=== PATIENT | female | born 1950 | race Caucasian/White ===

== ENCOUNTER 2018-10-04 17:27 | Emergency (ER) | payer MEDICARE, OTHER ==
[2018-10-04 18:03] VITALS: TEMP 98
[2018-10-04] MEDS ORDERED: SODIUM CHLORIDE 0.9% 500 ML 500 ML IV STA (18:10)
--- NOTE | 2018-10-04 18:10 | ED ---
Recheck HPI - General Chief Complaint: Recheck/Abnormal Lab/Rx Stated Complaint: Sleeps nonstop, vomiting Time Seen by Provider: 10/04/18 18:08 Source: patient Mode of arrival: wheelchair Limitations: no limitations - History of Present Illness Initial Comments: 68-year-old female with history of cyclic vomiting, precancerous cells of esophagous, alcohol abuse, drinking blood manuel daily presenting today for chief complaint of vomiting x 2 weeks, patient states that she has been vomiting for the past 2 weeks she states she has had chronic vomiting for years. She states that she was told she had precancerous cells that they're monitoring, serial EG Ds. Patient states that she has felt generalized weakness in the past 2 weeks it has stayed in bed. Patient states when she does go to get up she has fallen twice the last 2 weeks the last fall 2 days prior she states she did hit her forehead patient is on eliquis previous DVT of the left leg. When symptoms persisted family brought patient to emergency department for evaluation. Patient denies any abdominal pain, difficulty breathing or swallowing, headache, dizzines, emesis melena hematochezia. Patient denies any other complaints. Remaining ROS (-). Upon arrival patient appears well. No signs of acute distress. - Related Data Allergies Allergy/AdvReac Type Severity Reaction Status Date / Time Sulfa (Sulfonamide Allergy Unknown Verified 10/04/18 18:04 Antibiotics) sulfur dioxide Allergy Unknown Verified 10/04/18 18:04 Review of Systems ROS Statement: Those systems with pertinent positive or pertinent negative responses have been documented in the HPI. ROS Other: All systems not noted in ROS Statement are negative. Past Medical History Past Medical History: Hypertension Additional Past Medical History / Comment(s): dvt left leg History of Any Multi-Drug Resistant Organisms: None Reported Additional Past Surgical History / Comment(s): egd,precancer esophagus Smoking Status: Current every day smoker Past Alcohol Use History: Daily Past Drug Use History: None Reported General Exam - General Exam Comments Initial Comments: General: The patient is awake and alert, in no distress Eye: +3 mm pupils are equal, round and reactive to light, extra-ocular movements are intact. No nystagmus. There is normal conjunctiva bilaterally. No signs of icterus. Ears, nose, mouth and throat: There are moist mucous membranes and no oral lesions. No raccoon or Sac[place]z signs. Neck: The neck is supple, there is no tenderness or JVD. Cardiovascular: There is a regular rate and rhythm. No murmur, rub or gallop is appreciated. Respiratory: Lungs are clear to auscultation, respirations are non-labored, breath sounds are equal. No wheezes, stridor, rales, or rhonchi. Gastrointestinal: Soft, non-distended, non-tender abdomen without masses or organomegaly noted. There is no rebound or guarding present. No CVA tenderness. Bowel sounds are unremarkable. Musculoskeletal: Normal ROM, no tenderness. Strength 5/5 of the UE and LE b/l. Sensation intact. Radial pulses equal bilaterally 2+. Neurological: A&O x 3. CN II-XII intact, There are no obvious motor or sensory deficits. Coordination appears grossly intact. Speech is normal. Skin: Skin is warm and dry and no rashes or lesions are noted. Psychiatric: Cooperative, appropriate mood & affect, normal judgment. Limitations: no limitations Course Vital Signs 10/04/18 18:00 Temperature 98.0 F Pulse Rate 100 Respiratory 18 Rate Blood Pressure 152/87 O2 Sat by Pulse 97 Oximetry Medical Decision Making - Medical Decision Making 68-year-old female presenting for generalized weakness. No neurological deficits on examination or complaints. Patient does have history of fall 2 days prior on with head injury. CT revealed a anterior aspect C1 fracture without significant encroachment of the foramina or spinal canal. Patient has no r adicular symptoms or weakness on examination. In addition patient was noted to have hyperkalemia on laboratory studies. Patient EKG does not show significant hyperacute T waves. No other acute findings. Patient was given calcium gluconate. However due patient C1 fracture patient be transferred to the [facility] for level of care. I discussed the case with Dr. Frost who is agreeable with transfer at this time. I discussed laboratory results as well as imaging studies with patient was agreeable transfer at this time. I received a call back from the [facility] they had spoke with on-call neurosurgeon Dr. Esteban who recommended transfer to [facility] due to lack of resources surgically at [facility]. - Lab Data Result diagrams: 10/04/18 18:58 10/04/18 18:58 Lab Results 07/08/1810/04/18 10/04/18 Range/Units 18:58 18:58 18:58 WBC 8.2 (3.8-10.6) k/uL RBC 3.37 L (3.80-5.40) m/uL Hgb 12.4 (11.4-16.0) gm/dL Hct 38.1 (34.0-46.0) % MCV 112.8 H (80.0-100.0) fL MCH 36.7 H (25.0-35.0) pg MCHC 32.5 (31.0-37.0) g/dL RDW 15.7 H (11.5-15.5) % Plt Count 316 (150-450) k/uL Neutrophils % 81 % Lymphocytes % 11 % Monocytes % 5 % Eosinophils % 1 % Basophils % 1 % Neutrophils # 6.6 (1.3-7.7) k/uL Lymphocytes # 0.9 L (1.0-4.8) k/uL Monocytes # 0.4 (0-1.0) k/uL Eosinophils # 0.1 (0-0.7) k/uL Basophils # 0.0 (0-0.2) k/uL Manual Slide Review Performed Poikilocytosis (manual Present Macrocytosis Marked A Stomatocytes Present Sodium 139 (137-145) mmol/L Potassium 6.1 H* (3.5-5.1) mmol/L Chloride 102 (98-107) mmol/L Carbon Dioxide 25 (22-30) mmol/L Anion Gap 12 mmol/L BUN 20 H (7-17) mg/dL Creatinine 1.14 H (0.52-1.04) mg/dL Est GFR (CKD-EPI)AfAm 58 (>60 ml/min/1.73 sqM) Est GFR (CKD-EPI)NonAf 50 (>60 ml/min/1.73 sqM) Glucose 92 (74-99) mg/dL Calcium 9.2 (8.4-10.2) mg/dL Magnesium 1.0 L (1.6-2.3) mg/dL Total Bilirubin 0.8 (0.2-1.3) mg/dL AST 81 H (14-36) U/L ALT 38 (9-52) U/L Alkaline Phosphatase 87 (38-126) U/L Troponin I <0.012 (0.000-0.034) ng/mL Total Protein 6.8 (6.3-8.2) g/dL Albumin 4.3 (3.5-5.0) g/dL Amylase 53 (30-110) U/L Lipase 116 (23-300) U/L - EKG Data EKG Comments: Ventricular rate 92 bpm, KS interval 122 ms, QRS duration 76 ms, QT/QTC 358/442 ms. No hyperacute T waves. No ST elevation or depression. Disposition Clinical Impression: Hyperkalemia, C1 cervical fracture, Fall, Head injury, Generalized weakness Disposition: OTHER INSTITUTION NOT DEFINED Condition: Serious Is patient prescribed a controlled substance at d/c from ED?: No Referrals: None,Stated [REFERRING] - 1-2 days Time of Disposition: 20:29 - Out of Hospital Transfer - Req. Specs Out of Hospital Transfer - Requested Specifics: Other Emergency Center ([facility]- (Dr. Esteban request))
[2018-10-04 19:11] LABS: Basophils % (A) 1 %; Eosinophils # (A) 0.1 k/uL (0-0.7); Eosinophils % (A) 1 %; HCT 38.1 % (34.0-46.0); HGB 12.4 gm/dL (11.4-16.0); Lymphocytes # (A) 0.9 k/uL (1.0-4.8); Lymphocytes % (A) 11 %; MCH 36.7 pg (25.0-35.0); MCHC 32.5 g/dL (31.0-37.0); MCV 112.8 fL (80.0-100.0); Macrocytosis Marked; Monocytes # (A) 0.4 k/uL (0-1.0); Monocytes % (A) 5 %; Neutrophils # (A) 6.6 k/uL (1.3-7.7); Neutrophils % (A) 81 %; Platelet Count 316 k/uL (150-450); RBC 3.37 m/uL (3.80-5.40); RDW 15.7 % (11.5-15.5); WBC 8.2 k/uL (3.8-10.6)
[2018-10-04 19:20] LABS: Albumin 4.3 g/dL (3.5-5.0); Calcium 9.2 mg/dL (8.4-10.2); Total Bilirubin 0.8 mg/dL (0.2-1.3); Total Protein 6.8 g/dL (6.3-8.2)
[2018-10-04 19:24] LABS: Potassium 6.1 mmol/L (3.5-5.1)
[2018-10-04] MEDS ORDERED: CALCIUM GLUCONATE 1 GM in SODIUM CHLORIDE 0.9% 100 ML IVPB ONE (19:25)
[2018-10-04] MEDS ORDERED: MAGNESIUM SULFATE-D5W PMX 1 GM in DEXTROSE/WATER 1 100ML.BAG IVPB SCH (19:30)
[2018-10-04 19:33] LABS: Poikilocytosis (M) Present; Stomatocytes Present
[2018-10-04] MEDS ORDERED: SODIUM CHLORIDE 0.9% 1,000 ML IV ONE (20:16)
--- NOTE | 2018-10-04 20:17 | CT ---
EXAMINATION TYPE: CT brain divina wo con DATE OF EXAM: 10/04/2018 COMPARISON: None HISTORY: ams. fall. CT DLP: 1300.5 mGycm Automated exposure control for dose reduction was used. TECHNIQUE: CT scan of the head and cervical spine are performed without contrast. FINDINGS: There is cerebral cortical atrophy. There is no mass effect nor midline shift. There is n o sign of intracranial hemorrhage. There is mucosal thickening in the sphenoid sinus. Cervical vertebra have normal alignment. There is some degenerative disc space narrowing from C4 to C 7 with spurring of the endplates. Facet joints are intact. The skull base is intact. There is nondisplaced fracture of the anterior arch of C1 vertebra. I see no other definite fracture. IMPRESSION: Mild atrophy. No acute intracranial abnormality. Mild sphenoid sinusitis. Possible nasal bone fracture. This could be an old fracture on the left side. Nondisplaced fracture anterior arch of C1 vertebra on the right side. This exam was discussed with ER physician at 8:15 PM.
[2018-10-04] MEDS: ALPRAZolam 0.5 MG TAB PO STA ×2 (20:20→20:22)
[2018-10-04] MEDS ORDERED: MORPHINE SULFATE 2 MG/ML SYRINGE IVP STA (20:23)
--- NOTE | 2018-10-04 20:28 | XR ---
EXAMINATION TYPE: XR KUB DATE OF EXAM: 10/04/2018 COMPARISON: NONE HISTORY: Weakness. Vomiting. TECHNIQUE: 3 views supine FINDINGS: There is no sign of intestinal obstruction or pneumoperitoneum. Fecal pattern is normal. Th ere is no sign of a mass. There are no pathologic calcifications over the kidneys. Lung bases appear clear. IMPRESSION: Nonacute abdomen.
[2018-10-04] MEDS ORDERED: METOCLOPRAMIDE 5 MG/ML 2 ML VIAL IVP STA (20:35)
[2018-10-04] MEDS ORDERED: ALBUTEROL NEBULIZED (CONC) 5 MG, SODIUM CHLORIDE 0.9% NEBULIZ 3 ML INHALATION STA ×2 (20:40)
[2018-10-04 21:13] LABS: Appearance,Urine Cloudy (Clear); Bacteria,Urine Rare /hpf; Bilirubin,Urine Negative (Negative); Blood,Urine Negative (Negative); Color,Urine Yellow; Glucose,Urine (UA) Negative (Negative); Hyaline Casts,Urine 51 /lpf (0-2); Ketones,Urine 1+ (Negative); Leukocyte Esterase,Urine Negative (Negative); Mucus,Urine Occasional /hpf; Nitrite,Urine Negative (Negative); PH, Urine 5.5 (5.0-8.0); Protein,Urine Trace (Negative); RBC,Urine <1 /hpf (0-5); Specific Gravity,Urine 1.017 (1.001-1.035); Squamous Epithelial Cell,Urine 2 /hpf (0-4); Urobilinogen,Urine <2.0 mg/dL (<2.0); WBC,Urine 1 /hpf (0-5)
[2018-10-04 21:27] VITALS: BP 120/88; RESP 16
[2018-10-04 21:46] VITALS: PULSE 100
[2018-10-04] MEDS ORDERED: INSULIN REGULAR 100 UNIT/ML VIAL IV ONE (21:52)
[2018-10-04] MEDS ORDERED: DEXTROSE 10 % IN WATER 250 ML IV ONE (21:52)
[2018-10-04] MEDS ORDERED: DEXTROSE 50% SYRINGE 50 ML IVP STA (21:53)
[2018-10-04] MEDS ORDERED: DEXTROSE 50%-WATER 50 ML VIAL IV STA (22:32)
== END 2018-10-04 22:34 | disposition short-term general hospital (02) ==
LOC: EC 17:27
DX: S12.000A Unspecified displaced fracture of first cervical vertebra, initial encounter for closed fracture (principal); E87.5 Hyperkalemia; S09.90XA Unspecified injury of head, initial encounter; R11.10 Vomiting, unspecified; R53.1 Weakness; R29.6 Repeated falls; F17.200 Nicotine dependence, unspecified, uncomplicated; Z88.2 Allergy status to sulfonamides; Z91.048 Other nonmedicinal substance allergy status; Z79.01 Long term (current) use of anticoagulants; Z86.718 Personal history of other venous thrombosis and embolism; W19.XXXA Unspecified fall, initial encounter
CPT/HCPCS: 36415; 94640; 93005; 80053; 82150; 83690; 83735; 84484; 85025; 81001; 74018; 72125; 70450; 99285; 96365; 96375 ×3; 96361; L0120; J2765; J2270; J0610

== ENCOUNTER 2021-03-16 12:34 | Inpatient (IN) | payer MEDICARE, OTHER ==
[2021-03-16] MEDS ORDERED: SODIUM CHLORIDE 0.9% 1,000 ML IV STA (12:43)
[2021-03-16 13:58] LABS: Albumin 2.8 g/dL (3.5-5.0); Calcium 6.5 mg/dL (8.4-10.2); INR 1.1 (<1.2); Partial Thromboplastin Time 30.1 sec (22.0-30.0); Prothrombin Time 11.8 sec (9.0-12.0); Total Bilirubin 0.6 mg/dL (0.2-1.3); Total Protein 5.5 g/dL (6.3-8.2)
[2021-03-16 14:03] LABS: HGB 10.5 gm/dL (11.4-16.0); Hypochromasia Slight; MCH 39.8 pg (25.0-35.0); MCV 128.1 fL (80.0-100.0); Macrocytosis Marked; Mean Platelet Volume 8.9; Platelet Count 144 k/uL (150-450); RBC 2.65 m/uL (3.80-5.40); WBC 2.7 k/uL (3.8-10.6)
--- NOTE | 2021-03-16 14:18 | XR ---
EXAMINATION TYPE: XR chest 2V DATE OF EXAM: 03/16/2021 COMPARISON: NONE TECHNIQUE: PA and lateral views submitted. HISTORY: Weakness FINDINGS: Bilateral infiltrate. Diffuse interstitial pattern. Postsurgical change overlying the cervical spine. Diffuse osteopenia. No pneumothorax. Degenerative changes of the spine. Hyperinflation suggests COPD . IMPRESSION: 1. COPD with bilateral interstitial and alveolar infiltrates correlate for pneumonia versus CHF.
--- NOTE | 2021-03-16 14:19 | XR ---
EXAMINATION TYPE: XR foot complete RT DATE OF EXAM: 03/16/2021 COMPARISON: NONE HISTORY: Pain TECHNIQUE: Three views are submitted. FINDINGS: Diffuse osteopenia with arthropathy of the first MTP joint. There is a displaced fracture base fifth metatarsal. Small calcaneal spurs are seen. Hammertoe deformities noted. Chronic appearing deformitie s of the distal third metatarsal suggestive of previous fracture. IMPRESSION: 1. Displaced fracture base fifth metatarsal. 2. Diffuse osteopenia with severe arthropathy first MTP joint.
[2021-03-16 14:21] LABS: Magnesium 0.9 mg/dL (1.6-2.3)
[2021-03-16] MEDS ORDERED: CALCIUM GLUCONATE 1 GM in SODIUM CHLORIDE 0.9% 100 ML IVPB ONE (14:29)
--- NOTE | 2021-03-16 14:31 | ED ---
Weakness HPI - General Chief complaint: Weakness Stated complaint: Weakness Time Seen by Provider: 03/16/21 12:43 Source: patient, family, EMS, RN notes reviewed Mode of arrival: EMS Limitations: no limitations - History of Present Illness Initial comments: Patient is a 71-year-old female that presents to the emergency department with complaining of generalized weakness. notes the patient does drink about a height of vodka per day. also notes that she's been complaining of right foot pain for the past 4-5 months. Patient notes that she otherwise feels okay. She did appear to be somewhat malnourished while sitting up in bed during exam and interview. She denied any chest pain shortness of breath headache nausea vomiting diarrhea constipation fever fatigue chills. - Related Data Allergies Allergy/AdvReac Type Severity Reaction Status Date / Time Sulfa (Sulfonamide Allergy Unknown Verified 03/16/21 12:57 Antibiotics) sulfur dioxide Allergy Unknown Verified 03/16/21 12:57 Review of Systems ROS Statement: Those systems with pertinent positive or pertinent negative responses have been documented in the HPI. ROS Other: All systems not noted in ROS Statement are negative. Past Medical History Past Medical History: Hypertension Additional Past Medical History / Comment(s): dvt left leg History of Any Multi-Drug Resistant Organisms: None Reported Additional Past Surgical History / Comment(s): egd,precancer esophagus Past Psychological History: No Psychological Hx Reported Smoking Status: Current every day smoker Past Alcohol Use History: Daily, Heavy Past Drug Use History: None Reported General Exam Limitations: no limitations General appearance: alert, in no apparent distress Head exam: Present: atraumatic, normocephalic, normal inspection Eye exam: Present: normal appearance, PERRL, EOMI. Absent: scleral icterus, conjunctival injection, periorbital swelling ENT exam: Present: normal exam, mucous membranes moist Neck exam: Present: normal inspection Respiratory exam: Present: normal lung sounds bilaterally. Absent: respiratory distress, wheezes, rales, rhonchi, stridor Cardiovascular Exam: Present: regular rate, normal rhythm, normal heart sounds. Absent: systolic murmur, diastolic murmur, rubs, gallop, clicks Extremities exam: Present: normal inspection, full ROM, normal capillary refill. Absent: tenderness, pedal edema, joint swelling, calf tenderness Neurological exam: Present: alert, oriented X3 Psychiatric exam: Present: normal affect, normal mood Skin exam: Present: warm, dry, intact, normal color. Absent: rash Course Vital Signs 03/16/21 03/16/21 12:39 13:01 Temperature 99.3 F Pulse Rate 82 Respiratory 22 22 Rate Blood Pressure 118/81 O2 Sat by Pulse 92 L Oximetry EKG Findings - EKG Comments: EKG Findings:: Ventricular rate 105 bpm, AR interval 122 ms, QRS duration 72 ms, QTC 454 ms, PRT axes 60/50/57. Sinus tachycardia with frequent and consecutive premature ventricular complexes, normal ECG. Medical Decision Making - Medical Decision Making 71-year-old female with weakness. EKG, labs, cardiac cath technician, chest x-ray, 1 L normal saline ordered. Labs: White blood cells 2.7, magnesium 0.9, calcium 6.5, troponin negative. Chest x-ray: COPD with bilateral interstitial and alveolar infiltrates correlate for pneumonia versus CHF. Right foot x-ray: Displaced fracture a's fifth metatarsal. Diffuse osteopenia with severe arthropathy first MTP joint. Given patient's labs and history patient will be admitted for observation for hypomagnesemia and hypocalcemia. Case discussed with Dr. Rhodes, patient will be admitted for observation. Dr. Vinson was consulted and will except the admit. - Lab Data Result diagrams: 03/16/21 13:29 03/16/21 13:29 Lab Results 03/16/21 03/16/21 03/16/21 Range/Units 13:29 13:29 13:29 WBC 2.7 L (3.8-10.6) k/uL RBC 2.65 L (3.80-5.40) m/uL Hgb 10.5 L (11.4-16.0) gm/dL Hct 34.0 (34.0-46.0) % MCV 128.1 H (80.0-100.0) fL MCH 39.8 H (25.0-35.0) pg MCHC 31.0 (31.0-37.0) g/dL RDW 14.0 (11.5-15.5) % Plt Count 144 L (150-450) k/uL MPV 8.9 Neutrophils % (Manual) 71 % Lymphocytes % (Manual) 24 % Monocytes % (Manual) 5 % Neutrophils # (Manual) 1.92 (1.3-7.7) k/uL Lymphocytes # (Manual) 0.65 L (1.0-4.8) k/uL Monocytes # (Manual) 0.14 (0-1.0) k/uL Nucleated RBCs 0 (0-0) /100 WBC Polychromasia Present Hypochromasia Slight Macrocytosis Marked A Stomatocytes Present PT 11.8 (9.0-12.0) sec INR 1.1 (<1.2) APTT 30.1 H (22.0-30.0) sec Sodium 140 (137-145) mmol/L Potassium 4.0 (3.5-5.1) mmol/L Chloride 110 H (98-107) mmol/L Carbon Dioxide 22 (22-30) mmol/L Anion Gap 8 mmol/L BUN 17 (7-17) mg/dL Creatinine 1.04 (0.52-1.04) mg/dL Est GFR (CKD-EPI)AfAm 63 (>60 ml/min/1.73 sqM) Est GFR (CKD-EPI)NonAf 55 (>60 ml/min/1.73 sqM) Glucose 92 (74-99) mg/dL Calcium 6.5 L (8.4-10.2) mg/dL Magnesium 0.9 L* (1.6-2.3) mg/dL Total Bilirubin 0.6 (0.2-1.3) mg/dL AST 47 H (14-36) U/L ALT 15 (4-34) U/L Alkaline Phosphatase 136 H (38-126) U/L Troponin I (0.000-0.034) ng/mL Total Protein 5.5 L (6.3-8.2) g/dL Albumin 2.8 L (3.5-5.0) g/dL 03/16/21 Range/Units 13:29 WBC (3.8-10.6) k/uL RBC (3.80-5.40) m/uL Hgb (11.4-16.0) gm/dL Hct (34.0-46.0) % MCV (80.0-100.0) fL MCH (25.0-35.0) pg MCHC (31.0-37.0) g/dL RDW (11.5-15.5) % Plt Count (150-450) k/uL MPV Neutrophils % (Manual) % Lymphocytes % (Manual) % Monocytes % (Manual) % Neutrophils # (Manual) (1.3-7.7) k/uL Lymphocytes # (Manual) (1.0-4.8) k/uL Monocytes # (Manual) (0-1.0) k/uL Nucleated RBCs (0-0) /100 WBC Polychromasia Hypochromasia Macrocytosis Stomatocytes PT (9.0-12.0) sec INR (<1.2) APTT (22.0-30.0) sec Sodium (137-145) mmol/L Potassium (3.5-5.1) mmol/L Chloride (98-107) mmol/L Carbon Dioxide (22-30) mmol/L Anion Gap mmol/L BUN (7-17) mg/dL Creatinine (0.52-1.04) mg/dL Est GFR (CKD-EPI)AfAm (>60 ml/min/1.73 sqM) Est GFR (CKD-EPI)NonAf (>60 ml/min/1.73 sqM) Glucose (74-99) mg/dL Calcium (8.4-10.2) mg/dL Magnesium (1.6-2.3) mg/dL Total Bilirubin (0.2-1.3) mg/dL AST (14-36) U/L ALT (4-34) U/L Alkaline Phosphatase (38-126) U/L Troponin I <0.012 (0.000-0.034) ng/mL Total Protein (6.3-8.2) g/dL Albumin (3.5-5.0) g/dL - EKG Data -: EKG Interpreted by Pr EKG shows normal: sinus rhythm Rate: normal EKG Comments: Ventricular rate 105 bpm, AR interval 122 ms, QRS duration 72 ms, QTC 454 ms, PRT axes 60/50/57. Sinus tachycardia with frequent and consecutive premature ventricular complexes, normal ECG. - Radiology Data Radiology results: report reviewed, image reviewed Chest x-ray: COPD with bilateral interstitial and alveolar infiltrates correlate for pneumonia versus CHF. Right foot x-ray: Displaced fracture a's fifth metatarsal. Diffuse osteopenia with severe arthropathy first MTP joint. Disposition Clinical Impression: Hypomagnesemia, Hypocalcemia Disposition: ADMITTED IP TO THIS HOSP Condition: Stable Is patient prescribed a controlled substance at d/c from ED?: No Referrals: None,Stated [Primary Care Provider] - 1-2 days Time of Disposition: 15:28
[2021-03-16] MEDS: MAGNESIUM SULFATE-D5W PMX 1 GM in DEXTROSE/WATER 1 100ML.BAG IVPB SCH ×3 (14:38→23:55)
[2021-03-16 14:58] LABS: Lymphocytes # (M) 0.65 k/uL (1.0-4.8); Monocytes # (M) 0.14 k/uL (0-1.0); Neutrophils # (M) 1.92 k/uL (1.3-7.7); Neutrophils % (M) 71 %; Nucleated Red Blood Cells 0 /100 WBC (0-0); Polychromasia Present; Stomatocytes Present; Total Cells Counted 99
[2021-03-16] MEDS ORDERED: NALOXONE 0.4 MG/ML 1 ML VIAL IV PRN (15:16)
[2021-03-16] MEDS ORDERED: SODIUM CHLORIDE 0.9% 1,000 ML IV SCH (15:30)
[2021-03-16] MEDS ORDERED: LORazepam 2 MG/ML INJ IV PRN ×2 (19:21)
[2021-03-16] MEDS ORDERED: Potassium Replacement Protocol 1 EACH MISC MISCELLANE PRN (19:21)
[2021-03-16] MEDS ORDERED: Magnesium Replacement Protocol 1 EACH MISC MISCELLANE PRN (19:21)
[2021-03-16] MEDS ORDERED: THIAMINE 100 MG/ML 2 ML VIAL IM STA (19:21)
--- NOTE | 2021-03-16 20:07 | HP ---
HISTORY AND PHYSICAL DATE OF SERVICE: 03/16/2021. CHIEF COMPLAINT: Weakness and some change in mental status. HISTORY OF PRESENT ILLNESS: This 71-year-old woman with a past medical history of hypertension, history of DVT of the left leg. Apparently also had history of smoking and alcohol. Last drink was about a month ago, according to her, but the patient and some change in mental status. Patient taken to [facility] and was admitted for further evaluation treatment. Patient drink vodka every day. The patient also had some right foot pain for the past 4 or 5 months and an x-ray of the foot was also done which showed displaced fracture of the 5th metatarsal and diffuse osteopenia was also noted. The patient was admitted for further evaluation and treatment. The patient's Covid 19 was also found to be positive. Patient had multiple lab abnormalities, partly related to alcohol as well. The patient also has severe hypomagnesemia. PAST MEDICAL HISTORY: History of hypertension, DVT of the legs, history of nicotine dependence, EtOH. MEDICATIONS: Home medications are: Benadryl, omeprazole, trazodone, Eliquis, Tylenol. Doses reviewed. ALLERGIES: SULFA AND ASPIRIN. FAMILY HISTORY: No history of heart disease or strokes in the family. SOCIAL HISTORY: History of smoking, alcohol as mentioned. REVIEW OF SYSTEMS: ENT: Diminished vision. Diminished hearing. CARDIOVASCULAR system: No angina or palpitations. RESPIRATORY: As mentioned earlier. GI no nausea or vomiting. no dysuria. NERVOUS SYSTEM: No numbness or weakness. ALLERGY/IMMUNOLOGY: No asthma or hayfever. MUSCULOSKELETAL as mentioned earlier. HEMATOLOGY/ONCOLOGY: No history of anemia. ENDOCRINE: No history of diabetes or hypothyroidism. CONSTITUTIONAL: As mentioned. DERMATOLOGY: Negative. RHEUMATOLOGY: Negative. PSYCHIATRIC: As mentioned earlier. PHYSICAL EXAMINATION: Alert and oriented times three. Pulse 82, blood pressure 118/81, respirations 22, temperature 99.3, pulse ox 92% on room air. HEENT: Conjunctivae normal. CARDIOVASCULAR: S1, S2 muffled. RESPIRATION: Breath sounds diminished in the bases. A few scattered rhonchi. ABDOMEN: Soft, nontender. No mass palpable. LEGS: No edema. No swelling. Right foot pain and tenderness present. SKIN: No ulcers, rashes or bleeding. JOINTS: No active deforming arthropathy. NERVOUS SYSTEM: No focal deficits. LABS: WBC 2.7, hemoglobin 10.5, and sodium 140, potassium 4. Magnesium 1.9. ASSESSMENT: 1. Change in mental status, acute metabolic encephalopathy, possibly early delirium tremens. 2. History of ETOH. 3. Fracture of the fifth metatarsal on the right. 4. Severe gait dysfunction. 5. Pancytopenia, possibly secondary to ETOH. 6. Acute COVID-19 infection. 7. Severe hypomagnesemia. 8. Severe hypocalcemia. 9. Increased AST with mild alcoholic hepatitis. 10.Hypoalbuminemia with possibly severe protein-calorie malnutrition with body mass index of 17.6. 11.Rule out chronic liver disease. 12.History of hypertension. 13.History of deep vein thrombosis of the left leg. 14.History of possible Hansen's esophagus. 15.History of nicotine dependence. 16.History of ETOH. 17.FULL CODE. RECOMMENDATIONS AND DISCUSSION: This 71-year-old woman who presented with multiple complex medical issues, at this time I recommend continue the current medications, management and symptomatic treatment, CIWA protocol. Supplement vitamins. I would also recommend PT/OT evaluation, possible ECF rehab. Recommend Gastroenterology consultation and evaluation for history of precancer lesion in the esophagus. The patient has got significant weight loss and features of malnutrition. Prognosis extremely guarded because of multiple complex medical issues. Orthopedic evaluation also being sought for the right foot fracture and further recommendations to follow. Recommend the patient follow up with primary physician closely in the outpatient setting. MAGALY / LONNIE: [id number] / MTDD
[2021-03-16] MEDS: APIXABAN 5 MG TAB PO SCH (21:23)
[2021-03-16] MEDS: traZODone HCL 50 MG TAB PO SCH (21:23)
[2021-03-16] MEDS: 0.9% NACL WITH KCL 20 MEQ/L 1,000 ML with THIAMINE 100 MG, FOLIC ACID 1 MG IV SCH ×3 (22:06)
[2021-03-16 22:35] LABS: C Reactive Protein 15.8 mg/dL (<1.0)
[2021-03-16] MEDS: CHOLECALCIFEROL 25 MCG (1000 IU) TABLET PO SCH (22:53)
[2021-03-16] MEDS: ZINC SULFATE 220 MG CAP PO SCH (22:53)
[2021-03-16] MEDS: LORazepam 2 MG/ML INJ IV PRN (22:54)
[2021-03-17] MEDS: MAGNESIUM SULFATE-D5W PMX 1 GM in DEXTROSE/WATER 1 100ML.BAG IVPB SCH ×3 (01:12→03:36)
[2021-03-17] MEDS: ZINC SULFATE 220 MG CAP PO SCH (08:05)
[2021-03-17] MEDS: PANTOPRAZOLE 40 MG TABLET PO SCH (08:05)
[2021-03-17] MEDS: CHOLECALCIFEROL 25 MCG (1000 IU) TABLET PO SCH (08:05)
[2021-03-17] MEDS: APIXABAN 5 MG TAB PO SCH (08:06)
[2021-03-17] MEDS: METOPROLOL SUCCINATE (ER) 25 MG TAB.ER.24H PO SCH (09:07)
[2021-03-17 09:08] LABS: HCT 24.5 % (37.2-46.3); HGB 7.6 g/dL (12.0-15.0); MCH 39.4 pg (27.0-32.0); MCV 126.9 fL (80.0-97.0); Mean Platelet Volume 10.9 fL (9.5-12.2); Platelet Count 115 X 10*3/uL (140-440); RBC 1.93 X 10*6/uL (4.10-5.20); RDW 13.2 % (11.5-14.5); WBC 2.35 X 10*3/uL (4.50-10.00)
[2021-03-17 10:05] LABS: Basophils # (A) 0.01 X 10*3/uL (0.00-0.10); Basophils % (A) 0.4 %; Eosinophils # (A) 0.02 X 10*3/uL (0.04-0.35); Eosinophils % (A) 0.9 %; Lymphocytes # (A) 0.72 X 10*3/uL (0.90-5.00); Lymphocytes % (A) 30.6 %; Monocytes # (A) 0.22 X 10*3/uL (0.20-1.00); Monocytes % (A) 9.4 %; Neutrophils # (A) 1.37 X 10*3/uL (1.80-7.70); Neutrophils % (A) 58.3 %
[2021-03-17 10:06] LABS: Macrocytosis (M) 2+
[2021-03-17 10:20] LABS: African American GFR (CKD) 86.6 (60.0-200.0); Albumin 2.4 g/dL (3.8-4.9); Albumin/Globulin Ratio 1.33 (1.60-3.17); Anion Gap 9.9 mmol/L (10.00-18.00); BUN/Creat Ratio 15.63 Ratio (12.00-20.00); Blood Urea Nitrogen 12.5 mg/dL (9.0-27.0); Calcium 6.6 mg/dL (8.7-10.3); Carbon Dioxide 18.1 mmol/L (20.0-27.5); Globulin 1.8 g/dL (1.6-3.3); Magnesium 3.1 mg/dL (1.5-2.4); Non-African American GFR(CKD) 74.7 (60.0-200.0); Potassium 3.5 mmol/L (3.5-5.5); Total Bilirubin 0.3 mg/dL (0.30-1.20); Total Protein 4.2 g/dL (6.2-8.2)
--- NOTE | 2021-03-17 10:44 | P.CRDCN ---
History of Present Illness Consult date: 03/17/21 History of present illness: CHIEF COMPLAINT: Atrial fibrillation HISTORY OF PRESENT ILLNESS: This is a 71-year-old female with a past medical history significant for hypertension, DVT, alcohol abuse, nicotine dependence. Patient does not follow with a loan assistant. We have been asked to see the patient in consultation for tachycardia and possible atrial fibrillation. Patient is admitted to the hospital secondary to Covid. Patient is on room air with oxygen saturations greater than 92%. Blood pressure 100/63. Telemetry reveals heart rate between 80 and 120. Patient is maintaining sinus mechanism with frequent PACs. No evidence of atrial fibrillation visualized. DIAGNOSTICS: EKG reveals sinus tachycardia with PACs Chest xray COPD with bilateral interstitial and alveolar infiltrates correlate for pneumonia versus CHF Laboratory data: WBC 2.35. Hemoglobin 7.6. Platelet count 115. D-dimer 0.95. Sodium 141. Potassium 3.5. BUN 12.5. Creatinine 0.8. Current home cardiac medications include Eliquis 5 mg twice a day REVIEW OF SYSTEMS: Thorough review of systems not completed secondary to limited evaluation/examination due to Covid19 PHYSICAL EXAM: Thorough physical exam not completed secondary to limited evaluation/examination due to Covid19 ASSESSMENT: Covid 19 Sinus tachycardia with PACS, no atrial fibrillation visualized Pancytopenia History of DVT Alcohol abuse Nicotine dependence Hypomagnesemia PLAN: Obtain 2-D echo to assess cardiac structure and function Continue telemetry monitoring Continue to monitor electrolytes and supplement as needed Begin metoprolol succinate 25 mg daily Continue Eliquis Further recommendations pending patient's course Nurse practitioner note has been reviewed by physician. Signing provider agrees with the documented findings, assessment, and plan of care. Past Medical History Past Medical History: Hypertension Additional Past Medical History / Comment(s): dvt left leg History of Any Multi-Drug Resistant Organisms: None Reported Additional Past Surgical History / Comment(s): egd,precancer esophagus Past Psychological History: No Psychological Hx Reported Smoking Status: Current every day smoker Past Alcohol Use History: Daily, Heavy Past Drug Use History: None Reported Medications and Allergies Home Medications Medication Instructions Recorded Confirmed Type Acetaminophen [Tylenol 8 Hour] 650 mg PO Q6H PRN 03/16/21 03/16/21 History Apixaban [Eliquis] 5 mg PO BID 03/16/21 03/16/21 History Omeprazole 10 mg PO DAILY 03/16/21 03/16/21 History diphenhydrAMINE [Benadryl] 25 mg PO DAILY PRN 03/16/21 03/16/21 History traZODone HCL 25 mg PO HS 03/16/21 03/16/21 History Allergies Allergy/AdvReac Type Severity Reaction Status Date / Time Sulfa (Sulfonamide Allergy Rash/Hives Verified 03/16/21 15:53 Antibiotics) sulfur dioxide Allergy Rash/Hives Verified 03/16/21 15:53 aspirin AdvReac Nausea & Verified 03/16/21 15:53 Vomiting Physical Exam Vitals: Vital Signs Temp Pulse Pulse Resp BP BP Pulse Ox 03/17/21 09:00 98.7 F 83 17 100/63 93 L 03/17/21 05:29 99.1 F 98 17 101/66 96 03/17/21 02:17 97.6 F 113 H 87/54 90 L 03/17/21 01:34 101 H 03/16/21 23:44 98.3 F 138 H 16 122/85 97 03/16/21 21:01 72 03/16/21 20:01 99.1 F 134 H 18 127/89 97 03/16/21 20:00 138 H 16 03/16/21 17:56 99.2 F 100 20 121/69 96 03/16/21 16:58 100 18 112/68 96 03/16/21 13:01 22 03/16/21 12:39 99.3 F 82 22 118/81 92 L Intake and Output 03/16/21 03/17/21 03/17/21 22:59 06:59 14:59 Intake Total 300 Balance 300 Intake: Oral 300 Other: # Voids 2 # Bowel Movements 1 3 Weight 49.442 kg Results 03/17/21 06:11 03/17/21 06:11 Cardiac Enzymes 03/16/21 03/16/21 03/16/21 Range/Units 13:29 13:29 13:29 AST 47 H (14-36) U/L Lactate Dehydrogenase 701 H (313-618) U/L Troponin I <0.012 (0.000-0.034) ng/mL 03/17/21 Range/Units 06:11 AST 30 (14-36) U/L Lactate Dehydrogenase (313-618) U/L Troponin I (0.000-0.034) ng/mL Coagulation 03/16/21 Range/Units 13:29 PT 11.8 (9.0-12.0) sec APTT 30.1 H (22.0-30.0) sec CBC 03/16/21 03/17/21 Range/Units 13:29 06:11 WBC 2.7 L 2.35 L (3.8-10.6) k/uL RBC 2.65 L 1.93 L (3.80-5.40) m/uL Hgb 10.5 L 7.6 L (11.4-16.0) gm/dL Hct 34.0 24.5 L (34.0-46.0) % Plt Count 144 L 115 L (150-450) k/uL Comprehensive Metabolic Panel 03/16/21 03/17/21 Range/Units 13:29 06:11 Sodium 140 141 (137-145) mmol/L Potassium 4.0 3.5 (3.5-5.1) mmol/L Chloride 110 H 113 H (98-107) mmol/L Carbon Dioxide 22 18.1 L (22-30) mmol/L BUN 17 12.5 (7-17) mg/dL Creatinine 1.04 0.8 (0.52-1.04) mg/dL Glucose 92 96 (74-99) mg/dL Calcium 6.5 L 6.6 L (8.4-10.2) mg/dL AST 47 H 30 (14-36) U/L ALT 15 11 (4-34) U/L Alkaline Phosphatase 136 H 116 (38-126) U/L Total Protein 5.5 L 4.2 L (6.3-8.2) g/dL Albumin 2.8 L 2.4 L (3.5-5.0) g/dL Current Medications Generic Name Dose Route Start Last Admin Trade Name Freq PRN Reason Stop Dose Admin Hydrocodone Bitart/Acetaminophen 1 each 03/16/21 19:21 Hydrocodone/Apap 5-325mg 1 Each Tab PO Q6HR PRN Pain Apixaban 5 mg 03/16/21 21:00 03/17/21 08:06 Apixaban 5 Mg Tab PO 5 mg BID GWYN Administration Protocol Cholecalciferol 25 mcg 03/16/21 19:30 03/17/21 08:05 Cholecalciferol 25 Mcg (1000 Iu) Tablet PO 25 mcg DAILY GWYN Administration Thiamine HCl 100 mg/ Folic 1,001.2 mls @ 50 mls/hr 03/16/21 19:30 03/16/21 22:06 Acid 1 mg/ Potassium Chloride/ IV 50 mls/hr Sodium Chloride .Q20H2M GWYN Administration Lorazepam 1 mg 03/16/21 19:21 03/16/21 22:54 Lorazepam 2 Mg/Ml Inj IV 1 mg Q2HR PRN Administration CIWA 8 or 9 Lorazepam 1 mg 03/16/21 19:21 Lorazepam 2 Mg/Ml Inj IV Q1HR PRN CIWA 10 to 15 Lorazepam 2 mg 03/16/21 19:21 Lorazepam 2 Mg/Ml Inj IV 03/18/21 19:22 Q10M PRN CIWA 16 or higher Metoprolol Succinate 25 mg 03/17/21 09:00 03/17/21 09:07 Metoprolol Succinate (Er) 25 Mg Tab.Er.24h PO 25 mg DAILY GWYN Administration Miscellaneous Information 1 each 03/16/21 19:21 Magnesium Replacement Protocol 1 Each Misc MISCELLANE DAILY PRN Per Protocol Protocol Miscellaneous Information 1 each 03/16/21 19:21 Potassium Replacement Protocol 1 Each Misc MISCELLANE DAILY PRN Per Protocol Protocol Naloxone HCl 0.2 mg 03/16/21 15:16 Naloxone 0.4 Mg/Ml 1 Ml Vial IV Q2M PRN Opioid Reversal Pantoprazole Sodium 40 mg 03/17/21 07:30 03/17/21 08:05 Pantoprazole 40 Mg Tablet PO 40 mg DAILY@0730 GWYN Administration Trazodone HCl 25 mg 03/16/21 21:00 03/16/21 21:23 Trazodone Hcl 50 Mg Tab PO 25 mg HS GWYN Administration Zinc Sulfate 220 mg 03/16/21 19:30 03/17/21 08:05 Zinc Sulfate 220 Mg Cap PO 220 mg DAILY GWYN Administration Intake and Output 03/16/21 03/17/21 03/17/21 22:59 06:59 14:59 Intake Total 300 Balance 300 Intake: Oral 300 Other: # Voids 2 # Bowel Movements 1 3 Weight 49.442 kg 03/17/21 06:11 03/17/21 06:11
[2021-03-17] MEDS: guaiFENesin SYRUP 100MG/5ML 200 MG/10 ML CUP PO PRN (12:17)
[2021-03-17 13:13] VITALS: BMI 17.6
--- NOTE | 2021-03-17 14:08 | P.PN ---
Progress Note - Text Progress Note Date: 03/17/21 The patient's chart was reviewed and I spoke with the nursing staff. The patient is currently in the hospital with hypomagnesia. She Covid positive as well. The patient told the ER that she has had pain for 4-5 months in the right foot. No known injury. X-rays of the right foot reveals a 5th metatarsal base fracture (Zone 1). X-rays and the case were discussed with Dr. Kay. We are recommending a post op shoe and weightbearing as tolerated on the right foot. The patient may follow up with Dr. Kay in 2 weeks upon discharge from the hospital.
--- NOTE | 2021-03-17 14:31 | P.CONS ---
History of Present Illness - Reason for Consult Consult date: 03/17/21 Anemia Requesting physician: Tristan Vinson - Chief Complaint Generalized weakness - History of Present Illness This is 71-year-old female who presented to the emergency department yesterday with her for generalized weakness. The patient has a past medical history including hypertension, history of DVT and alcohol abuse. Apparently the patient drinks a fifth of bed could daily and has a drink for several years. She also is a smoker of one pack per day for greater than 20-30 years who states she recently quit 2 weeks ago. The patient is somewhat of a poor hi storian and initially stated that she had an EGD done in [place] however now states she did not have an EGD done but was told that she had something on her esophagus and she was supposed to have an EGD done. She states that was about 8 months ago but she had never followed up as she moved to [place] about 2 weeks ago. Patient states that she tested positive for Kovic 2 weeks ago in [place] and she had again PCR is positive. She denies any abdominal pain, nausea, vomiting, black stool but states that she occasionally has a little bit of blood in her stool perhaps once a month. She denies any previous history of colonoscopy. She has not had any recent bleeding she states. She is on Eliquis for hsitory of DVT. On admission she had a hemoglobin of 10.5 with a repeat today of 7.6. She has a macrocytic anemia, pancytopenia CONSISTENT WITH ALCOHOLIC CIRRHOSIS OF THE LIVER. IRON STUDIES WERE ORDERED AND PENDING. TOTAL BILIRUBIN 0.3 AST 30 ALT 11 ALKALINE PHOSPHATASE 116. Review of Systems REVIEW OF SYSTEMS: CARDIOPULMONARY: No chest pain or shortness of breath. Gastrointestinal: No abdominal pain. No nausea or vomiting. No hematemesis, coffee-ground emesis. No rectal bleeding, or melena. She states she has occasional blood in stool perhaps once a month however nothing recently. GENITOURINARY: No dysuria or hematuria. MUSCULOSKELETAL: Reports normal range of motion., Joint pain. SKIN: No rashes. No jaundice. ENDOCRINE: No chills, fevers. No excessive weight gain or loss. No polydipsia or polyuria. PSYCHIATRIC: Unremarkable. NEUROLOGY: No change in mental status. Denies dizziness, headache. ENT: Vision unremarkable. CONSTITUTIONAL: No recent weight loss. No fever, chills, night sweats. Past Medical History Past Medical History: Hypertension Additional Past Medical History / Comment(s): dvt left leg History of Any Multi-Drug Resistant Organisms: None Reported Additional Past Surgical History / Comment(s): egd,precancer esophagus Past Psychological History: No Psychological Hx Reported Smoking Status: Current every day smoker Past Alcohol Use History: Daily, Heavy Past Drug Use History: None Reported Medications and Allergies Home Medications Medication Instructions Recorded Confirmed Type Acetaminophen [Tylenol 8 Hour] 650 mg PO Q6H PRN 03/16/21 03/16/21 History Apixaban [Eliquis] 5 mg PO BID 03/16/21 03/16/21 History Omeprazole 10 mg PO DAILY 03/16/21 03/16/21 History diphenhydrAMINE [Benadryl] 25 mg PO DAILY PRN 03/16/21 03/16/21 History traZODone HCL 25 mg PO HS 03/16/21 03/16/21 History Allergies Allergy/AdvReac Type Severity Reaction Status Date / Time Sulfa (Sulfonamide Allergy Rash/Hives Verified 03/16/21 15:53 Antibiotics) sulfur dioxide Allergy Rash/Hives Verified 03/16/21 15:53 aspirin AdvReac Nausea & Verified 03/16/21 15:53 Vomiting Physical Exam Vitals: Vital Signs Temp Pulse Pulse Resp BP BP Pulse Ox 03/17/21 09:00 98.7 F 83 17 100/63 93 L 03/17/21 05:29 99.1 F 98 17 101/66 96 03/17/21 02:17 97.6 F 113 H 87/54 90 L 03/17/21 01:34 101 H 03/16/21 23:44 98.3 F 138 H 16 122/85 97 03/16/21 21:01 72 03/16/21 20:01 99.1 F 134 H 18 127/89 97 03/16/21 20:00 138 H 16 03/16/21 17:56 99.2 F 100 20 121/69 96 03/16/21 16:58 100 18 112/68 96 03/16/21 13:01 22 03/16/21 12:39 99.3 F 82 22 118/81 92 L Intake and Output 03/16/21 03/17/21 03/17/21 22:59 06:59 14:59 Intake Total 300 Balance 300 Intake: Oral 300 Other: # Voids 2 # Bowel Movements 1 3 Weight 49.442 kg General appearance: The patient is alert, oriented, appears in no acute distress. HET: Head is normocephalic and atraumatic. Conjunctiva pink. Sclera anicteric. Neck: Supple without lymphadenopathy. Trachea midline. Heart: S1 S2. Regular rate and rhythm. Lungs: Clear to auscultation. Abdomen: Soft, nontender, nondistended with bowel sounds. No guarding or rigidity. Skin: No rashes. No jaundice. Extremities: Normal skin color and turgor. No pedal edema. Neurological: No focal deficits. Alert and oriented x3. Results CBC & Chem 7: 03/17/21 06:11 03/17/21 06:11 Labs: Abnormal Lab Results - Last 24 Hours (Table) 03/16/21 03/16/21 03/16/21 Range/Units 13:29 13:29 13:29 WBC 2.7 L (3.8-10.6) k/uL RBC 2.65 L (3.80-5.40) m/uL Hgb 10.5 L (11.4-16.0) gm/dL Hct (37.2-46.3) % MCV 128.1 H (80.0-100.0) fL MCH 39.8 H (25.0-35.0) pg MCHC (32.0-37.0) g/dL Plt Count 144 L (150-450) k/uL Plt Count Comment Neutrophils # (1.80-7.70) X 10*3/uL Lymphocytes # (0.90-5.00) X 10*3/uL Lymphocytes # (Manual) 0.65 L (1.0-4.8) k/uL Eosinophils # (0.04-0.35) X 10*3/uL Macrocytosis Marked A ESR (0-20) mm/hr APTT 30.1 H (22.0-30.0) sec D-Dimer (<0.60) mg/L FEU Chloride 110 H (98-107) mmol/L Carbon Dioxide (20.0-27.5) mmol/L Anion Gap (10.00-18.00) mmol/L Calcium 6.5 L (8.4-10.2) mg/dL Magnesium 0.9 L* (1.6-2.3) mg/dL Ferritin (10.0-291.0) ng/mL AST 47 H (14-36) U/L Alkaline Phosphatase 136 H (38-126) U/L Lactate Dehydrogenase (313-618) U/L C-Reactive Protein (<1.0) mg/dL Total Protein 5.5 L (6.3-8.2) g/dL Albumin 2.8 L (3.5-5.0) g/dL Albumin/Globulin Ratio (1.60-3.17) g/dL Coronavirus (PCR) (Not Detectd) 03/16/21 03/16/21 03/16/21 Range/Units 13:29 16:20 21:15 WBC (3.8-10.6) k/uL RBC (3.80-5.40) m/uL Hgb (11.4-16.0) gm/dL Hct (37.2-46.3) % MCV (80.0-100.0) fL MCH (25.0-35.0) pg MCHC (32.0-37.0) g/dL Plt Count (150-450) k/uL Plt Count Comment Neutrophils # (1.80-7.70) X 10*3/uL Lymphocytes # (0.90-5.00) X 10*3/uL Lymphocytes # (Manual) (1.0-4.8) k/uL Eosinophils # (0.04-0.35) X 10*3/uL Macrocytosis ESR (0-20) mm/hr APTT (22.0-30.0) sec D-Dimer 0.95 H (<0.60) mg/L FEU Chloride (98-107) mmol/L Carbon Dioxide (20.0-27.5) mmol/L Anion Gap (10.00-18.00) mmol/L Calcium (8.4-10.2) mg/dL Magnesium (1.6-2.3) mg/dL Ferritin 665.0 H (10.0-291.0) ng/mL AST (14-36) U/L Alkaline Phosphatase (38-126) U/L Lactate Dehydrogenase 701 H (313-618) U/L C-Reactive Protein 15.8 H (<1.0) mg/dL Total Protein (6.3-8.2) g/dL Albumin (3.5-5.0) g/dL Albumin/Globulin Ratio (1.60-3.17) g/dL Coronavirus (PCR) Detected A (Not Detectd) 03/17/21 03/17/21 03/17/21 Range/Units 06:11 06:11 06:11 WBC 2.35 L (3.8-10.6) k/uL RBC 1.93 L (3.80-5.40) m/uL Hgb 7.6 L (11.4-16.0) gm/dL Hct 24.5 L (37.2-46.3) % MCV 126.9 H (80.0-100.0) fL MCH 39.4 H (25.0-35.0) pg MCHC 31.0 L (32.0-37.0) g/dL Plt Count 115 L (150-450) k/uL Plt Count Comment DECREASED A Neutrophils # 1.37 L (1.80-7.70) X 10*3/uL Lymphocytes # 0.72 L (0.90-5.00) X 10*3/uL Lymphocytes # (Manual) (1.0-4.8) k/uL Eosinophils # 0.02 L (0.04-0.35) X 10*3/uL Macrocytosis ESR 23 H (0-20) mm/hr APTT (22.0-30.0) sec D-Dimer (<0.60) mg/L FEU Chloride 113 H (98-107) mmol/L Carbon Dioxide 18.1 L (20.0-27.5) mmol/L Anion Gap 9.90 L (10.00-18.00) mmol/L Calcium 6.6 L (8.4-10.2) mg/dL Magnesium 3.1 H (1.6-2.3) mg/dL Ferritin (10.0-291.0) ng/mL AST (14-36) U/L Alkaline Phosphatase (38-126) U/L Lactate Dehydrogenase (313-618) U/L C-Reactive Protein (<1.0) mg/dL Total Protein 4.2 L (6.3-8.2) g/dL Albumin 2.4 L (3.5-5.0) g/dL Albumin/Globulin Ratio 1.33 L (1.60-3.17) g/dL Coronavirus (PCR) (Not Detectd) Assessment and Plan (1) Macrocytic anemia Narrative/Plan: This is a 71-year-old female who presented to the emergency room with her for generalized weakness. Apparently she recently moved here [place] and was diagnosed with COVID-19 infection approximately 2 weeks ago. She has a significant history of alcohol abuse for many years and drinks one fifth of vodka a day and also tobacco abuser. She has a history of DVT and is currently on Eliquis, last dose taken this morning. Gastroenterology was asked to see patient regarding anemia. Patient has labs consistent with macrocytic anemia, pancytopenia consistent WITH ALCOHOLIC CIRRHOSIS OF THE LIVER. PATIENT DENIES ANY ACTIVE BLEEDING, NO BLACK STOOL OR BLOOD IN HER STOOL CURRENTLY. STATES SHE HAS OCCASIONAL BLOOD IN HER STOOL MAYBE ONCE A MONTH BUT NOTHING RECENTLY. SHE HAS NO PREVIOUS HISTORY OF EGD OR COLONOSCOPY HOWEVER STATES THAT THERE WAS A CONCERN FOR AN AREA IN HER ESOPHAGUS THAT POSSIBLY COULD BE CANCEROUS. SHE STATES THAT SHE WAS TOLD WAS 8 MONTHS AGO AND WAS SUPPOSED TO HAVE AN UPPER ENDOSCOPY HOWEVER DID NOT FOLLOW-UP. Iron studies ordered we'll await results. Patient is with no active bleeding at this time and is coughing, COVID-19 positive and requiring supplemental oxygen so recommend deferring any endoscopic evaluation to outpatient in 10-14 days. Current Visit: Yes Status: Acute Code(s): D53.9 - NUTRITIONAL ANEMIA, UNSPEC IFIED SNOMED Code(s): 24538900 (2) Pancytopenia Current Visit: Yes Status: Acute Code(s): D61.818 - OTHER PANCYTOPENIA SNOMED Code(s): 741263545 (3) Alcohol abuse Current Visit: Yes Status: Acute Code(s): F10.10 - ALCOHOL ABUSE, UNCOMPLICATED SNOMED Code(s): 98337864 Plan: 1. Continue symptomatic and supportive care 2. Repeat CBC daily transfuse for hemoglobin less than 7 3. Alcohol abstinence 4. Iron studies pending 5. Hold Eliquis, re-evaluate tomorrow 6. At this time. Recommend to defer any endoscopic evaluation due to COVID-19 infection and symptoms as patient has no active bleeding will continue to workup for anemia recommend outpatient endoscopic evaluation in 10-14 days Thank you for this consultation, we will continue to follow. Dr. Megan Torrez I agree with the dictator's note, documented as a scribe by Jina Muñoz.
--- NOTE | 2021-03-17 16:11 | P.PN ---
Subjective Progress Note Date: 03/17/21 This is a 71-year-old female who was recently admitted with Covid 19 and multiple abnormalities including severe hypomagnesemia and is being closely monitored. Patient did have a drop in hemoglobin and GI was consulted and following and no active bleeding noted and recommend outpatient colonoscopy once recovered from Covid. Hemoglobin today is 7.6 and patient did have a bowel movement that was brown and formed with no blood noted in the stool. Orthopedics evaluated the patient and ordering an offloading shoe and will see the patient in the outpatient setting for this displaced fracture of the fifth metatarsal. Patient is having pain of the right foot. Magnesium was replaced and is 3.1. Labs: WBC is 2.35, hemoglobin is 7.6, platelets are 115, sodium is 141, potassium 3.5, BUN 12.5, creatinine 0.8, magnesium 3.1, Covid positive Review of systems: Constitutional: reports of fatigue, no reports of fever, or chills Cardiovascular: No reports of chest pain or palpitations Respiratory: No reports of shortness of breath, reports dry hacking cough GI: No reports of nausea, vomiting, or diarrhea, reported a normal bowel movement with no bleeding noted : No reports of dysuria or retention Neurovascular: No reports of weakness or numbness, reports right foot pain All medications have been reviewed Active Medications Hydrocodone Bitart/Acetaminophen (Hydrocodone/Apap 5-325mg 1 Each Tab) 1 each PO Q6HR PRN PRN Reason: Pain Apixaban (Apixaban 5 Mg Tab) 5 mg PO BID [facility]; Protocol Last Admin: 03/17/21 08:06 Dose: 5 mg Documented by: Cholecalciferol (Cholecalciferol 25 Mcg (1000 Iu) Tablet) 25 mcg PO DAILY [facility] Last Admin: 03/17/21 08:05 Dose: 25 mcg Documented by: Guaifenesin (Guaifenesin Syrup 100mg/5ml 200 Mg/10 Ml Cup) 200 mg PO Q6HR PRN PRN Reason: Cough Last Admin: 03/17/21 12:17 Dose: 200 mg Documented by: Thiamine HCl 100 mg/ Folic Acid 1 mg/ Potassium Chloride/Sodium Chloride 1,001.2 mls @ 50 mls/hr IV .Q20H2M [facility] Last Admin: 03/16/21 22:06 Dose: 50 mls/hr Documented by: Lorazepam (Lorazepam 2 Mg/Ml Inj) 1 mg IV Q2HR PRN PRN Reason: CIWA 8 or 9 Last Admin: 03/16/21 22:54 Dose: 1 mg Documented by: Lorazepam (Lorazepam 2 Mg/Ml Inj) 1 mg IV Q1HR PRN PRN Reason: CIWA 10 to 15 Lorazepam (Lorazepam 2 Mg/Ml Inj) 2 mg IV Q10M PRN PRN Reason: CIWA 16 or higher Stop: 03/18/21 19:22 Metoprolol Succinate (Metoprolol Succinate (Er) 25 Mg Tab.Er.24h) 25 mg PO DAILY [facility] Last Admin: 03/17/21 09:07 Dose: 25 mg Documented by: Miscellaneous Information (Magnesium Replacement Protocol 1 Each Misc) 1 each MISCELLANE DAILY PRN; Protocol PRN Reason: Per Protocol Miscellaneous Information (Potassium Replacement Protocol 1 Each Misc) 1 each MISCELLANE DAILY PRN; Protocol PRN Reason: Per Protocol Naloxone HCl (Naloxone 0.4 Mg/Ml 1 Ml Vial) 0.2 mg IV Q2M PRN PRN Reason: Opioid Reversal Pantoprazole Sodium (Pantoprazole 40 Mg Tablet) 40 mg PO DAILY@0730 [facility] Last Admin: 03/17/21 08:05 Dose: 40 mg Documented by: Trazodone HCl (Trazodone Hcl 50 Mg Tab) 25 mg PO HS [facility] Last Admin: 03/16/21 21:23 Dose: 25 mg Documented by: Zinc Sulfate (Zinc Sulfate 220 Mg Cap) 220 mg PO DAILY [facility] Last Admin: 03/17/21 08:05 Dose: 220 mg Documented by: Physical exam: Gen: This is a 71-year-old female awake, alert and oriented 3, well-developed, well-nourished. Temp is 98.7F, pulse is 83, respirations are 17, blood pressure is 100/63, oxygen saturation is 93% on room air HEENT: Head is atraumatic, normocephalic. Pupils equal, round. Sclerae is anicteric. NECK: Supple. No JVD. No lymphadenopathy. No thyromegaly. LUNGS: Diminished breath sounds bilaterally with no wheezing and some scattered rhonchi noted. No intercostal retractions. HEART: S1, S2 are muffled ABDOMEN: Soft. non Distended. Bowel sounds are present. No masses. No tenderness. EXTREMITIES: No pedal edema. No calf tenderness. NEUROLOGICAL: Patient is awake, alert and oriented x3. Cranial nerves 2 through 12 are grossly intact. Assessment: Change in mental status, acute metabolic encephalopathy, possibly early delirium tremens History of EtOH Fracture of the fifth metatarsal on the right Severe gait dysfunction Pancytopenia, possibly secondary to EtOH acute COVID-19 infection severe hypomagnesemia Severe hypocalcemia increased AST with mild alcoholic hepatitis hypoalbuminemia with possibly severe protein calorie malnutrition with a body mass index of 17.6 Rule out chronic liver disease History of hypertension history of deep vein thrombosis of the left leg history of possible Hansen's esophagitis History of nicotine dependence history of EtOH Full code Plan: Recommend to continue with current medications and management. Patient is maintained on eliquis which is currently being held as patient was having possible bleeding per rectum although had a bowel movement today and reports formed brown stool with no bleeding noted. GI evaluated the patient recommending outpatient follow-up and colonoscopy in 10 days to 2 weeks as patient is also Covid positive and would like the patient to recover prior to any surgical or endoscopic interventions. Orthopedics also consulted as patient has a metatarsal fracture of the right fifth digit and recommending an offloading boot and weightbearing recommendations. Orthopedics will evaluate as needed in the outpatient setting. Repeat a.m. labs and continue to monitor closely. Further recommendations to follow based on the clinical course of the patient. Due to multiple complex medical issues, prognosis is guarded. Possible discharge in 24 hours. Objective - Vital Signs Vital signs: Vital Signs Temp 98.2 F 03/17/21 13:44 Pulse 105 H 03/17/21 13:44 Resp 17 03/17/21 13:44 BP 103/69 03/17/21 13:44 Pulse Ox 94 L 03/17/21 13:44 Intake & Output 03/16/21 03/17/21 03/17/21 18:59 06:59 18:59 Intake Total 300 Balance 300 Weight 49.442 kg 49.442 kg 49.442 kg Intake: Oral 300 Other: # Voids 2 # Bowel Movements 1 3 - Labs CBC & Chem 7: 03/17/21 06:11 03/17/21 06:11 Labs: Abnormal Lab Results - Last 24 Hours (Table) 03/16/21 03/16/21 03/16/21 Range/Units 13:29 13:29 16:20 WBC (4.50-10.00) X 10*3/uL RBC (4.10-5.20) X 10*6/uL Hgb (12.0-15.0) g/dL Hct (37.2-46.3) % MCV (80.0-97.0) fL MCH (27.0-32.0) pg MCHC (32.0-37.0) g/dL Plt Count (140-440) X 10*3/uL Plt Count Comment Neutrophils # (1.80-7.70) X 10*3/uL Lymphocytes # (0.90-5.00) X 10*3/uL Lymphocytes # (Manual) 0.65 L (1.0-4.8) k/uL Eosinophils # (0.04-0.35) X 10*3/uL ESR (0-20) mm/hr D-Dimer (<0.60) mg/L FEU Chloride (96-109) mmol/L Carbon Dioxide (20.0-27.5) mmol/L Anion Gap (10.00-18.00) mmol/L Calcium (8.7-10.3) mg/dL Magnesium (1.5-2.4) mg/dL Ferritin 665.0 H (10.0-291.0) ng/mL Lactate Dehydrogenase 701 H (313-618) U/L C-Reactive Protein 15.8 H (<1.0) mg/dL Total Protein (6.2-8.2) g/dL Albumin (3.8-4.9) g/dL Albumin/Globulin Ratio (1.60-3.17) g/dL Coronavirus (PCR) Detected A (Not Detectd) 03/16/21 03/17/21 03/17/21 Range/Units 21:15 06:11 06:11 WBC 2.35 L (4.50-10.00) X 10*3/uL RBC 1.93 L (4.10-5.20) X 10*6/uL Hgb 7.6 L (12.0-15.0) g/dL Hct 24.5 L (37.2-46.3) % MCV 126.9 H (80.0-97.0) fL MCH 39.4 H (27.0-32.0) pg MCHC 31.0 L (32.0-37.0) g/dL Plt Count 115 L (140-440) X 10*3/uL Plt Count Comment DECREASED A Neutrophils # 1.37 L (1.80-7.70) X 10*3/uL Lymphocytes # 0.72 L (0.90-5.00) X 10*3/uL Lymphocytes # (Manual) (1.0-4.8) k/uL Eosinophils # 0.02 L (0.04-0.35) X 10*3/uL ESR 23 H (0-20) mm/hr D-Dimer 0.95 H (<0.60) mg/L FEU Chloride (96-109) mmol/L Carbon Dioxide (20.0-27.5) mmol/L Anion Gap (10.00-18.00) mmol/L Calcium (8.7-10.3) mg/dL Magnesium (1.5-2.4) mg/dL Ferritin (10.0-291.0) ng/mL Lactate Dehydrogenase (313-618) U/L C-Reactive Protein (<1.0) mg/dL Total Protein (6.2-8.2) g/dL Albumin (3.8-4.9) g/dL Albumin/Globulin Ratio (1.60-3.17) g/dL Coronavirus (PCR) (Not Detectd) 03/17/21 Range/Units 06:11 WBC (4.50-10.00) X 10*3/uL RBC (4.10-5.20) X 10*6/uL Hgb (12.0-15.0) g/dL Hct (37.2-46.3) % MCV (80.0-97.0) fL MCH (27.0-32.0) pg MCHC (32.0-37.0) g/dL Plt Count (140-440) X 10*3/uL Plt Count Comment Neutrophils # (1.80-7.70) X 10*3/uL Lymphocytes # (0.90-5.00) X 10*3/uL Lymphocytes # (Manual) (1.0-4.8) k/uL Eosinophils # (0.04-0.35) X 10*3/uL ESR (0-20) mm/hr D-Dimer (<0.60) mg/L FEU Chloride 113 H (96-109) mmol/L Carbon Dioxide 18.1 L (20.0-27.5) mmol/L Anion Gap 9.90 L (10.00-18.00) mmol/L Calcium 6.6 L (8.7-10.3) mg/dL Magnesium 3.1 H (1.5-2.4) mg/dL Ferritin (10.0-291.0) ng/mL Lactate Dehydrogenase (313-618) U/L C-Reactive Protein (<1.0) mg/dL Total Protein 4.2 L (6.2-8.2) g/dL Albumin 2.4 L (3.8-4.9) g/dL Albumin/Globulin Ratio 1.33 L (1.60-3.17) g/dL Coronavirus (PCR) (Not Detectd)
[2021-03-17 17:19] LABS: % Iron Saturation 8.83 (12.00-45.00)
[2021-03-17] MEDS: 0.9% NACL WITH KCL 20 MEQ/L 1,000 ML with THIAMINE 100 MG, FOLIC ACID 1 MG IV SCH ×6 (17:34→19:37)
--- NOTE | 2021-03-17 18:00 | ECHOF ---
Referral Reason:LV function MEASUREMENTS -------- HEIGHT: 165.1 cm WEIGHT: 45.4 kg BP: RVIDd: 2.6 cm (< 3.3) IVSd: 1.0 cm (0.6 - 1.1) LVIDd: 4.0 cm (3.9 - 5.3) LVPWd: 1.2 cm (0.6 - 1.1) IVSs: 1.2 cm LVIDs: 3.4 cm LVPWs: 1.2 cm LA Diam: 2.8 cm (2.7 - 3.8) Ao Diam: 2.6 cm (2.0 - 3.7) AV Cusp: 1.6 cm (1.5 - 2.6) LA Diam: 3.4 cm (2.7 - 3.8) MV EXCURSION: 11.482 mm (> 18.000) MV EF SLOPE: 73 mm/s (70 - 150) EPSS: 0.2 cm FINDINGS -------- Undetermined rhythm. Pt positive for Covid: Limited study for Lv function. LV size, wall thickness and systolic function are normal, with an EF greater than 55%. The left ann tricular size is normal. The right ventricle is normal in size. The left atrial size is normal. The right atrial size is normal. CONCLUSIONS -------- 1. Pt positive for Covid: Limited study for Lv function. 2. LV size, wall thickness and systolic function are normal, with an EF greater than 55%. 3. The left ventricular size is normal. 4. The right ventricle is normal in size. 5. The left atrial size is normal. 6. The right atrial size is normal. [employer] HAND: Mercy Styles RDCS
[2021-03-17] MEDS: HYDROcodone/APAP 5-325MG 1 EACH TAB PO PRN (19:36)
[2021-03-17] MEDS: HEPARIN SODIUM,PORCINE/PF 5,000 UNIT/0.5 ML SYRINGE SQ SCH (20:41)
[2021-03-17] MEDS: traZODone HCL 50 MG TAB PO SCH (20:47)
[2021-03-17] MEDS: LORazepam 2 MG/ML INJ IV PRN (22:30)
[2021-03-18] MEDS ORDERED: SODIUM FERRIC GLUCONAT-SUCROSE 125 MG in SODIUM CHLORIDE 0.9% 100 ML IVPB ONE (09:26)
[2021-03-18] MEDS: CHOLECALCIFEROL 25 MCG (1000 IU) TABLET PO SCH (09:42)
[2021-03-18] MEDS: HEPARIN SODIUM,PORCINE/PF 5,000 UNIT/0.5 ML SYRINGE SQ SCH (09:42)
[2021-03-18] MEDS: METOPROLOL SUCCINATE (ER) 25 MG TAB.ER.24H PO SCH (09:42)
[2021-03-18] MEDS: ZINC SULFATE 220 MG CAP PO SCH (09:42)
[2021-03-18] MEDS: PANTOPRAZOLE 40 MG TABLET PO SCH (09:42)
[2021-03-18] MEDS: HYDROcodone/APAP 5-325MG 1 EACH TAB PO PRN ×2 (09:49→15:12)
[2021-03-18] MEDS: guaiFENesin SYRUP 100MG/5ML 200 MG/10 ML CUP PO PRN (09:51)
[2021-03-18 11:08] LABS: Basophils % (A) 1 %; Eosinophils # (A) 0.1 k/uL (0-0.7); Eosinophils % (A) 2 %; HCT 32.7 % (34.0-46.0); Hypochromasia Marked; Lymphocytes # (A) 0.8 k/uL (1.0-4.8); Lymphocytes % (A) 28 %; MCH 40.9 pg (25.0-35.0); MCHC 30.7 g/dL (31.0-37.0); Macrocytosis Marked; Mean Platelet Volume 9.4; Monocytes # (A) 0.2 k/uL (0-1.0); Monocytes % (A) 8 %; Neutrophils # (A) 1.6 k/uL (1.3-7.7); Neutrophils % (A) 58 %; Platelet Count 158 k/uL (150-450); RBC 2.45 m/uL (3.80-5.40); RDW 13.9 % (11.5-15.5); WBC 2.8 k/uL (3.8-10.6)
--- NOTE | 2021-03-18 11:15 | P.PN ---
Subjective Progress Note Date: 03/18/21 CHIEF COMPLAINT: Atrial fibrillation HISTORY OF PRESENT ILLNESS: This is a 71-year-old female with a past medical history significant for hypertension, DVT, alcohol abuse, nicotine dependence. Patient does not follow with a earth science faculty member. We have been asked to see the patient in consultation for tachycardia and possible atrial fibrillation. Patient is admitted to the hospital secondary to Covid. Patient is on room air with oxygen saturations greater than 92%. Blood pressure 100/63. Telemetry reveals heart rate between 80 and 120. Patient is maintaining sinus mechanism with frequent PACs. No evidence of atrial fibrillation visualized. DIAGNOSTICS: EKG reveals sinus tachycardia with PACs Chest xray COPD with bilateral interstitial and alveolar infiltrates correlate for pneumonia versus CHF Laboratory data: WBC 2.35. Hemoglobin 7.6. Platelet count 115. D-dimer 0.95. Sodium 141. Potassium 3.5. BUN 12.5. Creatinine 0.8. Current home cardiac medications include Eliquis 5 mg twice a day 03/18/2021 Patient remains on the MedSurg unit. Telemetry reviewed revealing sinus mechanism with PACs. No evidence of atrial fibrillation noted. The patient's Eliquis has been placed on hold secondary to anemia. GI has been consulted for evaluation and recommend holding Eliquis. No plans for endoscopy evaluation due to Covid. Echocardiogram completed revealing ejection fraction 55% PHYSICAL EXAM: Thorough physical exam not completed secondary to limited evaluation/examination due to Covid19 ASSESSMENT: Covid 19 Sinus tachycardia with PACS, no atrial fibrillation visualized Pancytopenia History of DVT Alcohol abuse Nicotine dependence Hypomagnesemia PLAN: Continue current cardiac medications No further inpatient recommendations from a cardiac standpoint We will sign off. Please reconsult if needed. Nurse practitioner note has been reviewed by physician. Signing provider agrees with the documented findings, assessment, and plan of care. Objective - Vital Signs Vital signs: Vital Signs Temp 97.2 F L 03/18/21 09:09 Pulse 81 03/18/21 09:09 Resp 16 03/18/21 09:09 BP 120/80 03/18/21 09:09 Pulse Ox 97 03/18/21 09:09 Intake & Output 03/17/21 03/18/21 03/18/21 18:59 06:59 18:59 Intake Total 800 400 Output Total 40 Balance 800 360 Weight 49.442 kg Intake: Intake, IV Titration 400 400 Amount 0.9% NaCl with KCl 20 Meq 400 400 /l 1,000 ml @ 50 mls/hr IV .Q20H2M GWYN with Thiamine 100 mg with Folic Acid 1 mg Rx#: [id number] Oral 400 Output: Urine 40 Other: Voiding Method External Catheter Incontinent # Voids 2 1 # Bowel Movements 3 - Labs CBC & Chem 7: 03/17/21 06:11 03/17/21 06:11 Labs: Abnormal Lab Results - Last 24 Hours (Table) 03/17/21 Range/Units 06:11 Iron 10 L (50-170) ug/dL TIBC 111 L (228-460) ug/dL % Saturation 8.83 L (12.00-45.00) Transferrin 79.6 L (204.0-354.0) mg/dL Ferritin 483.0 H (10.0-291.0) ng/mL
[2021-03-18 11:28] LABS: ALT 11 U/L (4-34); AST 35 U/L (14-36); African American GFR (CKD) 84 (>60 ml/min/1.73 sqM); Albumin 2.3 g/dL (3.5-5.0); Albumin/Globulin Ratio 0.9; Alkaline Phosphatase 117 U/L (38-126); Anion Gap 2 mmol/L; Blood Urea Nitrogen 10 mg/dL (7-17); Calcium 7.1 mg/dL (8.4-10.2); Carbon Dioxide 18 mmol/L (22-30); Chloride 117 mmol/L (98-107); Globulin 2.6 g/dL; Glucose 84 mg/dL (74-99); MCV 133.3 fL (80.0-100.0); Magnesium 2.3 mg/dL (1.6-2.3); Non-African American GFR(CKD) 73 (>60 ml/min/1.73 sqM); Potassium 4.2 mmol/L (3.5-5.1); Sodium 137 mmol/L (137-145); Total Bilirubin 0.5 mg/dL (0.2-1.3); Total Protein 4.9 g/dL (6.3-8.2)
--- NOTE | 2021-03-18 14:25 | P.PN ---
Subjective Progress Note Date: 03/18/21 Principal diagnosis: Anemia This is 71-year-old female who presented to the emergency department yesterday with her for generalized weakness. The patient has a past medical history including hypertension, history of DVT and alcohol abuse. Apparently the patient drinks a fifth of bed could daily and has a drink for several years. She also is a smoker of one pack per day for greater than 20-30 years who states she recently quit 2 weeks ago. The patient is somewhat of a poor historian and initially stated that she had an EGD done in [place] however now states she did not have an EGD done but was told that she had something on her esophagus and she was supposed to have an EGD done. She states that was about 8 months ago but she had never followed up as she moved to [place] about 2 weeks ago. Patient states that she tested positive for Kovic 2 weeks ago in [place] and she had again PCR is positive. She denies any abdominal pain, nausea, vomiting, black stool but states that she occasionally has a little bit of blood in her stool perhaps once a month. She denies any previous history of colonoscopy. She has not had any recent bleeding she states. She is on Eliquis for hsitory of DVT. On admission she had a hemoglobin of 10.5 with a repeat today of 7.6. She has a macrocytic anemia, pancytopenia CONSISTENT WITH ALCOHOLIC CIRRHOSIS OF THE LIVER. IRON STUDIES WERE ORDERED AND PENDING. TOTAL BILIRUBIN 0.3 AST 30 ALT 11 ALKALINE PHOSPHATASE 116. 03/18/2021 Patient is seen and examined as a follow-up. Overall no acute changes through the night. She denies any blood in her stool or rectal bleeding. Denies any abdominal pain, nausea, or vomiting. Repeat hemoglobin 10.0. She remains in a droplet precautions for COVID-19 infection. Continues with cough. Objective - Vital Signs Vital signs: Vital Signs Temp 97.6 F 03/18/21 06:15 Pulse 75 03/18/21 06:15 Resp 15 03/17/21 21:58 BP 96/53 03/18/21 06:15 Pulse Ox 91 L 03/18/21 06:15 Intake & Output 03/17/21 03/18/21 03/18/21 18:59 06:59 18:59 Intake Total 800 400 Output Total 40 Balance 800 360 Weight 49.442 kg Intake: Intake, IV Titration 400 400 Amount 0.9% NaCl with KCl 20 Meq 400 400 /l 1,000 ml @ 50 mls/hr IV .Q20H2M GWYN with Thiamine 100 mg with Folic Acid 1 mg Rx#: [id number] Oral 400 Output: Urine 40 Other: Voiding Method External Catheter # Voids 2 1 # Bowel Movements 3 - Exam General appearance: The patient is alert, oriented, appears in no acute distress. HET: Head is normocephalic and atraumatic. Conjunctiva pink. Sclera anicteric. Neck: Supple without lymphadenopathy. Abdomen: Soft, nontender, nondistended with bowel sounds. No guarding or rigidity. Extremities: Normal skin color and turgor. No pedal edema Skin: No rashes, no jaundice Neurological: No focal deficits. Alert and oriented -3. - Labs CBC & Chem 7: 03/18/21 10:20 03/18/21 10:20 Labs: Abnormal Lab Results - Last 24 Hours (Table) 03/17/21 03/17/21 03/17/21 Range/Units 06:11 06:11 06:11 Plt Count Comment DECREASED A Neutrophils # 1.37 L (1.80-7.70) X 10*3/uL Lymphocytes # 0.72 L (0.90-5.00) X 10*3/uL Eosinophils # 0.02 L (0.04-0.35) X 10*3/uL Chloride 113 H (96-109) mmol/L Carbon Dioxide 18.1 L (20.0-27.5) mmol/L Anion Gap 9.90 L (10.00-18.00) mmol/L Calcium 6.6 L (8.7-10.3) mg/dL Magnesium 3.1 H (1.5-2.4) mg/dL Iron 10 L (50-170) ug/dL TIBC 111 L (228-460) ug/dL % Saturation 8.83 L (12.00-45.00) Transferrin 79.6 L (204.0-354.0) mg/dL Ferritin 483.0 H (10.0-291.0) ng/mL Total Protein 4.2 L (6.2-8.2) g/dL Albumin 2.4 L (3.8-4.9) g/dL Albumin/Globulin Ratio 1.33 L (1.60-3.17) g/dL Assessment and Plan (1) Macrocytic anemia Narrative/Plan: This is a 71-year-old female who presented to the emergency room with her for generalized weakness. Apparently she recently moved here from [place] and was diagnosed with COVID-19 infection approximately 2 weeks ago. She has a significant history of alcohol abuse for many years and drinks one fifth of vodka a day and also tobacco abuser. She has a history of DVT and is currently on Eliquis, last dose taken this morning. Gastroenterology was asked to see patient regarding anemia. Patient has labs consistent with macrocytic anemia, pancytopenia consistent WITH ALCOHOLIC CIRRHOSIS OF THE LIVER. PATIENT DENIES ANY ACTIVE BLEEDING, NO BLACK STOOL OR BLOOD IN HER STOOL CURRENTLY. STATES SHE HAS OCCASIONAL BLOOD IN HER STOOL MAYBE ONCE A MONTH BUT NOTHING RECENTLY. SHE HAS NO PREVIOUS HISTORY OF EGD OR COLONOSCOPY HOWEVER STATES THAT THERE WAS A CONCERN FOR AN AREA IN HER ESOPHAGUS THAT POSSIBLY COULD BE CANCER OUS. SHE STATES THAT SHE WAS TOLD WAS 8 MONTHS AGO AND WAS SUPPOSED TO HAVE AN UPPER ENDOSCOPY HOWEVER DID NOT FOLLOW-UP. Iron studies ordered we'll await results. Patient is with no active bleeding at this time and is coughing, COVID-19 positive and requiring supplemental oxygen so recommend deferring any endoscopic evaluation to outpatient in 10-14 days. Current Visit: Yes Status: Acute Code(s): D53.9 - NUTRITIONAL ANEMIA, UNSPECIFIED SNOMED Code(s): 30174044 (2) Pancytopenia Narrative/Plan: Pancytopenia secondary to alcoholic cirrhosis of the liver Current Visit: Yes Status: Acute Code(s): D61.818 - OTHER PANCYTOPENIA SNOMED Code(s): 252226029 (3) Alcohol abuse Current Visit: Yes Status: Acute Code(s): F10.10 - ALCOHOL ABUSE, UNCOM PLICATED SNOMED Code(s): 02878783 Plan: 1. Continue symptomatic and supportive care 2 vertical for sushi. Alcohol abstinence 3. Iron studies reviewed. IV iron 1 ordered 4. May resume Eliquis 5. At this time. Recommend to defer any endoscopic evaluation due to COVID-19 infection and symptoms as patient has no active bleeding will continue to workup for anemia recommend outpatient endoscopic evaluation in 10-14 days Thank you for allowing us to participate in the care of the patient, the GI service will sign off, gastroenterology will not be available at the hospital this weekend and through next week. If further evaluation by gastroenterology is required the patient will need transfer as per the primary team's discretion. Dr. Megan Torrez I agree with the dictator's note, documented as a scribe by Jina Muñoz.
[2021-03-18] MEDS ORDERED: LORazepam 1 MG TAB PO STA (15:16)
[2021-03-18 15:17] VITALS: BP 97/65; PULSE 84; RESP 22; TEMP 97.4
--- NOTE | 2021-03-20 10:00 | P.DS ---
Providers Date of admission: 03/16/21 15:18 Expected date of discharge: 03/18/21 Attending physician: Tristan Vinson Consults: 03/17/21 10:30 Consult Physician Routine Consulting Provider: Page Torrez Consult Reason/Comments: anemia/bloody stool Do you want consulting provider notified?: Yes 03/17/21 10:36 Consult Physician Routine Consulting Provider: Anel Kay Consult Reason/Comments: RT 5th metatarsal fx/activity recommendations Do you want consulting provider notified?: Yes Primary care physician: Stated None Hospital Course: Final diagnosis Change in mental status, acute metabolic encephalopathy, possibly early delirium tremens History of EtOH Fracture of the fifth metatarsal on the right Severe gait dysfunction Pancytopenia, possibly secondary to EtOH acute COVID-19 infection severe hypomagnesemia Severe hypocalcemia increased AST with mild alcoholic hepatitis hypoalbuminemia with possibly severe protein calorie malnutrition with a body mass index of 17.6 Rule out chronic liver disease History of hypertension history of deep vein thrombosis of the left leg history of possible Hansen's esophagitis History of nicotine dependence history of EtOH Full code Discharge disposition Patient is being discharged in a stable condition with guarded prognosis to home. Patient will follow-up with Dr. Chaudhry in the outpatient setting upon discharge. Patient is to follow-up with orthopedics and GI in the outpatient setting. Patient to resume eliquis. Total time taken is greater than 35 minutes. Hospital course This is a 71-year-old female who was recently admitted with COVID-19 with severe hypomagnesemia and was being closely monitored. Patient was also found to have a drop in hemoglobin and GI consulted and recommending outpatient follow-up for colonoscopy as there is no active bleeding noted. Hemoglobin is stable and recommend close monitoring in the outpatient setting with primary care provider. Orthopedics also evaluated the patient for right fifth metatarsal displaced fracture and will continue with offloading boot and follow-up outpatient once recovered from COVID-19. Patient continued to be weak require assistance although refusing rehab and family does not want her to go to [facility] and will be taking care of her. Patient reluctant about Homecare although family is agreeable and this is being arranged. Patient encouraged to avoid alcohol intake. Currently no reports of chest pain, shortness of breath, or palpitations. Patient is afebrile. No reports of nausea or vomiting and patient is tolerating diet. Patient will be discharged home today. Guarded prognosis. On exam vital signs are stable. Cardio S1, S2 are muffled. Respiratory system shows diminished breath sounds at the bases with no wheezing or rhonchi noted. Abdomen is soft and nontender. Nervous system shows no focal deficits. Please refer to medication reconciliation sheet for a list of medications. Patient Condition at Discharge: Stable Plan - Discharge Summary Discharge Rx Participant: No New Discharge Prescriptions: New HYDROcodone/APAP 5-325MG [[place] 5-325] 1 each PO Q6HR PRN #6 tab PRN Reason: Pain Zinc Sulfate [Orazinc] 220 mg PO DAILY 30 Days #30 cap Thiamine [Vitamin B-1] 100 mg PO BID 30 Days #60 tablet Cholecalciferol [Vitamin D3 (25 Mcg = 1000 Iu)] 25 mcg PO DAILY 30 Days #30 tablet LORazepam [Ativan] 1 mg PO BID 3 Days #6 tab Folic Acid 1 mg PO DAILY #30 tablet guaiFENesin SYRUP 100MG/5ML [Robitussin] 200 mg PO Q6HR PRN #120 ml PRN Reason: Cough Metoprolol Succinate (ER) [Toprol XL] 25 mg PO DAILY 30 Days #30 tab Continue Apixaban [Eliquis] 5 mg PO BID diphenhydrAMINE [Benadryl] 25 mg PO DAILY PRN PRN Reason: Allergy Symptoms Omeprazole 10 mg PO DAILY traZODone HCL 25 mg PO HS Acetaminophen [Tylenol 8 Hour] 650 mg PO Q6H PRN PRN Reason: Pain Discharge Medication List Acetaminophen [Tylenol 8 Hour] 650 mg PO Q6H PRN 03/16/21 [History] Apixaban [Eliquis] 5 mg PO BID 03/16/21 [History] Omeprazole 10 mg PO DAILY 03/16/21 [History] diphenhydrAMINE [Benadryl] 25 mg PO DAILY PRN 03/16/21 [History] traZODone HCL 25 mg PO HS 03/16/21 [History] Cholecalciferol [Vitamin D3 (25 Mcg = 1000 Iu)] 25 mcg PO DAILY 30 Days #30 t ablet 03/18/21 [Rx] Folic Acid 1 mg PO DAILY #30 tablet 03/18/21 [Rx] HYDROcodone/APAP 5-325MG [[place] 5-325] 1 each PO Q6HR PRN #6 tab 03/18/21 [Rx] LORazepam [Ativan] 1 mg PO BID 3 Days #6 tab 03/18/21 [Rx] Metoprolol Succinate (ER) [Toprol XL] 25 mg PO DAILY 30 Days #30 tab 03/18/21 [Rx] Thiamine [Vitamin B-1] 100 mg PO BID 30 Days #60 tablet 03/18/21 [Rx] Zinc Sulfate [Orazinc] 220 mg PO DAILY 30 Days #30 cap 03/18/21 [Rx] guaiFENesin SYRUP 100MG/5ML [Robitussin] 200 mg PO Q6HR PRN #120 ml 03/18/21 [Rx] Follow up Appointment(s)/Referral(s): Reginald Chaudhry MD [REFERRING] - 3 Days Anel Kay DO [Doctor of Osteopathic Medicine] - 2 Weeks Page Torrez MD [STAFF PHYSICIAN] - 1 Week Patient Instructions/Handouts: Coronavirus Disease 2019 (COVID-19) Activity/Diet/Wound Care/Special Instructions: *Call [facility] for w/c van transport home: [phone]. Weightbearing as tolerated with post op shoe to right foot Follow up at [facility] in 2 weeks, . Activity Limited until follow-up follow up with primary care provider on discharge Follow-up with orthopedics outpatient Follow-up with GI outpatient Continue heart healthy diet Avoid alcohol use Discharge Disposition: HOME WITH HOME HEALTH SERVICES
== END 2021-03-18 17:27 | disposition home health service (06) | DRG 177 ==
LOC: EC 12:34 → 4SSUR 15:18
PROVIDERS: ADMIT Hospitalist; ATTEND Hospitalist
PROC: 3E0F7SF Introduction of Other Gas into Respiratory Tract, Via Natural or Artificial Opening (ICD-10-PCS; principal; 2021-03-16)
PROC: 8E0ZXY6 Isolation (ICD-10-PCS; 2021-03-16)
PROC: HZ2ZZZZ Detoxification Services for Substance Abuse Treatment (ICD-10-PCS; 2021-03-16)
DX: U07.1 COVID-19 (principal); G93.41 Metabolic encephalopathy; E43 Unspecified severe protein-calorie malnutrition; D61.818 Other pancytopenia; Z68.1 Body mass index [BMI] 19.9 or less, adult; F10.131 Alcohol abuse with withdrawal delirium; I10 Essential (primary) hypertension; I49.3 Ventricular premature depolarization; S92.351A Displaced fracture of fifth metatarsal bone, right foot, initial encounter for closed fracture; K22.70 Barrett's esophagus without dysplasia; F17.210 Nicotine dependence, cigarettes, uncomplicated; D53.9 Nutritional anemia, unspecified; I48.91 Unspecified atrial fibrillation; K70.30 Alcoholic cirrhosis of liver without ascites; R26.9 Unspecified abnormalities of gait and mobility; E88.09 Other disorders of plasma-protein metabolism, not elsewhere classified; E83.51 Hypocalcemia; K70.10 Alcoholic hepatitis without ascites; Z88.6 Allergy status to analgesic agent; Z88.2 Allergy status to sulfonamides; M85.88 Other specified disorders of bone density and structure, other site; E83.42 Hypomagnesemia; R00.0 Tachycardia, unspecified; M19.079 Primary osteoarthritis, unspecified ankle and foot; Z20.822 Contact with and (suspected) exposure to COVID-19; Z86.718 Personal history of other venous thrombosis and embolism; Z79.01 Long term (current) use of anticoagulants
CPT/HCPCS: 36415; 71046; 80053; 82728; 83540; 83550; 83615; 83735; 84484; 85025; 85379; 85610; 85652; 85730; 86140; 87635; 93005; 93308; 96361; 96365; 99285

== ENCOUNTER 2021-05-17 16:08 | Inpatient (IN) | payer MEDICARE, OTHER ==
[2021-05-17] MEDS ORDERED: THIAMINE 100 MG/ML 2 ML VIAL IVP STA (16:18)
[2021-05-17] MEDS ORDERED: SODIUM CHLORIDE 0.9% 500 ML 500 ML IV ONE (16:18)
--- NOTE | 2021-05-17 16:25 | ED ---
General Adult HPI - General Stated complaint: stroke Time Seen by Provider: 05/17/21 16:18 Source: patient, EMS, RN notes reviewed, old records reviewed Limitations: altered mental status - History of Present Illness Initial comments: 71-year-old female history of EtOH abuse presenting with alteration in mental status. History is obtained exclusively from the paramedics who transported this patient. She was brought from home. Last alcoholic beverage was yesterday evening. She has had some mental status changes over the past several days but apparently was somewhat lucid yesterday evening before bed. The exact timing of this changes not known. EMS report stable vitals and non-localizing features. She is alert but not responding appropriately to questions at all. - Related Data Home Medications Medication Instructions Recorded Confirmed Apixaban [Eliquis] 5 mg PO BID 03/16/21 05/17/21 HYDROcodone/APAP 5-325MG [[place] 1 tab PO Q6HR PRN 05/17/21 05/17/21 5-325] LORazepam [Ativan] 1 mg PO BID PRN 05/17/21 05/17/21 Magnesium 250 mg PO DAILY 05/17/21 05/17/21 Ondansetron Odt [Zofran Odt] 4 mg PO Q8HR PRN 05/17/21 05/17/21 Pantoprazole [Protonix] 40 mg PO DAILY 05/17/21 05/17/21 Previous Rx's Medication Instructions Recorded Folic Acid 1 mg PO DAILY #30 tablet 03/18/21 Metoprolol Succinate (ER) [Toprol 25 mg PO DAILY 30 Days #30 tab 03/18/21 XL] Allergies Allergy/AdvReac Type Severity Reaction Status Date / Time Sulfa (Sulfonamide Allergy Rash/Hives Verified 05/17/21 18:42 Antibiotics) sulfur dioxide Allergy Rash/Hives Verified 05/17/21 18:42 acetaminophen [From Tylenol] AdvReac STOMACH Verified 05/17/21 18:42 PAINS aspirin AdvReac STOMACH Verified 05/17/21 18:42 PAINS Review of Systems ROS Statement: Those systems with pertinent positive or pertinent negative responses have been documented in the HPI. ROS Other: All systems not noted in ROS Statement are negative. Past Medical History Past Medical History: Hypertension Additional Past Medical History / Comment(s): dvt left leg History of Any Multi-Drug Resistant Organisms: None Reported Additional Past Surgical History / Comment(s): egd,precancer esophagus Past Psychological History: No Psychological Hx Reported Smoking Status: Current every day smoker Past Alcohol Use History: Daily, Heavy Past Drug Use History: None Reported General Exam General appearance: alert Head exam: Present: atraumatic, normocephalic Eye exam: Present: normal appearance, PERRL ENT exam: Present: mucous membranes dry Neck exam: Present: normal inspection. Absent: tenderness, meningismus Respiratory exam: Present: normal lung sounds bilaterally. Absent: respiratory distress, wheezes Cardiovascular Exam: Present: regular rate, normal rhythm GI/Abdominal exam: Present: soft. Absent: distended, tenderness, guarding Extremities exam: Present: normal inspection, normal capillary refill. Absent: pedal edema Neurological exam: Present: alert, other (Patient will respond occasionally. She is confused. She does not appear to have any localizing features. Her speech is clear when she does speak but is not answering questions appropriately.). Absent: oriented X3 Psychiatric exam: Present: anxious Skin exam: Present: warm, dry, intact, pallor. Absent: cyanosis, diaphoretic Course Vital Signs 05/17/21 05/17/21 05/17/21 16:18 17:06 17:31 Temperature 98.1 F 99.7 F H Pulse Rate 101 H 105 H Respiratory 18 20 Rate Blood Pressure 131/67 141/71 O2 Sat by Pulse 93 L 100 Oximetry 05/17/21 19:30 Temperature 98.5 F Pulse Rate Respiratory Rate Blood Pressure O2 Sat by Pulse Oximetry - Reevaluation(s) Reevaluation #1: 05/17/21 19:31 Patient reevaluated she is alert and oriented without complaints. Accompanied by her . EKG Findings - EKG Comments: EKG Findings:: EKG: Sinus tachycardia tremor artifact rate of 105, TX interval 170, QRS duration 70, QTC 376 Medical Decision Making - Medical Decision Making 71-year-old female presenting with altered level consciousness. Patient initially unable to give history. Throughout her stay in the emergency department she does return to baseline mental status. She is alert and oriented 3. She is accompanied by her . She has very low magnesium. Her alcohol level is 0. There is concern for possible seizure which may have been the cause for her altered level of consciousness. Additionally she had a low- grade fever. She refused urinalysis at this time. She refuses urine cath. She does ultimately agree to admission for IV hydration, lateral and replacement. Case discussed with Dr. Valderrama . - Lab Data Result diagrams: 05/17/21 16:20 05/17/21 16:20 Lab Results 05/17/21 05/17/21 05/17/21 Range/Units 16:20 16:20 16:20 WBC 5.0 (3.8-10.6) k/uL RBC 2.77 L (3.80-5.40) m/uL Hgb 10.2 L (11.4-16.0) gm/dL Hct 31.1 L (34.0-46.0) % MCV 112.3 H D (80.0-100.0) fL MCH 36.7 H (25.0-35.0) pg MCHC 32.6 (31.0-37.0) g/dL RDW 12.8 (11.5-15.5) % Plt Count 233 (150-450) k/uL MPV 7.7 Neutrophils % 62 % Lymphocytes % 29 % Monocytes % 6 % Eosinophils % 2 % Basophils % 1 % Neutrophils # 3.1 (1.3-7.7) k/uL Lymphocytes # 1.4 (1.0-4.8) k/uL Monocytes # 0.3 (0-1.0) k/uL Eosinophils # 0.1 (0-0.7) k/uL Basophils # 0.0 (0-0.2) k/uL Manual Slide Review Performed Macrocytosis Marked A PT 10.8 (9.0-12.0) sec INR 1.0 (<1.2) APTT 23.5 (22.0-30.0) sec Sodium 135 L (137-145) mmol/L Potassium 4.2 (3.5-5.1) mmol/L Chloride 109 H (98-107) mmol/L Carbon Dioxide 21 L (22-30) mmol/L Anion Gap 5 mmol/L BUN 12 (7-17) mg/dL Creatinine 0.79 (0.52-1.04) mg/dL Est GFR (CKD-EPI)AfAm 89 (>60 ml/min/1.73 sqM) Est GFR (CKD-EPI)NonAf 77 (>60 ml/min/1.73 sqM) Glucose 102 H (74-99) mg/dL Calcium 7.5 L (8.4-10.2) mg/dL Magnesium 0.8 L* (1.6-2.3) mg/dL Total Bilirubin 0.6 (0.2-1.3) mg/dL AST 17 (14-36) U/L ALT 8 (4-34) U/L Alkaline Phosphatase 80 (38-126) U/L Troponin I (0.000-0.034) ng/mL Total Protein 5.5 L (6.3-8.2) g/dL Albumin 2.6 L (3.5-5.0) g/dL Urine Opiates Screen (NotDetected) Ur Oxycodone Screen (NotDetected) Urine Methadone Screen (NotDetected) Ur Propoxyphene Screen (NotDetected) Ur Barbiturates Screen (NotDetected) U Tricyclic Antidepress (NotDetected) Ur Phencyclidine Scrn (NotDetected) Ur Amphetamines Screen (NotDetected) U Methamphetamines Scrn (NotDetected) U Benzodiazepines Scrn (NotDetected) Urine Cocaine Screen (NotDetected) U Marijuana (THC) Screen (NotDetected) Serum Alcohol <10 mg/dL 05/17/21 05/17/21 Range/Units 16:20 17:47 WBC (3.8-10.6) k/uL RBC (3.80-5.40) m/uL Hgb (11.4-16.0) gm/dL Hct (34.0-46.0) % MCV (80.0-100.0) fL MCH (25.0-35.0) pg MCHC (31.0-37.0) g/dL RDW (11.5-15.5) % Plt Count (150-450) k/uL MPV Neutrophils % % Lymphocytes % % Monocytes % % Eosinophils % % Basophils % % Neutrophils # (1.3-7.7) k/uL Lymphocytes # (1.0-4.8) k/uL Monocytes # (0-1.0) k/uL Eosinophils # (0-0.7) k/uL Basophils # (0-0.2) k/uL Manual Slide Review Macrocytosis PT (9.0-12.0) sec INR (<1.2) APTT (22.0-30.0) sec Sodium (137-145) mmol/L Potassium (3.5-5.1) mmol/L Chloride (98-107) mmol/L Carbon Dioxide (22-30) mmol/L Anion Gap mmol/L BUN (7-17) mg/dL Creatinine (0.52-1.04) mg/dL Est GFR (CKD-EPI)AfAm (>60 ml/min/1.73 sqM) Est GFR (CKD-EPI)NonAf (>60 ml/min/1.73 sqM) Glucose (74-99) mg/dL Calcium (8.4-10.2) mg/dL Magnesium (1.6-2.3) mg/dL Total Bilirubin (0.2-1.3) mg/dL AST (14-36) U/L ALT (4-34) U/L Alkaline Phosphatase (38-126) U/L Troponin I 0.020 (0.000-0.034) ng/mL Total Protein (6.3-8.2) g/dL Albumin (3.5-5.0) g/dL Urine Opiates Screen Not Detected (NotDetected) Ur Oxycodone Screen Not Detected (NotDetected) Urine Methadone Screen Not Detected (NotDetected) Ur Propoxyphene Screen Not Detected (NotDetected) Ur Barbiturates Screen Not Detected (NotDetected) U Tricyclic Antidepress Not Detected (NotDetected) Ur Phencyclidine Scrn Not Detected (NotDetected) Ur Amphetamines Screen Not Detected (NotDetected) U Methamphetamines Scrn Not Detected (NotDetected) U Benzodiazepines Scrn Not Detected (NotDetected) Urine Cocaine Screen Not Detected (NotDetected) U Marijuana (THC) Screen Not Detected (NotDetected) Serum Alcohol mg/dL Disposition Clinical Impression: Hypomagnesemia, Macrocytic anemia, Altered mental status Disposition: ADMITTED IP TO THIS [facility] Condition: Stable Instructions (If sedation given, give patient instructions): Altered Mental Status (ED), Hypomagnesemia (ED) Is patient prescribed a controlled substance at d/c from ED?: No Referrals: None,Stated [REFERRING] - 1-2 days Decision to Admit Reason: Admit from EC Decision Date: 05/17/21 Decision Time: 20:14
[2021-05-17 16:42] LABS: ALT 8 U/L (4-34); AST 17 U/L (14-36); African American GFR (CKD) 89 (>60 ml/min/1.73 sqM); Albumin 2.6 g/dL (3.5-5.0); Alcohol <10 mg/dL; Alkaline Phosphatase 80 U/L (38-126); Anion Gap 5 mmol/L; Blood Urea Nitrogen 12 mg/dL (7-17); Calcium 7.5 mg/dL (8.4-10.2); Carbon Dioxide 21 mmol/L (22-30); Chloride 109 mmol/L (98-107); Glucose 102 mg/dL (74-99); Non-African American GFR(CKD) 77 (>60 ml/min/1.73 sqM); Potassium 4.2 mmol/L (3.5-5.1); Sodium 135 mmol/L (137-145); Total Bilirubin 0.6 mg/dL (0.2-1.3); Total Protein 5.5 g/dL (6.3-8.2)
[2021-05-17 16:43] LABS: Magnesium 0.8 mg/dL (1.6-2.3)
[2021-05-17 16:46] LABS: Basophils % (A) 1 %; Eosinophils # (A) 0.1 k/uL (0-0.7); Eosinophils % (A) 2 %; HCT 31.1 % (34.0-46.0); HGB 10.2 gm/dL (11.4-16.0); Lymphocytes # (A) 1.4 k/uL (1.0-4.8); Lymphocytes % (A) 29 %; MCH 36.7 pg (25.0-35.0); MCHC 32.6 g/dL (31.0-37.0); Macrocytosis Marked; Mean Platelet Volume 7.7; Monocytes # (A) 0.3 k/uL (0-1.0); Monocytes % (A) 6 %; Neutrophils # (A) 3.1 k/uL (1.3-7.7); Neutrophils % (A) 62 %; Partial Thromboplastin Time 23.5 sec (22.0-30.0); Platelet Count 233 k/uL (150-450); Prothrombin Time 10.8 sec (9.0-12.0); RBC 2.77 m/uL (3.80-5.40); RDW 12.8 % (11.5-15.5)
[2021-05-17] MEDS: MAGNESIUM SULFATE-D5W PMX 1 GM in DEXTROSE/WATER 1 100ML.BAG IVPB SCH ×2 (16:54→19:33)
[2021-05-17 17:01] LABS: MCV 112.3 fL (80.0-100.0)
[2021-05-17] MEDS ORDERED: LORazepam 2 MG/ML INJ IV PRN ×3 (17:06)
[2021-05-17] MEDS ORDERED: THIAMINE 100 MG/ML 2 ML VIAL IM STA (17:06)
--- NOTE | 2021-05-17 17:32 | CT ---
EXAMINATION TYPE: CT brain wo con DATE OF EXAM: 05/17/2021 HISTORY: AMS CT DLP: 1147.4 mGycm. Automated Exposure Control for Dose Reduction was Utilized. TECHNIQUE: CT scan of the head is performed without contrast. COMPARISON: CT brain October 04, 2018. FINDINGS: More prominent artifact inferior aspect cerebellum on current study limited evaluation at this level. There is no acute intracranial hemorrhage or midline shift identified. There is mild-to-m oderate diffuse ventricular and sulcal prominence consistent with diffuse cerebral atrophy greatest o ryan the bilateral frontal lobes. There is mild low-attenuation in the periventricular white matter c onsistent with chronic small vessel ischemic change. Dependent fluid in the bilateral sphenoid sinuse s redemonstrated. Globes are intact. IMPRESSION: No acute intracranial hemorrhage or midline shift. There is [id number] diffuse ce rebral atrophy and mild chronic small vessel ischemic change along with bilateral sphenoid sinus dise ase all redemonstrated. No significant change from prior.
[2021-05-17] MEDS ORDERED: ACETAMINOPHEN TAB 500 MG TAB PO STA (17:41)
[2021-05-17 18:05] LABS: Amphetamine Screen,Urine Not Detected (NotDetected); Barbiturate Screen,Urine Not Detected (NotDetected); Benzodiazepines Screen,Urine Not Detected (NotDetected); Cocaine Screen,Urine Not Detected (NotDetected); Methadone Screen, Urine Not Detected (NotDetected); Opiate Screen,Urine Not Detected (NotDetected); Oxycodone Screen, Urine Not Detected (NotDetected); Phencyclidine Screen,Urine Not Detected (NotDetected); Tricyclic Antidepressant,Urine Not Detected (NotDetected); Urn Cannabinoid Scrn Not Detected (NotDetected)
[2021-05-17] MEDS ORDERED: diazePAM 5 MG TAB PO STA (20:18)
[2021-05-17] MEDS ORDERED: NALOXONE 0.4 MG/ML 1 ML VIAL IV PRN (20:19)
[2021-05-17] MEDS: SODIUM CHLORIDE 0.9% 1,000 ML IV SCH (22:28)
[2021-05-17] MEDS: diazePAM 5 MG TAB PO SCH (22:28)
[2021-05-17] MEDS: APIXABAN 5 MG TAB PO SCH (22:40)
[2021-05-18] MEDS: diazePAM 5 MG TAB PO SCH ×3 (10:21→21:19)
[2021-05-18] MEDS: METOPROLOL SUCCINATE (ER) 25 MG TAB.ER.24H PO SCH (10:21)
[2021-05-18] MEDS: PANTOPRAZOLE 40 MG TABLET PO SCH (10:21)
[2021-05-18] MEDS: APIXABAN 5 MG TAB PO SCH ×2 (10:21→21:19)
[2021-05-18] MEDS: FOLIC ACID 1 MG TAB PO SCH (10:21)
[2021-05-18] MEDS: THIAMINE 100 MG TAB PO SCH ×2 (10:22→16:21)
[2021-05-18 14:04] VITALS: BMI 16.1
[2021-05-18] MEDS: SODIUM CHLORIDE 0.9% 1,000 ML IV SCH ×2 (16:27→23:44)
[2021-05-18] MEDS ORDERED: CALCIUM CARBONATE 500 MG CHEWABLE PO PRN (19:30)
[2021-05-18] MEDS ORDERED: LACTULOSE 20 GM/30 ML CUP PO PRN (19:30)
[2021-05-18] MEDS ORDERED: ONDANSETRON 4 MG/2 ML VIAL IVP PRN (19:30)
--- NOTE | 2021-05-18 19:40 | P.HPIM ---
History of Present Illness H&P Date: 05/18/21 Chief Complaint: Weak tired This is a 71-year-old patient who follows with visiting physicians Dr. Hendricks. Most of the history is obtained by the at the bedside. Chronic stable medical conditions include DVT, GERD, hypertension, memory impairment, alcohol use disorder. Peripheral neuropathy alcoholic hepatitis, Boland's esophagitis. Patient now presents with weak diet increasingly forgetful. Hallucinating. Patient drinks anywhere from 5-8 screwdrivers a day. Has been drinking for any years. Patient may eat 1 meal a day. Patient is put on CIWA scale in the ER. She pretty much spends her time in the bed. She has a bedside commode. Most of the history is obtained by the and the bedside. Patient does not know the year nor does she know the month. They moved from [place] few months ago. Their son and his gave nearby. Patient also smokes a pack a day. Review of systems: GEN.: Decreased appetite weight loss EYES: None HEENT: None NECK: None RESPIRATORY: None CARDIOVASCULAR: None GASTROINTESTINAL: None GENITOURINARY: None MUSCULOSKELETAL: Some joint pains LYMPHATICS: None HEMATOLOGICAL: None PSYCHIATRY: Forgetful NEUROLOGICAL: Generalized weakness Past medical history to include: DVT, GERD, hypertension, alcohol use disorder, peripheral neuropathy, hallucinations, pancytopenia, alcoholic hepatitis, Boland's esophagitis Social history: Drinks anywhere from 5-8 screwdrivers a day. Smokes a pack a day since 1967. This is a . Uses a bedside commode. Family history: Heart problems Physical examination: VITAL SIGNS: 98.1, 101, 18, 131/67, 93% room air GENERAL: BMI 16.1, thin built, laying in bed, loss of muscle mass and subcutaneous fat. EYES: Pupils equal. Conjunctiva normal. HEENT: External appearance of nose and ears normal, oral cavity grossly normal. NECK: JVD not raised; masses not palpable. HEART: First and second heart sounds are normal; no edema. LUNGS: Respiratory rate normal; decreased breath sounds. ABDOMEN: Soft, nontender, liver spleen not palpable, no masses palpable. PSYCH: Patient knows her name does not know why she is does not go at the year or the monthl. MUSCULOSKELETAL:No Clubbing/cyanosis;muscles-grossly intact. Evidence of OA. Loss of muscle mass NEUROLOGICAL: Cranial nerves grossly intact; no facial asymmetry, power and sensation grossly intact. Decreased sensation distally LYMPHATICS: No lymph nodes palpable in the axilla and neck INVESTIGATIONS, reviewed in the clinical context: EKG tracing personally reviewed by me-sinus tachycardia. Rate 105 White count 5 hemoglobin 10.2 MCV 112.3 platelets 233 sodium 135 potassium 4.2 by cup 21 BUN 12 creatine 0.79 Magnesium 0.8 albumin 2.6 Assessment and plan: -Acute on chronic medical debility from poor oral intake. Long-standing alcoholic. Poor nutritional status. Malnutrition Fall precautions. PT OT. Bedside commode. Bed rest. -Alcohol use disorder Thiamine. Multivitamin. CIWA scale. Scheduled Valium -Severe malnutrition from poor oral intake Ensure one can 3 times a day. Dietitian consult. -Alcohol-induced dementia Check B12 level -Chronic DVT Eliquis. Toprol-XL -Macrocytic anemia secondary to poor nutritional status Check B12, iron studies -Severe hypomagnesemia secondary to alcoholism Replace magnesium -GERD Protonix -Nicotine dependence Nicotine patch Patient put on scheduled Valium. CIWA scale. Thiamine. Multivitamin. And showed. Dietitian consult. Fall precautions. PT OT. Bedrest with bedside commode. Care was discussed at length with the patient at the bedside. Questions answered. Given the complexity and severity of patient's condition expect the patient to be in the hospital at least for 2 overnights Past Medical History Past Medical History: Deep Vein Thrombosis (DVT), GERD/Reflux, Hypertension, Memory Impairment Additional Past Medical History / Comment(s): ETOH abuse/spouse states memory is declining and pt hallucinates at night time/sees mice on the celing, DVT L leg x2 and blood clot to abdomin, recent healed frature R 5th toe, gait dysfunction/pt stays mostly in bed and uses a bsc, chronic pain/neuropathy bilateral feet/legs, past medical hx documents panc ytopenia/hypomagnesemia/hypocalcemia/elevated AST-mild alcoholic hepatitis and possible boland's esophagitis but spouse unaware of these things. History of Any Multi-Drug Resistant Organisms: None Reported Additional Past Surgical History / Comment(s): egd,precancer esophagus Past Anesthesia/Blood Transfusion Reactions: No Reported Reaction Smoking Status: Current every day smoker - Past Family History Mother Additional Family Medical History / Comment(s): Heart problems. Father Family Medical History: No Reported History Medications and Allergies Home Medications Medication Instructions Recorded Confirmed Type Apixaban [Eliquis] 5 mg PO BID 03/16/21 05/17/21 History Folic Acid 1 mg PO DAILY #30 tablet 03/18/21 05/17/21 Rx Metoprolol Succinate (ER) [Toprol 25 mg PO DAILY 30 Days #30 tab 03/18/21 05/17/21 Rx XL] HYDROcodone/APAP 5-325MG [[place] 1 tab PO Q6HR PRN 05/17/21 05/17/21 History 5-325] LORazepam [Ativan] 1 mg PO BID PRN 05/17/21 05/17/21 History Magnesium 250 mg PO DAILY 05/17/21 05/17/21 History Ondansetron Odt [Zofran Odt] 4 mg PO Q8HR PRN 05/17/21 05/17/21 History Pantoprazole [Protonix] 40 mg PO DAILY 05/17/21 05/17/21 History Allergies Allergy/AdvReac Type Severity Reaction Status Date / Time Sulfa (Sulfonamide Allergy Rash/Hives Verified 05/17/21 18:42 Antibiotics) sulfur dioxide Allergy Rash/Hives Verified 05/17/21 18:42 acetaminophen [From Tylenol] AdvReac STOMACH Verified 05/17/21 18:42 PAINS aspirin AdvReac STOMACH Verified 05/17/21 18:42 PAINS Physical Exam Vitals: Vital Signs Temp Pulse Pulse Resp BP BP Pulse Ox 05/18/21 07:23 97 05/18/21 04:00 97.9 F 99 16 126/84 98 05/18/21 02:35 98.2 F 72 16 117/75 91 L 05/17/21 22:40 87 16 107/70 96 05/17/21 20:29 99 16 112/69 97 05/17/21 19:30 98.5 F 05/17/21 17:31 99.7 F H 05/17/21 17:06 105 H 20 141/71 100 05/17/21 16:18 98.1 F 101 H 18 131/67 93 L Intake and Output 05/17/21 05/18/21 05/18/21 22:59 06:59 14:59 Other: Voiding Method Diaper # Voids 2 1 Weight 45.359 kg 45.359 kg Results CBC & Chem 7: 05/17/21 16:20 05/17/21 16:20 Labs: Abnormal Lab Results - Last 24 Hours (Table) 05/17/21 05/17/21 Range/Units 16:20 16:20 RBC 2.77 L (3.80-5.40) m/uL Hgb 10.2 L (11.4-16.0) gm/dL Hct 31.1 L (34.0-46.0) % MCV 112.3 H D (80.0-100.0) fL MCH 36.7 H (25.0-35.0) pg Macrocytosis Marked A Sodium 135 L (137-145) mmol/L Chloride 109 H (98-107) mmol/L Carbon Dioxide 21 L (22-30) mmol/L Glucose 102 H (74-99) mg/dL Calcium 7.5 L (8.4-10.2) mg/dL Magnesium 0.8 L* (1.6-2.3) mg/dL Total Protein 5.5 L (6.3-8.2) g/dL Albumin 2.6 L (3.5-5.0) g/dL Thrombosis Risk Factor Assmnt - Choose All That Apply Any of the Below Risk Factors Present?: Yes Other Risk Factors: Yes Each Risk Factor Represents 2 Points: Age 61-74 years Each Risk Factor Represents 3 Points: Family history of DVT/PE Other congenital or acquired thrombophilia - If yes, enter type in comment: No Thrombosis Risk Factor Assessment Total Risk Factor Score: 5 Thrombosis Risk Factor Assessment Level: High Risk
--- NOTE | 2021-05-18 20:58 | XR ---
EXAMINATION TYPE: XR chest 1V portable DATE OF EXAM: 05/18/2021 COMPARISON: 03/16/2021 HISTORY: Short of breath TECHNIQUE: Single view FINDINGS: There is no heart failure nor confluent pneumonic infiltrate. There is mild blunting right costophrenic angle. Heart is borderline enlarged. There are chest leads. IMPRESSION: Small right pleural effusion increased compared to last exam. Pleural reaction and infilt rate at the left lung base is improved. No heart failure.
[2021-05-18] MEDS: MAGNESIUM OXIDE 400 MG TAB PO SCH (21:19)
[2021-05-18] MEDS: MULTIVITAMINS, THERA 1 EACH TAB PO SCH (21:19)
[2021-05-18] MEDS: NICOTINE 21MG/24HR PATCH TRANSDERM SCH (21:19)
[2021-05-19 03:54] LABS: % Iron Saturation 16.48 (12.00-45.00)
[2021-05-19] MEDS: METOPROLOL SUCCINATE (ER) 25 MG TAB.ER.24H PO SCH (09:47)
[2021-05-19] MEDS: MULTIVITAMINS, THERA 1 EACH TAB PO SCH (09:47)
[2021-05-19] MEDS: MAGNESIUM OXIDE 400 MG TAB PO SCH (09:47)
[2021-05-19] MEDS: THIAMINE 100 MG TAB PO SCH (09:48)
[2021-05-19] MEDS: APIXABAN 5 MG TAB PO SCH (09:48)
[2021-05-19] MEDS: diazePAM 5 MG TAB PO SCH (09:48)
[2021-05-19] MEDS: NICOTINE 21MG/24HR PATCH TRANSDERM SCH (09:48)
[2021-05-19] MEDS: FOLIC ACID 1 MG TAB PO SCH (09:48)
[2021-05-19] MEDS: PANTOPRAZOLE 40 MG TABLET PO SCH (09:48)
--- NOTE | 2021-05-19 10:13 | ECHOF ---
Referral Reason:Cardiomegaly MEASUREMENTS -------- HEIGHT: 167.6 cm WEIGHT: 45.4 kg BP: 138/81 RVIDd: 2.6 cm (< 3.3) IVSd: 0.9 cm (0.6 - 1.1) LVIDd: 4.2 cm (3.9 - 5.3) LVPWd: 1.1 cm (0.6 - 1.1) IVSs: 1.7 cm LVIDs: 2.6 cm LVPWs: 1.6 cm LA Diam: 3.1 cm (2.7 - 3.8) Ao Diam: 3.0 cm (2.0 - 3.7) AV Cusp: 1.7 cm (1.5 - 2.6) MV EXCURSION: 12.495 mm (> 18.000) MV EF SLOPE: 113 mm/s (70 - 150) EPSS: 0.4 cm MV E Rangel: 1.20 m/s MV DecT: 172 ms MV A Rangel: 0.81 m/s MV E/A Ratio: 1.48 AR PHT: 409 ms RAP: 5.00 mmHg RVSP: 36.46 mmHg FINDINGS -------- Sinus rhythm. This was a technically adequate study. The left ventricular size is normal. Left ventricular wall thickness is normal. Overall left vent ricular systolic function is normal with, an EF between 55 - 60 %. The right ventricle is normal in size. The left atrium is normal in size. The right atrial size is normal. Interatrial and interventricular septum intact. There is mild aortic valve sclerosis. The mitral valve leaflets are mildly thickened. Moderate mitral regurgitation is present. The tricuspid valve appears structurally normal. Rojc-nj-hufruddi tricuspid regurgitation present. There is mild pulmonary hypertension. The right ventricular systolic pressure, as measured by Dop pler, is 36.46mmHg. The pulmonic valve was not well visualized. There is no pulmonic regurgitation present. The aortic root size is normal. Normal inferior vena cava with normal inspiratory collapse consistent with estimated right atrial pre ssure of 5 mmHg. There is no pericardial effusion. CONCLUSIONS -------- 1. Left ventricular wall thickness is normal. 2. Overall left ventricular systolic function is normal with, an EF between 55 - 60 %. 3. There is mild aortic valve sclerosis. 4. Moderate mitral regurgitation is present. 5. Seth-qd-qbfoicor tricuspid regurgitation present. 6. There is mild pulmonary hypertension. 7. There is no pericardial effusion. OCEAN FREIGHT FORWARDER: Latasha Tillman RDCS
[2021-05-19 12:29] VITALS: BP 128/87; PULSE 75; RESP 20; TEMP 97.4
--- NOTE | 2021-05-19 18:36 | P.DS ---
Providers Date of admission: 05/17/21 20:19 Expected date of discharge: 05/19/21 Attending physician: Todd Valderrama Primary care physician: Piyush Hendricks MD Hospital Course: Chief Complaint: Weak tired This is a 71-year-old patient who follows with visiting physicians Dr. Hendricks. Most of the history is obtained by the at the bedside. Chronic stable medical conditions include DVT, GERD, hypertension, memory impairment, alcohol use disorder. Peripheral neuropathy alcoholic hepatitis, Hansen's esophagitis. Patient now presents with weak diet increasingly forgetful. Hallucinating. Patient drinks anywhere from 5-8 screwdrivers a day. Has been drinking for any years. Patient may eat 1 meal a day. Patient is put on CIWA scale in the ER. She pretty much spends her time in the bed. She has a bedside commode. Most of the history is obtained by the and the bedside. Patient does not know the year nor does she know the month. They moved from [place] few months ago. Their son and his gave nearby. Patient also smokes a pack a day. Admitted with acute on chronic medical debility from chronic alcoholism. Protein calorie malnutrition. Alcohol use disorder. Treated with CIWA scale Valium. Given multivitamins. IV fluids. Diagnosed to have alcohol induced dementia. Lengthy discussion was held with the about complete cessation of alcohol. May 19: Patient more awake. Anxious. Spoke to the hospital on the phone. Also onsite case manager involved to call patient's son to get involved to make sure alcohol is not provided. Disulfiram and naltrexone has been prescribed. Also doxepin 10 mg at night for sleeping. Discussed with nurse. Lauri prescribed. Oral intake fair Discussion and discharge planning more than 35 minutes Past medical history to include: DVT, GERD, hypertension, alcohol use disorder, peripheral neuropathy, hallucinations, pancytopenia, alcoholic hepatitis, Hansen's esophagitis Social history: Drinks anywhere from 5-8 screwdrivers a day. Smokes a pack a day since 1967. This is a . Uses a bedside commode. Family history: Heart problems Physical examination: VITAL SIGNS: 97.4, 75, 20, 128/87, 98% room air GENERAL: BMI 16.1, thin built, laying in bed, loss of muscle mass and subcutaneous fat. EYES: Pupils equal. Conjunctiva normal. HEENT: External appearance of nose and ears normal, oral cavity grossly normal. NECK: JVD not raised; masses not palpable. HEART: First and second heart sounds are normal; no edema. LUNGS: Respiratory rate normal; decreased breath sounds. ABDOMEN: Soft, nontender, liver spleen not palpable, no masses palpable. PSYCH: Patient can answer simple questions MUSCULOSKELETAL:No Clubbing/cyanosis;muscles-grossly intact. Evidence of OA. Loss of muscle mass NEUROLOGICAL: Cranial nerves grossly intact; no facial asymmetry, power and sensation grossly intact. Decreased sensation distally INVESTIGATIONS, reviewed in the clinical context: 2-D echocardiogram: EF 55-60%. Moderate mitral regurgitation. EKG tracing personally reviewed by me-sinus tachycardia. Rate 105 White count 5 hemoglobin 10.2 MCV 112.3 platelets 233 sodium 135 potassium 4.2 by cup 21 BUN 12 creatine 0.79 Magnesium 0.8 albumin 2.6 Assessment and plan: -Acute on chronic medical debility from poor oral intake. Long-standing alcoholic. Poor nutritional status. Malnutrition Fall precautions. PT OT. Bedside commode. Bed rest. -Alcohol use disorder Thiamine. Multivitamin. CIWA scale. Scheduled Valium -Severe malnutrition from poor oral intake Ensure one can 3 times a day. Dietitian consult. -Alcohol-induced dementia Check B12 level -Chronic DVT Eliquis. Toprol-XL -Moderate mitral regurgitation Follow clinically -Macrocytic anemia secondary to poor nutritional status Element of iron deficiency anemia. Iron supplement. -Severe hypomagnesemia secondary to alcoholism Replace magnesium -GERD Protonix -Nicotine dependence Nicotine patch Disposition: Home Plan - Discharge Summary Discharge Rx Participant: No New Discharge Prescriptions: New Disulfiram 250 mg PO DIRECTED #50 tablet Nicotine 21Mg/24Hr Patch [Habitrol] 1 patch TRANSDERM DAILY #14 patch Naltrexone HCl [Revia] 50 mg PO DAILY #30 tablet Thiamine [Vitamin B-1] 100 mg PO BID-W/MEALS #30 tab Magnesium Oxide [Mag-Ox] 400 mg PO BID #30 tab Multivitamins, Thera [Multivitamin (formulary)] 1 each PO DAILY #30 tab Doxepin [SINEquan] 10 mg PO HS #30 capsule Continue Apixaban [Eliquis] 5 mg PO BID LORazepam [Ativan] 1 mg PO BID PRN PRN Reason: Anxiety Pantoprazole [Protonix] 40 mg PO DAILY Folic Acid 1 mg PO DAILY #30 tablet Metoprolol Succinate (ER) [Toprol XL] 25 mg PO DAILY 30 Days #30 tab HYDROcodone/APAP 5-325MG [[place] 5-325] 1 tab PO Q6HR PRN PRN Reason: Pain Ondansetron Odt [Zofran ODT] 4 mg PO Q8HR PRN PRN Reason: Nausea Discontinued Magnesium 250 mg PO DAILY Discharge Medication List Apixaban [Eliquis] 5 mg PO BID 03/16/21 [History] Folic Acid 1 mg PO DAILY #30 tablet 03/18/21 [Rx] Metoprolol Succinate (ER) [Toprol XL] 25 mg PO DAILY 30 Days #30 tab 03/18/21 [Rx] HYDROcodone/APAP 5-325MG [[place] 5-325] 1 tab PO Q6HR PRN 05/17/21 [History] LORazepam [Ativan] 1 mg PO BID PRN 05/17/21 [History] Ondansetron Odt [Zofran ODT] 4 mg PO Q8HR PRN 05/17/21 [History] Pantoprazole [Protonix] 40 mg PO DAILY 05/17/21 [History] Disulfiram 250 mg PO DIRECTED #50 tablet 05/19/21 [Rx] Doxepin [SINEquan] 10 mg PO HS #30 capsule 05/19/21 [Rx] Magnesium Oxide [Mag-Ox] 400 mg PO BID #30 tab 05/19/21 [Rx] Multivitamins, Thera [Multivitamin (formulary)] 1 each PO DAILY #30 tab 05/19/21 [Rx] Naltrexone HCl [Revia] 50 mg PO DAILY #30 tablet 05/19/21 [Rx] Nicotine 21Mg/24Hr Patch [Habitrol] 1 patch TRANSDERM DAILY #14 patch 05/19/21 [Rx] Thiamine [Vitamin B-1] 100 mg PO BID-W/MEALS #30 tab 05/19/21 [Rx] Follow up Appointment(s)/Referral(s): dr LIU [Other] - 1 Week Eladio,Piyush Peterson MD [Primary Care Provider] - 3 Days Patient Instructions/Handouts: Doxepin (By mouth), Thiamine (By mouth), Disulfiram (By mouth), Multivitamins, Adult Formula (By mouth), Nicotine (Absorbed through the skin), Naltrexone (By mouth), Magnesium Oxide (By mouth), Hypomagnesemia (ED), Altered Mental Status (ED) Discharge Disposition: HOME SELF-CARE
== END 2021-05-19 14:55 | disposition home or self-care (01) | DRG 641 ==
LOC: EC 16:08 → 5NMEDONC 20:19
PROVIDERS: ADMIT Hospitalist; ATTEND Hospitalist
DX: E43 Unspecified severe protein-calorie malnutrition (principal); Z68.1 Body mass index [BMI] 19.9 or less, adult; F10.27 Alcohol dependence with alcohol-induced persisting dementia; D61.818 Other pancytopenia; F17.210 Nicotine dependence, cigarettes, uncomplicated; E83.42 Hypomagnesemia; G62.1 Alcoholic polyneuropathy; K70.10 Alcoholic hepatitis without ascites; K22.70 Barrett's esophagus without dysplasia; R53.81 Other malaise; I10 Essential (primary) hypertension; I34.0 Nonrheumatic mitral (valve) insufficiency; K21.9 Gastro-esophageal reflux disease without esophagitis; Z20.822 Contact with and (suspected) exposure to COVID-19; Z88.6 Allergy status to analgesic agent; Z88.2 Allergy status to sulfonamides; Z88.8 Allergy status to other drugs, medicaments and biological substances; Z86.718 Personal history of other venous thrombosis and embolism; Z79.01 Long term (current) use of anticoagulants; Z79.899 Other long term (current) drug therapy
CPT/HCPCS: 36415; 70450; 71045; 80053; 80306; 80320; 82607; 83540; 83550; 83735; 84484; 85025; 85610; 85730; 87635; 93005; 93306; 94760; 96361; 96365; 96375; 99285

== ENCOUNTER 2021-05-28 07:16 | Inpatient (IN) | payer MEDICARE, OTHER ==
[2021-05-28 07:38] LABS: Glucose,Whole Blood 71 mg/dL (75-99)
--- NOTE | 2021-05-28 08:20 | ED ---
General Adult HPI - General Chief complaint: Altered Mental Status Stated complaint: AMS Time Seen by Provider: 05/28/21 07:26 Source: EMS Mode of arrival: EMS Limitations: altered mental status - History of Present Illness Initial comments: Dictation was produced using [employer]ensing[employer] dictation software. please excuse any grammatical, word or spelling errors. Chief Complaint: 71-year-old female presents to the emergency department for altered mental status. History of Present Illness: Patient is a 71-year-old female presents to the emergency department for altered mental status. Patient isn't able to provide history present illness secondary to mental status. According to nursing receive report from EMS patient was brought here from home. Unclear with patient's normal mental status is. Allegedly she was just [facility] recently for similar issue. According discharge summary she was admitted for altered mental status. She allegedly has a history of alcohol use disorder, malnutrition from poor oral intake, alcohol induced dementia and electrolyte deficiency secondary to poor oral intake. According to nurse patient's is en route to the emergency department. Unable to obtain ROS secondary to mental status PHYSICAL EXAM: General Impression: Lethargic, weak HEENT: Normocephalic atraumatic, extra-ocular movements intact, pupils equal and reactive to light bilaterally, dry mucous membranes Cardiovascular: Heart regular rate and rhythm Chest: no retractions, no tachypnea, clear lung signs bilaterally Abdomen: Palpable vertical mass in the right abdomen extending from the right upper quadrant and the right lower quadrant Musculoskeletal: Pulses present and equal in all extremities, no peripheral edema Motor: Moves all extremity is grossly Neurological: CN II-XII grossly intact, no focal motor or sensory deficits noted, weak globally Skin: Intact with no visualized rashes ED course: 71-year-old male presents to emergency room for altered mental status. Vital signs upon arrival are within acceptable limits. Patient evaluated at the bedside. She is not able to provide history present illness at this time. Patient is here for altered mental status unsure what patient's normal baseline mentation is. Chart review was performed. Patient was discharged from the facility approximately 10 days ago. She was diagnosed with alcohol use disorder, mental debility secondary to poor oral intake and alcoholism. Patient does not have any focal neurologic deficits however she is significantly weak. According to the ER documentation from May 19 patient initially presented with a similar presentation. However at that time in the emergency department her mentation improved to the point where she is having meaningful conversation. EKG interpretation: Ventricular rate 94, sinus rhythm,. 120, QRS 77, QTC 408. No VT prolongation, no QTC prolongation, no ST or T-wave changes noted. EKG compared to. May 17 2021 showing no changes. Overall, this EKG is unremarkable Laboratory evaluation obtained. CBC shows an C1 21.6. Patient has had macrocytosis in the past. Coag panel is unremarkable. Venous blood gas shows pH of 7.23 with bicarb of 7 and a pCO2 of 17. Significant for metabolic acidosis with respiratory compensation. Metabolic panel shows potassium 6.1, bicarbonate, elevated renal markers. Blood glucose of 71. Rest of blood work is unremarkable. Urinalysis shows 2+ ketones negative tox labs. Computed tomography scan the brain shows no acute processes. Computed tomography scan abdomen and pelvis shows sludge in the gallbladder and perhaps enteritis. Chest x-ray is nonacute. Patient reevaluated at bedside and found to be in the same clinical condition. Patient be readmitted to Dr. Valderrama's service. Patient given thiamine and hyperkalemic cocktail. - Related Data Home Medications Medication Instructions Recorded Confirmed Apixaban [Eliquis] 5 mg PO BID 03/16/21 05/28/21 HYDROcodone/APAP 5-325MG [[place] 1 tab PO Q6HR PRN 05/17/21 05/28/21 5-325] LORazepam [Ativan] 1 mg PO BID PRN 05/17/21 05/28/21 Ondansetron Odt [Zofran ODT] 4 mg PO Q8HR PRN 05/17/21 05/28/21 Pantoprazole [Protonix] 40 mg PO DAILY 05/17/21 05/28/21 Albuterol Inhaler [Ventolin Hfa 2 puff INHALATION RT-QID PRN 05/28/21 05/28/21 Inhaler] Disulfiram See Taper PO DIRECTED 05/28/21 05/28/21 Multivitamins, Thera [Multivitamin 1 tab PO DAILY 05/28/21 05/28/21 (formulary)] Nicotine 21Mg/24Hr Patch [Habitrol] 1 patch TRANSDERM DAILY PRN 05/28/21 05/28/21 Previous Rx's Medication Instructions Recorded Folic Acid 1 mg PO DAILY #30 tablet 03/18/21 Metoprolol Succinate (ER) [Toprol 25 mg PO DAILY 30 Days #30 tab 03/18/21 XL] Doxepin [SINEquan] 10 mg PO HS #30 capsule 05/19/21 Magnesium Oxide [Mag-Ox] 400 mg PO BID #30 tab 05/19/21 Naltrexone HCl [Revia] 50 mg PO DAILY #30 tablet 05/19/21 Thiamine [Vitamin B-1] 100 mg PO BID-W/MEALS #30 tab 05/19/21 Allergies Allergy/AdvReac Type Severity Reaction Status Date / Time Sulfa (Sulfonamide Allergy Rash/Hives Verified 05/28/21 09:12 Antibiotics) sulfur dioxide Allergy Rash/Hives Verified 05/28/21 09:12 acetaminophen [From Tylenol] AdvReac STOMACH Verified 05/28/21 09:12 PAINS aspirin AdvReac STOMACH Verified 05/28/21 09:12 PAINS Review of Systems ROS Statement: Those systems with pertinent positive or pertinent negative responses have been documented in the HPI. ROS Other: All systems not noted in ROS Statement are negative. Past Medical History Past Medical History: Deep Vein Thrombosis (DVT), GERD/Reflux, Hypertension, Memory Impairment Additional Past Medical History / Comment(s): ETOH abuse/spouse states memory is declining and pt hallucinates at night time/sees mice on the celing, DVT L leg x2 and blood clot to abdomin, recent healed frature R 5th toe, gait dysfunction/pt stays mostly in bed and uses a bsc, chronic pain/neuropathy bilateral feet/legs, past medical hx documents pancytopenia/hypomagnesemia/hypocalcemia/elevated AST-mild alcoholic hepatitis and possible boland's esophagitis but spouse unaware of these things. History of Any Multi-Drug Resistant Organisms: None Reported Additional Past Surgical History / Comment(s): egd,precancer esophagus Past Anesthesia/Blood Transfusion Reactions: No Reported Reaction Past Psychological History: Depression Smoking Status: Current every day smoker - Past Family History Mother Additional Family Medical History / Comment(s): Heart problems. Father Family Medical History: No Reported History General Exam Limitations: altered mental status Course Vital Signs 05/28/21 07:18 Temperature 97 F L Pulse Rate 82 Respiratory 16 Rate Blood Pressure 102/67 O2 Sat by Pulse 100 Oximetry Medical Decision Making - Lab Data Result diagrams: 05/28/21 08:19 05/28/21 08:19 Lab Results 05/28/21 05/28/21 05/28/21 Range/Units 07:36 08:10 08:19 WBC 7.2 (3.8-10.6) k/uL RBC 3.38 L (3.80-5.40) m/uL Hgb 12.0 (11.4-16.0) gm/dL Hct 41.1 (34.0-46.0) % MCV 121.6 H D (80.0-100.0) fL MCH 35.6 H (25.0-35.0) pg MCHC 29.3 L (31.0-37.0) g/dL RDW 12.8 (11.5-15.5) % Plt Count 218 (150-450) k/uL MPV 8.6 Neutrophils % 73 % Lymphocytes % 18 % Monocytes % 5 % Eosinophils % 1 % Basophils % 1 % Neutrophils # 5.3 (1.3-7.7) k/uL Lymphocytes # 1.3 (1.0-4.8) k/uL Monocytes # 0.4 (0-1.0) k/uL Eosinophils # 0.1 (0-0.7) k/uL Basophils # 0.1 (0-0.2) k/uL Manual Slide Review Performed Hypochromasia Marked Poikilocytosis (manual Present Anisocytosis (manual) Present Macrocytosis Marked A PT (9.0-12.0) sec INR (<1.2) APTT (22.0-30.0) sec VBG pH (7.31-7.41) VBG pCO2 (37-51) mmHg VBG HCO3 (24-28) mmol/L Sodium (137-145) mmol/L Potassium (3.5-5.1) mmol/L Chloride (98-107) mmol/L Carbon Dioxide (22-30) mmol/L Anion Gap mmol/L BUN (7-17) mg/dL Creatinine (0.52-1.04) mg/dL Est GFR (CKD-EPI)AfAm (>60 ml/min/1.73 sqM) Est GFR (CKD-EPI)NonAf (>60 ml/min/1.73 sqM) Glucose (74-99) mg/dL POC Glucose (mg/dL) 71 L (75-99) mg/dL POC Glu Sales Systems Engineer ID Kody Vyas Plasma Lactic Acid Jose (0.7-2.0) mmol/L Calcium (8.4-10.2) mg/dL Magnesium (1.6-2.3) mg/dL Total Bilirubin (0.2-1.3) mg/dL AST (14-36) U/L ALT (4-34) U/L Alkaline Phosphatase (38-126) U/L Ammonia (<30) umol/L Creatine Kinase (30-135) U/L Troponin I (0.000-0.034) ng/mL Total Protein (6.3-8.2) g/dL Albumin (3.5-5.0) g/dL TSH (0.465-4.680) mIU/L Urine Color Yellow Urine Appearance Clear (Clear) Urine pH 5.0 (5.0-8.0) Ur Specific [place] 1.019 (1.001-1.035) Urine Protein Negative (Negative) Urine Glucose (UA) Negative (Negative) Urine Ketones 2+ H (Negative) Urine Blood Negative (Negative) Urine Nitrite Negative (Negative) Urine Bilirubin 1+ H (Negative) Urine Urobilinogen <2.0 (<2.0) mg/dL Ur Leukocyte Esterase Negative (Negative) Urine Opiates Screen Not Detected (NotDetected) Ur Oxycodone Screen Detected H (NotDetected) Urine Methadone Screen Not Detected (NotDetected) Ur Propoxyphene Screen Not Detected (NotDetected) Acetaminophen ug/mL Ur Barbiturates Screen Not Detected (NotDetected) U Tricyclic Antidepress Detected H (NotDetected) Ur Phencyclidine Scrn Not Detected (NotDetected) Ur Amphetamines Screen Not Detected (NotDetected) U Methamphetamines Scrn Not Detected (NotDetected) U Benzodiazepines Scrn Detected H (NotDetected) Urine Cocaine Screen Not Detected (NotDetected) U Marijuana (THC) Screen Not Detected (NotDetected) Serum Alcohol mg/dL 05/28/21 05/28/21 05/28/21 Range/Units 08:19 08:19 08:19 WBC (3.8-10.6) k/uL RBC (3.80-5.40) m/uL Hgb (11.4-16.0) gm/dL Hct (34.0-46.0) % MCV (80.0-100.0) fL MCH (25.0-35.0) pg MCHC (31.0-37.0) g/dL RDW (11.5-15.5) % Plt Count (150-450) k/uL MPV Neutrophils % % Lymphocytes % % Monocytes % % Eosinophils % % Basophils % % Neutrophils # (1.3-7.7) k/uL Lymphocytes # (1.0-4.8) k/uL Monocytes # (0-1.0) k/uL Eosinophils # (0-0.7) k/uL Basophils # (0-0.2) k/uL Manual Slide Review Hypochromasia Poikilocytosis (manual Anisocytosis (manual) Macrocytosis PT 11.0 (9.0-12.0) sec INR 1.0 (<1.2) APTT 22.5 (22.0-30.0) sec VBG pH (7.31-7.41) VBG pCO2 (37-51) mmHg VBG HCO3 (24-28) mmol/L Sodium 142 (137-145) mmol/L Potassium 6.1 H* (3.5-5.1) mmol/L Chloride 116 H (98-107) mmol/L Carbon Dioxide 8 L* (22-30) mmol/L Anion Gap 18 mmol/L BUN 23 H (7-17) mg/dL Creatinine 1.60 H (0.52-1.04) mg/dL Est GFR (CKD-EPI)AfAm 37 (>60 ml/min/1.73 sqM) Est GFR (CKD-EPI)NonAf 33 (>60 ml/min/1.73 sqM) Glucose 71 L (74-99) mg/dL POC Glucose (mg/dL) (75-99) mg/dL POC Glu Sales Systems Engineer ID Plasma Lactic Acid Jose 1.7 (0.7-2.0) mmol/L Calcium 8.5 (8.4-10.2) mg/dL Magnesium 2.0 (1.6-2.3) mg/dL Total Bilirubin 0.6 (0.2-1.3) mg/dL AST 25 (14-36) U/L ALT 10 (4-34) U/L Alkaline Phosphatase 102 (38-126) U/L Ammonia <9 (<30) umol/L Creatine Kinase 34 (30-135) U/L Troponin I (0.000-0.034) ng/mL Total Protein 6.1 L (6.3-8.2) g/dL Albumin 2.8 L (3.5-5.0) g/dL TSH 3.310 (0.465-4.680) mIU/L Urine Color Urine Appearance (Clear) Urine pH (5.0-8.0) Ur Specific [place] (1.001-1.035) Urine Protein (Negative) Urine Glucose (UA) (Negative) Urine Ketones (Negative) Urine Blood (Negative) Urine Nitrite (Negative) Urine Bilirubin (Negative) Urine Urobilinogen (<2.0) mg/dL Ur Leukocyte Esterase (Negative) Urine Opiates Screen (NotDetected) Ur Oxycodone Screen (NotDetected) Urine Methadone Screen (NotDetected) Ur Propoxyphene Screen (NotDetected) Acetaminophen <10.0 ug/mL Ur Barbiturates Screen (NotDetected) U Tricyclic Antidepress (NotDetected) Ur Phencyclidine Scrn (NotDetected) Ur Amphetamines Screen (NotDetected) U Methamphetamines Scrn (NotDetected) U Benzodiazepines Scrn (NotDetected) Urine Cocaine Screen (NotDetected) U Marijuana (THC) Screen (NotDetected) Serum Alcohol <10 mg/dL 05/28/21 05/28/21 05/28/21 Range/Units 08:19 08:19 09:40 WBC (3.8-10.6) k/uL RBC (3.80-5.40) m/uL Hgb (11.4-16.0) gm/dL Hct (34.0-46.0) % MCV (80.0-100.0) fL MCH (25.0-35.0) pg MCHC (31.0-37.0) g/dL RDW (11.5-15.5) % Plt Count (150-450) k/uL MPV Neutrophils % % Lymphocytes % % Monocytes % % Eosinophils % % Basophils % % Neutrophils # (1.3-7.7) k/uL Lymphocytes # (1.0-4.8) k/uL Monocytes # (0-1.0) k/uL Eosinophils # (0-0.7) k/uL Basophils # (0-0.2) k/uL Manual Slide Review Hypochromasia Poikilocytosis (manual Anisocytosis (manual) Macrocytosis PT (9.0-12.0) sec INR (<1.2) APTT (22.0-30.0) sec VBG pH 7.23 L (7.31-7.41) VBG pCO2 17 L* (37-51) mmHg VBG HCO3 7 L* (24-28) mmol/L Sodium (137-145) mmol/L Potassium (3.5-5.1) mmol/L Chloride (98-107) mmol/L Carbon Dioxide (22-30) mmol/L Anion Gap mmol/L BUN (7-17) mg/dL Creatinine (0.52-1.04) mg/dL Est GFR (CKD-EPI)AfAm (>60 ml/min/1.73 sqM) Est GFR (CKD-EPI)NonAf (>60 ml/min/1.73 sqM) Glucose (74-99) mg/dL POC Glucose (mg/dL) 190 H (75-99) mg/dL POC Glu Sales Systems Engineer ID Radha Jimenez Plasma Lactic Acid Jose (0.7-2.0) mmol/L Calcium (8.4-10.2) mg/dL Magnesium (1.6-2.3) mg/dL Total Bilirubin (0.2-1.3) mg/dL AST (14-36) U/L ALT (4-34) U/L Alkaline Phosphatase (38-126) U/L Ammonia (<30) umol/L Creatine Kinase (30-135) U/L Troponin I 0.013 (0.000-0.034) ng/mL Total Protein (6.3-8.2) g/dL Albumin (3.5-5.0) g/dL TSH (0.465-4.680) mIU/L Urine Color Urine Appearance (Clear) Urine pH (5.0-8.0) Ur Specific [place] (1.001-1.035) Urine Protein (Negative) Urine Glucose (UA) (Negative) Urine Ketones (Negative) Urine Blood (Negative) Urine Nitrite (Negative) Urine Bilirubin (Negative) Urine Urobilinogen (<2.0) mg/dL Ur Leukocyte Esterase (Negative) Urine Opiates Screen (NotDetected) Ur Oxycodone Screen (NotDetected) Urine Methadone Screen (NotDetected) Ur Propoxyphene Screen (NotDetected) Acetaminophen ug/mL Ur Barbiturates Screen (NotDetected) U Tricyclic Antidepress (NotDetected) Ur Phencyclidine Scrn (NotDetected) Ur Amphetamines Screen (NotDetected) U Methamphetamines Scrn (NotDetected) U Benzodiazepines Scrn (NotDetected) Urine Cocaine Screen (NotDetected) U Marijuana (THC) Screen (NotDetected) Serum Alcohol mg/dL Disposition Clinical Impression: Lethargy, Hyperkalemia, Dehydration Disposition: ADMITTED IP TO THIS [facility] Condition: Critical Referrals: Piyush Hendricks MD [Primary Care Provider] - 1-2 days
--- NOTE | 2021-05-28 08:23 | XR ---
EXAMINATION TYPE: XR chest 1V portable DATE OF EXAM: 05/28/2021 COMPARISON: Chest x-ray 05/18/2021 HISTORY: Altered mental status TECHNIQUE: Single frontal view of the chest is obtained. FINDINGS: Cardiac mediastinal silhouette is stable. There is improved aeration at the lung base on t he right. Prominent lung volume may be indicative of underlying COPD. No evident pneumothorax or siza ble effusion. There are overlying leads. Minimal patchy density present at the left costophrenic angl e. Aorta is dense and tortuous. IMPRESSION: Suspect basilar atelectasis.
[2021-05-28 08:26] LABS: Appearance,Urine Clear (Clear); Bilirubin,Urine 1+ (Negative); Blood,Urine Negative (Negative); Color,Urine Yellow; Glucose,Urine (UA) Negative (Negative); Ketones,Urine 2+ (Negative); Leukocyte Esterase,Urine Negative (Negative); Nitrite,Urine Negative (Negative); Protein,Urine Negative (Negative); Specific Gravity,Urine 1.019 (1.001-1.035); Urobilinogen,Urine <2.0 mg/dL (<2.0)
[2021-05-28] MEDS: SODIUM CHLORIDE 0.9% 1,000 ML IV STA ×2 (08:34→09:31)
[2021-05-28 08:39] LABS: Amphetamine Screen,Urine Not Detected (NotDetected); Barbiturate Screen,Urine Not Detected (NotDetected); Benzodiazepines Screen,Urine Detected (NotDetected); Cocaine Screen,Urine Not Detected (NotDetected); Methadone Screen, Urine Not Detected (NotDetected); Opiate Screen,Urine Not Detected (NotDetected); Oxycodone Screen, Urine Detected (NotDetected); Phencyclidine Screen,Urine Not Detected (NotDetected); Tricyclic Antidepressant,Urine Detected (NotDetected); Urn Cannabinoid Scrn Not Detected (NotDetected)
[2021-05-28 08:41] LABS: VBG PH 7.23 (7.31-7.41)
[2021-05-28 08:43] LABS: Basophils # (A) 0.1 k/uL (0-0.2); Basophils % (A) 1 %; Eosinophils # (A) 0.1 k/uL (0-0.7); Eosinophils % (A) 1 %; HCT 41.1 % (34.0-46.0); Hypochromasia Marked; Lymphocytes # (A) 1.3 k/uL (1.0-4.8); Lymphocytes % (A) 18 %; MCH 35.6 pg (25.0-35.0); MCHC 29.3 g/dL (31.0-37.0); Macrocytosis Marked; Mean Platelet Volume 8.6; Monocytes # (A) 0.4 k/uL (0-1.0); Monocytes % (A) 5 %; Neutrophils # (A) 5.3 k/uL (1.3-7.7); Neutrophils % (A) 73 %; Platelet Count 218 k/uL (150-450); RBC 3.38 m/uL (3.80-5.40); RDW 12.8 % (11.5-15.5); WBC 7.2 k/uL (3.8-10.6)
[2021-05-28 08:49] LABS: MCV 121.6 fL (80.0-100.0)
[2021-05-28 08:50] LABS: ALT 10 U/L (4-34); AST 25 U/L (14-36); Acetaminophen <10.0 ug/mL; African American GFR (CKD) 37 (>60 ml/min/1.73 sqM); Albumin 2.8 g/dL (3.5-5.0); Alcohol <10 mg/dL; Alkaline Phosphatase 102 U/L (38-126); Anion Gap 18 mmol/L; Blood Urea Nitrogen 23 mg/dL (7-17); Calcium 8.5 mg/dL (8.4-10.2); Chloride 116 mmol/L (98-107); Creatine Kinase 34 U/L (30-135); Glucose 71 mg/dL (74-99); Non-African American GFR(CKD) 33 (>60 ml/min/1.73 sqM); Sodium 142 mmol/L (137-145); Total Bilirubin 0.6 mg/dL (0.2-1.3); Total Protein 6.1 g/dL (6.3-8.2)
[2021-05-28] MEDS ORDERED: DEXTROSE 50% SYRINGE 50 ML IVP STA (08:50)
[2021-05-28 08:54] LABS: Carbon Dioxide 8 mmol/L (22-30); Partial Thromboplastin Time 22.5 sec (22.0-30.0)
[2021-05-28 08:57] LABS: Potassium 6.1 mmol/L (3.5-5.1)
[2021-05-28] MEDS ORDERED: CALCIUM GLUCONATE 2 GM in SODIUM CHLORIDE 0.9% 100 ML IVPB ONE (08:59)
[2021-05-28 09:01] LABS: Lactic Acid, Venous 1.7 mmol/L (0.7-2.0)
[2021-05-28] MEDS ORDERED: FUROSEMIDE 10 MG/ML 4 ML VIAL IV STA (09:02)
[2021-05-28 09:10] LABS: Anisocytosis (M) Present; Poikilocytosis (M) Present
[2021-05-28] MEDS ORDERED: INSULIN REGULAR 100 UNIT/ML VIAL (IV) IV ONE (09:30)
--- NOTE | 2021-05-28 09:39 | CT ---
EXAMINATION TYPE: CT brain wo con DATE OF EXAM: 05/28/2021 COMPARISON: CT brain 05/17/2021 HISTORY: AMS CT DLP: 1118.4 mGycm Automated exposure control for dose reduction was used. Helical imaging through the brain. FINDINGS: There is no interval change. There is no hemorrhage or hydrocephalus. Cortical atrophy is noted. Danielle ventricular white matter shows patchy low-attenuation, focal low attenuation also present in the head of the caudate on the right is unchanged. Orbits show symmetric appearance. There are cerebral vascu lar calcifications present. Inflammatory changes are noted within the sphenoid sinus, left maxillary sinus, frontal sinus and ethmoid air cells. The calvarium is intact. Mastoids are well aerated. IMPRESSION: SINUS DISEASE. CHRONIC SMALL VESSEL ISCHEMIC CHANGES IN AGE-RELATED ATROPHY. CONSIDER FOLLOW-UP BRAIN MRI INDICATED.
[2021-05-28 09:41] LABS: Glucose,Whole Blood 190 mg/dL (75-99)
--- NOTE | 2021-05-28 09:57 | CT ---
EXAMINATION TYPE: CT abdomen pelvis wo con DATE OF EXAM: 05/28/2021 COMPARISON: None HISTORY: Abdominal mass CT DLP: 377.3 mGycm Automated exposure control for dose reduction was used. TECHNIQUE: Helical acquisition of images from the lung bases through the pelvis. FINDINGS: Lack of intravenous contrast could compromise sensitivity of the exam. There is artifact an d motion on the exam LUNG BASES: Some minimal basilar atelectasis or scarring is noted on the left, no pleural effusion, t here is a small pericardial effusion measuring approximately 13 mm in greatest thickness anteriorly. AORTA: No significant abnormality is appreciated. LIVER/GB: Some dependent high attenuation within the gallbladder may represent tumefactive sludge. PANCREAS: No significant abnormality is seen. SPLEEN: No significant abnormality is seen. ADRENALS: No significant abnormality is seen. KIDNEYS: There are calcifications associated with the renal cortex on the left, patient likely with u nderlying medical renal disease, cortical cyst present on the right, no hydronephrosis REPRODUCTIVE ORGANS: No significant abnormality is seen. URINARY BLADDER: Catheterized, air present within the urinary bladder. BOWEL: Colonic interposition noted anterior to the left lobe of the liver. Small bowel folds show so me areas of wall thickening, fluid-filled origins of bowel are noted. Some high dense material presen t within the: in the right hemiabdomen may be due to radiodense medication. FREE AIR: No Free Air is visible. ASCITES: None visible. PELVIC ADENOPATHY: None visualized. RETROPERITONEAL ADENOPATHY: No Retroperitoneal Adenopathy visible. OSSEOUS STRUCTURES: No significant abnormality is seen. IMPRESSION: NONCONTRAST EXAM. LIKELY THERE IS TUMEFACTIVE SLUDGE WITHIN THE GALLBLADDER, MEDICAL RENAL DISEASE. C ORRELATE FOR POSSIBLE ENTERITIS. Small pericardial effusion is described.
[2021-05-28] MEDS ORDERED: NALOXONE 0.4 MG/ML 1 ML VIAL IV PRN (10:50)
[2021-05-28] MEDS ORDERED: THIAMINE 100 MG/ML 2 ML VIAL IVP ONE (11:00)
[2021-05-28 13:09] LABS: Albumin 2.6 g/dL (3.5-5.0); Calcium 8.2 mg/dL (8.4-10.2); Potassium 4.8 mmol/L (3.5-5.1); Total Bilirubin 0.5 mg/dL (0.2-1.3); Total Protein 5.7 g/dL (6.3-8.2)
[2021-05-28 13:40] LABS: Glucose,Whole Blood 128 mg/dL (75-99)
[2021-05-28 14:20] LABS: Glucose,Whole Blood 121 mg/dL (75-99)
[2021-05-28] MEDS: DEXTROSE 5% IN WATER 1,000 ML with SODIUM BICARB (1 MEQ/ML) 150 ML IV SCH (14:35)
[2021-05-28] MEDS: SODIUM CHLORIDE 0.9% 1,000 ML IV SCH ×2 (15:18→20:00)
[2021-05-28] MEDS ORDERED: ALBUTEROL NEBULIZED 2.5 MG/3 ML INHALATION PRN (15:34)
[2021-05-28] MEDS ORDERED: NICOTINE 21MG/24HR PATCH TRANSDERM PRN (15:34)
[2021-05-28] MEDS ORDERED: ONDANSETRON ODT 4 MG TAB PO PRN (15:34)
[2021-05-28] MEDS ORDERED: HYDROcodone/APAP 5-325MG 1 EACH TAB PO PRN (15:34)
[2021-05-28 16:48] LABS: Glucose,Whole Blood 153 mg/dL (75-99)
[2021-05-28] MEDS: PANTOPRAZOLE 40 MG TABLET PO SCH (17:06)
[2021-05-28] MEDS ORDERED: THIAMINE 100 MG TAB PO SCH (17:30)
--- NOTE | 2021-05-28 18:18 | P.HPIM ---
History of Present Illness H&P Date: 05/28/21 Chief Complaint: Lethargic Chief Complaint: Weak tired This is a 71-year-old patient who follows with visiting physicians Dr. Hendricks. Chronic stable medical conditions include DVT, GERD, hypertension, memory impairment, alcohol use disorder. Peripheral neuropathy alcoholic hepatitis, Boland's esophagitis. Patient recently in the hospital from May 17 through May 19. Patient had been drinking anywhere from 5-8 screwdrivers a day. drinking for any years. may eat 1 meal a day. Was spending spends her time in the bed. has a bedside commode. Patient They moved from [place] few months ago. Their son and his live nearby. smokes a pack a day. Was Admitted with acute on chronic medical debility from chronic alcoholism. P cooper calorie malnutrition. Alcohol use disorder. Treated with CIWA scale Valium. Given multivitamins. IV fluids. Diagnosed to have alcohol induced dementia. Lengthy discussion was held with the about complete cessation of alcohol. Patient presented to ER on this occasion weak and tired. I spoke to the patient's Ramon on the phone. Since return home patient was not asking for food but he could prepare a meal and keep him from before showed 8. She would have arguments with him about alcohol but he was not buying any for her. For last 2 days he noticed that the patient had been weak on the left side and not really communicating much. Not even taking her pills. From the patient just open her eyes but not really talk. May make some sounds. Review of systems: Could not obtain this patient is currently not communicating Past medical history to include: DVT, GERD, hypertension, alcohol use disorder, peripheral neuropathy, hallucinations, pancytopenia, alcoholic hepatitis, Boland's esophagitis, alcohol-induced dementia Social history: Up to a week ago was Drinks anywhere from 5-8 screwdrivers a day. Smokes a pack a day since 1967. Lives with . Uses a bedside commode. Family history: Heart problems Physical examination: VITAL SIGNS: 90, 69, 20, 108/66, 94% room air GENERAL: BMI 20, laying in bed, loss of subcutaneous fat and muscle mass. EYES: Pupils equal. Conjunctiva palel. HEENT: External appearance of nose and ears normal, oral cavity dry mucous membranes. NECK: JVD not raised; masses not palpable. HEART: First and second heart sounds are normal; no edema. LUNGS: Respiratory rate normal; decreased breath sounds. ABDOMEN: Soft, nontender, liver spleen not palpable, no masses palpable. PSYCH: [Not answering questions l. MUSCULOSKELETAL:No Clubbing/cyanosis; loss of muscle mass. Evidence of OA NEUROLOGICAL: Patient occasionally opening her eyes. Some left-sided neglect. Decreased bone on the left side. Decreased reflex on the left side. Plantar acute vocal.. LYMPHATICS: No lymph nodes palpable in the axilla and neck INVESTIGATIONS, reviewed in the clinical context: Sodium 142 potassium 4.8 by cup 7 BUN 24 creatinine 1.51 albumin 2.6 Urine drug screen positive for oxycodone, tricyclic antidepressant, b enzodiazepine EKG tracing personally reviewed by me-normal sinus rhythm. Nonspecific T-wave changes. CT abdomen pelvis without contrast: Calcification associated with visual cortex and left. CT brain without contrast: Sinus disease. Chronic small vessel ischemic changes and age-related atrophy. Chest x-ray film personally reviewed by me-hyperinflated From last admission 2-D echocardiogram: EF 55-60%. Moderate mitral regurgitation. Creatinine on May 17: 0.79 Assessment and plan: -Acute stroke with left paresis. Also affecting the speech. Neuro checks. MRI brain. Carotid Doppler. Consult speech. -chronic medical debility from poor oral intake. Long-standing alcoholic. Poor nutritional status. Malnutrition Fall precautions. PT OT. . Bed rest. -Alcohol use disorder. Last drink about 10 days ago Thiamine. Multivitamin. -Severe protein calorie malnutrition from poor oral intake Evaluate swallowing -Alcohol-induced dementia -Chronic DVT Eliquis. -Moderate mitral regurgitation Follow clinically -Macrocytic anemia secondary to poor nutritional status Element of iron deficiency anemia. Iron supplement. -GERD Protonix -Nicotine dependence Nicotine patch -Acute kidney injury, prerenal. Patient's creatinine was 0.59 on 05/17/2021 IV fluids -Severe metabolic acidosis Bicarbonate drip MRi brain. Carotid Doppler. PTOT. Some recent therapy. Aspiration precautions. Fall precautions. Try pured diet with nursing bedside assessment. Discussed with nurse. Prognosis guarded. Will discuss CODE STATUS with the . Past Medical History Past Medical History: Deep Vein Thrombosis (DVT), GERD/Reflux, Hypertension, Memory Impairment Additional Past Medical History / Comment(s): ETOH abuse/spouse states memory is declining and pt hallucinates at night time/sees mice on the celing, DVT L leg x2 and blood clot to abdomin, recent healed frature R 5th toe, gait dysfunction/pt stays mostly in bed and uses a bsc, chronic pain/neuropathy bilateral feet/legs, past medical hx documents pancytopenia/hypomagnesemia/hypocalcemia/elevated AST-mild alcoholic hepatitis and possible boland's esophagitis but spouse unaware of these things. History of Any Multi-Drug Resistant Organisms: None Reported Additional Past Surgical History / Comment(s): egd,precancer esophagus Past Anesthesia/Blood Transfusion Reactions: No Reported Reaction Past Psychological History: Depression Additional Psychological History / Comment(s): Pt resides with her spouse. He states she spends most of her time in bed/sleeping. She ambulates a couple steps to a bsc. Spouse is her caregiver. She has a walker but refuses to use it. Spouse states she no longer bathes/dresses self. Smoking Status: Current every day smoker Past Alcohol Use History: Daily, Heavy Additional Past Alcohol Use History / Comment(s): Pt started smoking in 1966 and is a ppd smoker. She drinks vodka and orange juice/amount varies depending on how much she is sleeping. Spouse states he believes she is depressed lately over her declining health but states she has never been suicidal to his knowledge. Past Drug Use History: None Reported - Past Family History Mother Additional Family Medical History / Comment(s): Heart problems. Father Family Medical History: No Reported History Medications and Allergies Home Medications Medication Instructions Recorded Confirmed Type Apixaban [Eliquis] 5 mg PO BID 03/16/21 05/28/21 History Folic Acid 1 mg PO DAILY #30 tablet 03/18/21 05/28/21 Rx Metoprolol Succinate (ER) [Toprol 25 mg PO DAILY 30 Days #30 tab 03/18/21 05/28/21 Rx XL] HYDROcodone/APAP 5-325MG [[place] 1 tab PO Q6HR PRN 05/17/21 05/28/21 History 5-325] LORazepam [Ativan] 1 mg PO BID PRN 05/17/21 05/28/21 History Ondansetron Odt [Zofran ODT] 4 mg PO Q8HR PRN 05/17/21 05/28/21 History Pantoprazole [Protonix] 40 mg PO DAILY 05/17/21 05/28/21 History Doxepin [SINEquan] 10 mg PO HS #30 capsule 05/19/21 05/28/21 Rx Magnesium Oxide [Mag-Ox] 400 mg PO BID #30 tab 05/19/21 05/28/21 Rx Naltrexone HCl [Revia] 50 mg PO DAILY #30 tablet 05/19/21 05/28/21 Rx Thiamine [Vitamin B-1] 100 mg PO BID-W/MEALS #30 tab 05/19/21 05/28/21 Rx Albuterol Inhaler [Ventolin Hfa 2 puff INHALATION RT-QID PRN 05/28/21 05/28/21 History Inhaler] Disulfiram See Taper PO DIRECTED 05/28/21 05/28/21 History Multivitamins, Thera [Multivitamin 1 tab PO DAILY 05/28/21 05/28/21 History (formulary)] Nicotine 21Mg/24Hr Patch [Habitrol] 1 patch TRANSDERM DAILY PRN 05/28/21 05/28/21 History Allergies Allergy/AdvReac Type Severity Reaction Status Date / Time Sulfa (Sulfonamide Allergy Rash/Hives Verified 05/28/21 09:12 Antibiotics) sulfur dioxide Allergy Rash/Hives Verified 05/28/21 09:12 acetaminophen [From Tylenol] AdvReac STOMACH Verified 05/28/21 09:12 PAINS aspirin AdvReac STOMACH Verified 05/28/21 09:12 PAINS Physical Exam Vitals: Vital Signs Temp Pulse Pulse Resp BP BP Pulse Ox 05/28/21 14:09 85 18 101/58 98 05/28/21 12:00 16 107/57 98 05/28/21 11:30 18 109/72 98 05/28/21 11:00 16 101/61 93 L 05/28/21 10:30 18 107/53 98 05/28/21 10:00 16 119/64 99 05/28/21 09:30 16 118/56 100 05/28/21 09:00 86 15 119/69 05/28/21 08:30 97 22 106/67 05/28/21 08:18 97 19 102/67 05/28/21 07:18 97 F L 82 16 102/67 100 Intake and Output 05/27/21 05/28/21 05/28/21 22:59 06:59 14:59 Other: Weight 54.431 kg Results CBC & Chem 7: 05/28/21 08:19 05/28/21 12:19 Labs: Abnormal Lab Results - Last 24 Hours (Table) 05/28/21 05/28/21 05/28/21 Range/Units 07:36 08:10 08:19 RBC 3.38 L (3.80-5.40) m/uL MCV 121.6 H D (80.0-100.0) fL MCH 35.6 H (25.0-35.0) pg MCHC 29.3 L (31.0-37.0) g/dL Macrocytosis Marked A VBG pH (7.31-7.41) VBG pCO2 (37-51) mmHg VBG HCO3 (24-28) mmol/L Potassium (3.5-5.1) mmol/L Chloride (98-107) mmol/L Carbon Dioxide (22-30) mmol/L BUN (7-17) mg/dL Creatinine (0.52-1.04) mg/dL Glucose (74-99) mg/dL POC Glucose (mg/dL) 71 L (75-99) mg/dL Osmolality (280-301) mosm/kg Calcium (8.4-10.2) mg/dL Total Protein (6.3-8.2) g/dL Albumin (3.5-5.0) g/dL Urine Ketones 2+ H (Negative) Urine Bilirubin 1+ H (Negative) Ur Oxycodone Screen Detected H (NotDetected) U Tricyclic Antidepress Detected H (NotDetected) U Benzodiazepines Scrn Detected H (NotDetected) 05/28/21 05/28/21 05/28/21 Range/Units 08:19 08:19 08:19 RBC (3.80-5.40) m/uL MCV (80.0-100.0) fL MCH (25.0-35.0) pg MCHC (31.0-37.0) g/dL Macrocytosis VBG pH 7.23 L (7.31-7.41) VBG pCO2 17 L* (37-51) mmHg VBG HCO3 7 L* (24-28) mmol/L Potassium 6.1 H* (3.5-5.1) mmol/L Chloride 116 H (98-107) mmol/L Carbon Dioxide 8 L* (22-30) mmol/L BUN 23 H (7-17) mg/dL Creatinine 1.60 H (0.52-1.04) mg/dL Glucose 71 L (74-99) mg/dL POC Glucose (mg/dL) (75-99) mg/dL Osmolality 309 H (280-301) mosm/kg Calcium (8.4-10.2) mg/dL Total Protein 6.1 L (6.3-8.2) g/dL Albumin 2.8 L (3.5-5.0) g/dL Urine Ketones (Negative) Urine Bilirubin (Negative) Ur Oxycodone Screen (NotDetected) U Tricyclic Antidepress (NotDetected) U Benzodiazepines Scrn (NotDetected) 05/28/21 05/28/21 05/28/21 Range/Units 09:40 12:19 13:38 RBC (3.80-5.40) m/uL MCV (80.0-100.0) fL MCH (25.0-35.0) pg MCHC (31.0-37.0) g/dL Macrocytosis VBG pH (7.31-7.41) VBG pCO2 (37-51) mmHg VBG HCO3 (24-28) mmol/L Potassium (3.5-5.1) mmol/L Chloride 118 H (98-107) mmol/L Carbon Dioxide 7 L* (22-30) mmol/L BUN 24 H (7-17) mg/dL Creatinine 1.51 H (0.52-1.04) mg/dL Glucose 117 H (74-99) mg/dL POC Glucose (mg/dL) 190 H 128 H (75-99) mg/dL Osmolality (280-301) mosm/kg Calcium 8.2 L (8.4-10.2) mg/dL Total Protein 5.7 L (6.3-8.2) g/dL Albumin 2.6 L (3.5-5.0) g/dL Urine Ketones (Negative) Urine Bilirubin (Negative) Ur Oxycodone Screen (NotDetected) U Tricyclic Antidepress (NotDetected) U Benzodiazepines Scrn (NotDetected) 05/28/21 Range/Units 14:18 RBC (3.80-5.40) m/uL MCV (80.0-100.0) fL MCH (25.0-35.0) pg MCHC (31.0-37.0) g/dL Macrocytosis VBG pH (7.31-7.41) VBG pCO2 (37-51) mmHg VBG HCO3 (24-28) mmol/L Potassium (3.5-5.1) mmol/L Chloride (98-107) mmol/L Carbon Dioxide (22-30) mmol/L BUN (7-17) mg/dL Creatinine (0.52-1.04) mg/dL Glucose (74-99) mg/dL POC Glucose (mg/dL) 121 H (75-99) mg/dL Osmolality (280-301) mosm/kg Calcium (8.4-10.2) mg/dL Total Protein (6.3-8.2) g/dL Albumin (3.5-5.0) g/dL Urine Ketones (Negative) Urine Bilirubin (Negative) Ur Oxycodone Screen (NotDetected) U Tricyclic Antidepress (NotDetected) U Benzodiazepines Scrn (NotDetected) Thrombosis Risk Factor Assmnt - Choose All That Apply Any of the Below Risk Factors Present?: Yes Other Risk Factors: Yes Each Risk Factor Represents 2 Points: Age 61-74 years Thrombosis Risk Factor Assessment Total Risk Factor Score: 2 Thrombosis Risk Factor Assessment Level: Low Risk
[2021-05-28] MEDS: APIXABAN 5 MG TAB PO SCH (20:00)
[2021-05-28] MEDS: DOXEPIN 10 MG CAP PO SCH (20:00)
[2021-05-28] MEDS: MAGNESIUM OXIDE 400 MG TAB PO SCH (20:00)
[2021-05-28 20:01] LABS: Glucose,Whole Blood 193 mg/dL (75-99)
[2021-05-29] MEDS: SODIUM CHLORIDE 0.9% 1,000 ML IV SCH ×3 (02:12→19:39)
[2021-05-29] MEDS: DEXTROSE 5% IN WATER 1,000 ML with SODIUM BICARB (1 MEQ/ML) 150 ML IV SCH ×2 (02:12→16:26)
[2021-05-29 06:36] LABS: Glucose,Whole Blood 185 mg/dL (75-99)
[2021-05-29] MEDS ORDERED: NALTREXONE HCL 50 MG TAB PO SCH (09:00)
[2021-05-29] MEDS: FOLIC ACID 1 MG TAB PO SCH (10:22)
[2021-05-29] MEDS: MAGNESIUM OXIDE 400 MG TAB PO SCH ×2 (10:22→20:35)
[2021-05-29] MEDS: APIXABAN 5 MG TAB PO SCH ×2 (10:22→20:35)
[2021-05-29] MEDS: PANTOPRAZOLE 40 MG TABLET PO SCH (10:23)
[2021-05-29] MEDS: METOPROLOL SUCCINATE (ER) 25 MG TAB.ER.24H PO SCH (10:23)
[2021-05-29] MEDS: MULTIVITAMINS, THERA 1 EACH TAB PO SCH (10:23)
[2021-05-29] MEDS: THIAMINE 100 MG/ML 2 ML VIAL IVP SCH (10:23)
--- NOTE | 2021-05-29 10:50 | US ---
EXAMINATION TYPE: US carotid duplex BILAT DATE OF EXAM: 05/29/2021 COMPARISON: NONE CLINICAL HISTORY: left weakness. left side weekness EXAM MEASUREMENTS: RIGHT: Peak Systolic Velocity (PSV) cm/sec ----- Right CCA: 91.5 ----- Right ICA: 82.7 ----- Right ECA: 69.7 ICA/CCA ratio: 0.9 RIGHT: End Diastole cm/sec ----- Right CCA: 31.8 ----- Right ICA: 27.5 ----- Right ECA: 15.9 LEFT: Peak Systolic Velocity (PSV) cm/sec ----- Left CCA: 85.6 ----- Left ICA: 101.6 ----- Left ECA: 34.7 ICA/CCA ratio: 1.2 LEFT: End Diastole cm/sec ----- Left CCA: 37.7 ----- Left ICA: 40.6 ----- Left ECA: 7.1 VERTEBRALS (direction of flow): Right Vertebral: Antegrade Left Vertebral: Antegrade Rhythm: Question arrhythmia Bilateral plaque seen. No significant stenosis seen Grayscale, color Doppler, spectral Doppler imaging performed. Waveform analysis does not show signifi cant stenosis of the internal carotid arteries. IMPRESSION: No hemodynamic significant stenosis of the proximal internal carotid arteries by Doppler criteria, an indirect measurement of carotid stenosis Criteria for Assigning % of Stenosis / Diameter reduction (Estimation based on the indirect measurements of the internal carotid artery velocities (ICA PSV). 1. Normal (no stenosis)=ICA PSV < 125 cm/s: ratio < 2.0: ICA EDV<40 cm/s. 2. Less than 50% stenosis=ICA PSV < 125 cm/s: ratio < 2.0: ICA EDV<40 cm/s. 3. 50 to 69% stenosis=ICA PSV of 125 to 230 cm/s: ration 2.0 ? 4.0: ICA EDV 40-100 cm/s. 4. Greater than 70% stenosis to near occlusion= ICA PSV > 230 cm/s: ratio > 4.0: ICA EDV > 100 cm/s. 5. Near occlusion= ICA PSV velocities may be low or undetectable: variable ratio and ICA EDV. 6. Total occlusion=unable to detect flow.
[2021-05-29 11:34] LABS: Glucose,Whole Blood 162 mg/dL (75-99)
[2021-05-29] MEDS ORDERED: VANCOMYCIN IV PER PHARMACY 1 EACH MISC MISCELLANE PRN (14:57)
[2021-05-29] MEDS ORDERED: VANCOMYCIN 1,000 MG in SODIUM CHLORIDE 0.9% 250 ML IVPB STA (15:04)
[2021-05-29 16:22] LABS: Glucose,Whole Blood 196 mg/dL (75-99)
[2021-05-29 16:58] LABS: Basophils % (A) 0 %; Eosinophils # (A) 0.2 k/uL (0-0.7); Eosinophils % (A) 3 %; HCT 29.1 % (34.0-46.0); Lymphocytes # (A) 1.2 k/uL (1.0-4.8); Lymphocytes % (A) 21 %; MCH 36.3 pg (25.0-35.0); MCHC 33.2 g/dL (31.0-37.0); Macrocytosis Moderate; Mean Platelet Volume 8.1; Monocytes # (A) 0.3 k/uL (0-1.0); Monocytes % (A) 5 %; Neutrophils % (A) 70 %; Platelet Count 179 k/uL (150-450); RBC 2.67 m/uL (3.80-5.40); RDW 12.5 % (11.5-15.5); WBC 5.8 k/uL (3.8-10.6)
[2021-05-29 17:13] LABS: HGB 9.7 gm/dL (11.4-16.0); MCV 109.2 fL (80.0-100.0)
[2021-05-29 17:24] LABS: Calcium 7.5 mg/dL (8.4-10.2); Potassium 3.8 mmol/L (3.5-5.1)
--- NOTE | 2021-05-29 17:56 | P.PN ---
Progress Note - Text Progress Note Date: 05/29/21 Chief Complaint: Weak tired This is a 71-year-old patient who follows with visiting physicians Dr. Hendricks. Chronic stable medical conditions include DVT, GERD, hypertension, memory impairment, alcohol use disorder. Peripheral neuropathy alcoholic hepatitis, Hansen's esophagitis. Patient recently in the hospital from May 17 through May 19. Patient had been drinking anywhere from 5-8 screwdrivers a day. drinking for any years. may eat 1 meal a day. Was spending spends her time in the bed. has a bedside commode. Patient They moved from [place] few months ago. Their son and his live nearby. smokes a pack a day. Was Admitted with acute on chronic medical debility from chronic alcoholism. Protein calorie malnutrition. Alcohol use disorder. Treated with CIWA scale Valium. Given multivitamins. IV fluids. Diagnosed to have alcohol induced dementia. Lengthy discussion was held with the about complete cessation of alcohol. Patient presented to ER on this occasion weak and tired. I spoke to the patient's Ramon on the phone. Since return home patient was not asking for food but he could prepare a meal and keep him from before showed 8. She would have arguments with him about alcohol but he was not buying any for her. For last 2 days he noticed that the patient had been weak on the left side and not really communicating much. Not even taking her pills. From the patient just open her eyes but not really talk. May make some sounds. May 29: Patient really does not communicate. Not able to eat. Remains weak on the left side. and son at the bedside. Discussed with them. Patient be made DO NOT RESUSCITATE. Getting IV fluids. With bicarbonate drip. Prognosis guarded. Hypothermic. Heating blanket. Poor urine output. Blood cultures positive for gram-positive cocci in clusters. Vancomycin started Active Medications Hydrocodone Bitart/Acetaminophen (Hydrocodone/Apap 5-325mg 1 Each Tab) 1 each PO Q6HR PRN PRN Reason: Pain Albuterol Sulfate (Albuterol Nebulized 2.5 Mg/3 Ml) 2.5 mg INHALATION RT-QID PRN PRN Reason: Shortness Of Breath Apixaban (Apixaban 5 Mg Tab) 5 mg PO BID GWYN; Protocol Last Admin: 05/29/21 10:22 Dose: Not Given Documented by: Doxepin HCl (Doxepin 10 Mg Cap) 10 mg PO HS [facility] Last Admin: 05/28/21 20:00 Dose: Not Given Documented by: Folic Acid (Folic Acid 1 Mg Tab) 1 mg PO DAILY [facility] Last Admin: 05/29/21 10:22 Dose: Not Given Documented by: Sodium Bicarbonate 150 ml/ (Dextrose/Water) 1,150 mls @ 100 mls/hr IV .[id number] [facility] Last Admin: 05/29/21 16:26 Dose: 100 mls/hr Documented by: Sodium Chloride (Saline 0.9%) 1,000 mls @ 130 mls/hr IV .[id number] [facility] Last Admin: 05/29/21 16:30 Dose: Not Given Documented by: Magnesium Oxide (Magnesium Oxide 400 Mg Tab) 400 mg PO BID [facility] Last Admin: 05/29/21 10:22 Dose: Not Given Documented by: Metoprolol Succinate (Metoprolol Succinate (Er) 25 Mg Tab.Er.24h) 25 mg PO DAILY [facility] Last Admin: 05/29/21 10:23 Dose: Not Given Documented by: Miscellaneous Information (Vancomycin Iv Per Pharmacy 1 Each Misc) 1 each MISCELLANE DIRECTED PRN; Protocol PRN Reason: Per Protocol Multivitamins (Multivitamins, Thera 1 Each Tab) 1 each PO DAILY [facility] Last Admin: 05/29/21 10:23 Dose: Not Given Documented by: Naloxone HCl (Naloxone 0.4 Mg/Ml 1 Ml Vial) 0.2 mg IV Q2M PRN PRN Reason: Opioid Reversal Nicotine (Nicotine 21mg/24hr Patch) 1 patch TRANSDERM DAILY PRN PRN Reason: Nicotine Cravings Ondansetron HCl (Ondansetron Odt 4 Mg Tab) 4 mg PO Q8HR PRN PRN Reason: Nausea Pantoprazole Sodium (Pantoprazole 40 Mg Tablet) 40 mg PO DAILY [facility] Last Admin: 05/29/21 10:23 Dose: Not Given Documented by: Thiamine HCl (Thiamine 100 Mg/Ml 2 Ml Vial) 50 mg IVP DAILY [facility] Last Admin: 05/29/21 10:23 Dose: Not Given Documented by: Past medical history to include: DVT, GERD, hypertension, alcohol use disorder, peripheral neuropathy, hallucinations, pancytopenia, alcoholic hepatitis, Hansen's esophagitis, alcohol-induced dementia Social history: Up to a week ago was Drinks anywhere from 5-8 screwdrivers a day. Smokes a pack a day since 1967. Lives with . Uses a bedside commode. Family history: Heart problems Physical examination: VITAL SIGNS: 95.4, 94, 18, 1129 bradycardia, 100% room air GENERAL: BMI 20, laying in bed, loss of subcutaneous fat and muscle mass. EYES: Pupils equal. Conjunctiva pale. HEENT: External appearance of nose and ears normal, oral cavity dry mucous membranes. NECK: JVD not raised; masses not palpable. HEART: First and second heart sounds are normal; no edema. LUNGS: Respiratory rate normal; decreased breath sounds. ABDOMEN: Soft, nontender, liver spleen not palpable, no masses palpable. PSYCH: [Not answering questions l. MUSCULOSKELETAL:No Clubbing/cyanosis; loss of muscle mass. Evidence of OA NEUROLOGICAL: Patient occasionally opening her eyes. Some left-sided neglect. Decreased power on the left side. Increased knee reflex on the left side. Plantar equi vocal.. LYMPHATICS: No lymph nodes palpable in the axilla and neck INVESTIGATIONS, reviewed in the clinical context: May 29: White count 5.8 hemoglobin 9.7 platelets 179 potassium 3.8 BUN 27 creatinine 1.41 Blood culture positive for gram-positive clusters Carotid Doppler: Unremarkable Sodium 142 potassium 4.8 by cup 7 BUN 24 creatinine 1.51 albumin 2.6 Urine drug screen positive for oxycodone, tricyclic antidepressant, benzodiazepine EKG tracing personally reviewed by me-normal sinus rhythm. Nonspecific T-wave changes. CT abdomen pelvis without contrast: Calcification associated with visual cortex and left. CT brain without contrast: Sinus disease. Chronic small vessel ischemic changes and age-related atrophy. Chest x-ray film personally reviewed by me-hyperinflated From last admission 2-D echocardiogram: EF 55-60%. Moderate mitral regurgitation. Creatinine on May 17: 0.79 Assessment and plan: -Acute stroke with left paresis. Also affecting the speech. Neuro checks. MRI brain. Carotid Doppler. Consult speech. -chronic medical debility from poor oral intake. Long-standing alcoholic. Poor nutritional status. Malnutrition Fall precautions. PT OT. . Bed rest. -Alcohol use disorder. Last drink about 10 days ago Thiamine. Multivitamin. -Sepsis with blood cultures positive for gram-positive clusters Started on vancomycin -Severe protein calorie malnutrition from poor oral intake Evaluate swallowing -Alcohol-induced dementia -COPD, asymptomatic and a smoker -Chronic DVT Eliquis. -Moderate mitral regurgitation Follow clinically -Macrocytic anemia secondary to poor nutritional status Element of iron deficiency anemia. Iron supplement. -GERD Protonix -Nicotine dependence Nicotine patch -Acute kidney injury, prerenal. Patient's creatinine was 0.59 on 05/17/2021: Slow to respond IV fluids -Severe metabolic acidosis Bicarbonate drip -DO NOT RESUSCITATE MRi brain. Aspiration precautions. Nothing by mouth. IV fluids with bicarbonate drip. Pending MRI. Made DO NOT RESUSCITATE patient. Advanced care planning: Patient's overall condition was discussed with patient's son and the at the bedside. Patient has alcohol-induced dementia poor nutritional status, very frail now with acute stroke and sepsis. Not able to speak nor eat. Patient's family decided to proceed with DO NOT RESUSCITATE. No artificial feeding. We'll see how the patient does with current treatment plan. Time spent for a ACP: 25 minutes
[2021-05-29 20:03] LABS: Glucose,Whole Blood 202 mg/dL (75-99)
[2021-05-29] MEDS: DOXEPIN 10 MG CAP PO SCH (20:35)
[2021-05-29] MEDS: INSULIN ASPART (NovoLOG) 100 UNIT/ML VIAL SQ SCH (21:11)
[2021-05-30] MEDS: SODIUM CHLORIDE 0.9% 1,000 ML IV SCH ×2 (01:15→07:42)
[2021-05-30] MEDS: DEXTROSE 5% IN WATER 1,000 ML with SODIUM BICARB (1 MEQ/ML) 150 ML IV SCH ×3 (01:15→20:22)
[2021-05-30] MEDS ORDERED: VANCOMYCIN 1,000 MG in SODIUM CHLORIDE 0.9% 250 ML IVPB SCH (04:00)
[2021-05-30 05:51] LABS: Glucose,Whole Blood 189 mg/dL (75-99)
[2021-05-30] MEDS: INSULIN ASPART (NovoLOG) 100 UNIT/ML VIAL SQ SCH ×4 (06:37→20:22)
[2021-05-30 08:55] LABS: Basophils % (A) 1 %; Eosinophils # (A) 0.2 k/uL (0-0.7); Eosinophils % (A) 4 %; HCT 35.2 % (34.0-46.0); HGB 11.4 gm/dL (11.4-16.0); Hypochromasia Slight; Lymphocytes # (A) 1.5 k/uL (1.0-4.8); Lymphocytes % (A) 26 %; MCH 35.9 pg (25.0-35.0); MCHC 32.4 g/dL (31.0-37.0); MCV 110.7 fL (80.0-100.0); Macrocytosis Marked; Mean Platelet Volume 8.5; Monocytes # (A) 0.4 k/uL (0-1.0); Monocytes % (A) 7 %; Neutrophils # (A) 3.5 k/uL (1.3-7.7); Neutrophils % (A) 60 %; Platelet Count 141 k/uL (150-450); RBC 3.18 m/uL (3.80-5.40); RDW 12.6 % (11.5-15.5); WBC 5.8 k/uL (3.8-10.6)
[2021-05-30] MEDS: FOLIC ACID 1 MG TAB PO SCH (11:02)
[2021-05-30] MEDS: MAGNESIUM OXIDE 400 MG TAB PO SCH ×2 (11:02→20:13)
[2021-05-30] MEDS: APIXABAN 5 MG TAB PO SCH ×2 (11:02→20:13)
[2021-05-30] MEDS: THIAMINE 100 MG/ML 2 ML VIAL IVP SCH (11:02)
[2021-05-30] MEDS: MULTIVITAMINS, THERA 1 EACH TAB PO SCH (11:02)
[2021-05-30] MEDS: PANTOPRAZOLE 40 MG TABLET PO SCH (11:02)
[2021-05-30] MEDS: METOPROLOL SUCCINATE (ER) 25 MG TAB.ER.24H PO SCH (11:02)
[2021-05-30 11:45] LABS: Glucose,Whole Blood 142 mg/dL (75-99)
[2021-05-30 11:57] LABS: Calcium 7.2 mg/dL (8.4-10.2); Potassium 3.6 mmol/L (3.5-5.1)
--- NOTE | 2021-05-30 16:14 | P.PN ---
Progress Note - Text Progress Note Date: 05/30/21 Chief Complaint: Weak tired This is a 71-year-old patient who follows with visiting physicians Dr. Hendricks. Chronic stable medical conditions include DVT, GERD, hypertension, memory impairment, alcohol use disorder. Peripheral neuropathy alcoholic hepatitis, Hansen's esophagitis. Patient recently in the hospital from May 17 through May 19. Patient had been drinking anywhere from 5-8 screwdrivers a day. drinking for any years. may eat 1 meal a day. Was spending spends her time in the bed. has a bedside commode. Patient They moved from [place] few months ago. Their son and his live nearby. smokes a pack a day. Was Admitted with acute on chronic medical debility from chronic alcoholism. Protein calorie malnutrition. Alcohol use disorder. Treated with CIWA scale Valium. Given multivitamins. IV fluids. Diagnosed to have alcohol induced dementia. Lengthy discussion was held with the about complete cessation of alcohol. Patient presented to ER on this occasion weak and tired. I spoke to the patient's Ramon on the phone. Since return home patient was not asking for food but he could prepare a meal and keep him from before showed 8. She would have arguments with him about alcohol but he was not buying any for her. For last 2 days he noticed that the patient had been weak on the left side and not really communicating much. Not even taking her pills. From the patient just open her eyes but not really talk. May make some sounds. May 29: Patient really does not communicate. Not able to eat. Remains weak on the left side. and son at the bedside. Discussed with them. Patient be made DO NOT RESUSCITATE. Getting IV fluids. With bicarbonate drip. Prognosis guarded. Hypothermic. Heating blanket. Poor urine output. Blood cultures positive for gram-positive cocci in clusters. Vancomycin started May 30: Temperature better. Getting IV bicarbonate. Still lethargic. Family at the bedside. Care was discussed. Pending MRI. Blood cultures positive for gram-positive cocci and ceftriaxone added. Active Medications Hydrocodone Bitart/Acetaminophen (Hydrocodone/Apap 5-325mg 1 Each Tab) 1 each PO Q6HR PRN PRN Reason: Pain Albuterol Sulfate (Albuterol Nebulized 2.5 Mg/3 Ml) 2.5 mg INHALATION RT-QID PRN PRN Reason: Shortness Of Breath Apixaban (Apixaban 5 Mg Tab) 5 mg PO BID [facility]; Protocol Last Admin: 05/30/21 11:02 Dose: 5 mg Documented by: Doxepin HCl (Doxepin 10 Mg Cap) 10 mg PO HS [facility] Last Admin: 05/29/21 20:35 Dose: Not Given Documented by: Folic Acid (Folic Acid 1 Mg Tab) 1 mg PO DAILY [facility] Last Admin: 05/30/21 11:02 Dose: 1 mg Documented by: Sodium Bicarbonate 150 ml/ (Dextrose/Water) 1,150 mls @ 100 mls/hr IV .[id number] [facility] Last Admin: 05/30/21 03:34 Dose: 100 mls/hr Documented by: Ceftriaxone Sodium 2 gm/ (Sodium Chloride) 50 mls @ 100 mls/hr IVPB Q24HR [facility] Last Admin: 05/30/21 14:59 Dose: 100 mls/hr Documented by: Insulin Aspart (Insulin Aspart (Novolog) 100 Unit/Ml Vial) 0 unit SQ ACHS [facility]; Protocol Last Admin: 05/30/21 15:58 Dose: Not Given Documented by: Magnesium Oxide (Magnesium Oxide 400 Mg Tab) 400 mg PO BID [facility] Last Admin: 05/30/21 11:02 Dose: 400 mg Documented by: Metoprolol Succinate (Metoprolol Succinate (Er) 25 Mg Tab.Er.24h) 25 mg PO DAILY [facility] Last Admin: 05/30/21 11:02 Dose: 25 mg Documented by: Multivitamins (Multivitamins, Thera 1 Each Tab) 1 each PO DAILY [facility] Last Admin: 05/30/21 11:02 Dose: 1 each Documented by: Naloxone HCl (Naloxone 0.4 Mg/Ml 1 Ml Vial) 0.2 mg IV Q2M PRN PRN Reason: Opioid Reversal Nicotine (Nicotine 21mg/24hr Patch) 1 patch TRANSDERM DAILY PRN PRN Reason: Nicotine Cravings Ondansetron HCl (Ondansetron Odt 4 Mg Tab) 4 mg PO Q8HR PRN PRN Reason: Nausea Pantoprazole Sodium (Pantoprazole 40 Mg Tablet) 40 mg PO DAILY [facility] Last Admin: 05/30/21 11:02 Dose: 40 mg Documented by: Thiamine HCl (Thiamine 100 Mg/Ml 2 Ml Vial) 50 mg IVP DAILY [facility] Last Admin: 02/28/22 11:02 Dose: 50 mg Documented by: Past medical history to include: DVT, GERD, hypertension, alcohol use disorder, peripheral neuropathy, hallucinations, pancytopenia, alcoholic hepatitis, Hansen's esophagitis, alcohol-induced dementia Social history: Up to a week ago was Drinks anywhere from 5-8 screwdrivers a day. Smokes a pack a day since 1967. Lives with . Uses a bedside commode. Family history: Heart problems Physical examination: VITAL SIGNS: 97.8, 95, 18, 133 with 79, 98% room air GENERAL: Lethargic laying in bed, loss of subcutaneous fat and muscle mass. EYES: Pupils equal. Conjunctiva pale. HEENT: External appearance of nose and ears normal, oral cavity dry mucous membranes. NECK: JVD not raised; masses not palpable. HEART: First and second heart sounds are normal; no edema. LUNGS: Respiratory rate normal; decreased breath sounds. ABDOMEN: Soft, nontender, liver spleen not palpable, no masses palpable. PSYCH: [Not answering questions l. MUSCULOSKELETAL:No Clubbing/cyanosis; loss of muscle mass. Evidence of OA NEUROLOGICAL: Patient occasionally opening her eyes. Left-sided weakness of bit better. Not talking. INVESTIGATIONS, reviewed in the clinical context: May 30: White count 5.8 BUN 24 creatinine 1.18 May 29: White count 5.8 hemoglobin 9.7 platelets 179 potassium 3.8 BUN 27 creatinine 1.41 Blood culture positive for gram-positive clusters Carotid Doppler: Unremarkable Sodium 142 potassium 4.8 by cup 7 BUN 24 creatinine 1.51 albumin 2.6 Urine drug screen positive for oxycodone, tricyclic antidepressant, benzodiazepine EKG tracing personally reviewed by me-normal sinus rhythm. Nonspecific T-wave changes. CT abdomen pelvis without contrast: Calcification associated with visual cortex and left. CT brain without contrast: Sinus disease. Chronic small vessel ischemic changes and age-related atrophy. Chest x-ray film personally reviewed by me-hyperinflated From last admission 2-D echocardiogram: EF 55-60%. Moderate mitral regurgitation. Creatinine on May 17: 0.79 Assessment and plan: -Acute stroke with left paresis. Also affecting the speech.: Not improving Neuro checks. MRI brain. Carotid Doppler. Consult speech. -chronic medical debility from poor oral intake. Long-standing alcoholic. Poor nutritional status. Malnutrition Fall precautions. PT OT. . Bed rest. -Acute dysarthria and dysphagia likely from stroke: Not improving -Acute metabolic encephalopathy from sepsis and stroke: Not improving -Alcohol use disorder. Last drink about 10 days ago Thiamine. Multivitamin. -Sepsis with blood cultures positive for coagulase-negative staph Antibiotic changed to ceftriaxone -Severe protein calorie malnutrition from poor oral intake Evaluate swallowing -Alcohol-induced dementia -COPD, asymptomatic and a smoker -Chronic DVT Eliquis. -Moderate mitral regurgitation Follow clinically -Macrocytic anemia secondary to poor nutritional status Element of iron deficiency anemia. Iron supplement. -GERD Protonix -Nicotine dependence Nicotine patch -Acute kidney injury, prerenal. Patient's creatinine was 0.59 on 05/17/2021: Slow to respond IV fluids -Severe metabolic acidosis Bicarbonate drip -DO NOT RESUSCITATE . Aspiration precautions. Nothing by mouth. IV fluids with bicarbonate drip. Pending MRI. Discussed with family the bedside. Prognosis guarded. Awaiting MRI brain.
[2021-05-30 16:35] LABS: Glucose,Whole Blood 142 mg/dL (75-99)
[2021-05-30] MEDS: DOXEPIN 10 MG CAP PO SCH (20:13)
[2021-05-30 20:20] LABS: Glucose,Whole Blood 158 mg/dL (75-99)
[2021-05-31] MEDS: DEXTROSE 5% IN WATER 1,000 ML with SODIUM BICARB (1 MEQ/ML) 150 ML IV SCH ×2 (03:33→17:11)
[2021-05-31] MEDS: INSULIN ASPART (NovoLOG) 100 UNIT/ML VIAL SQ SCH ×4 (06:32→20:58)
[2021-05-31 06:33] LABS: Glucose,Whole Blood 140 mg/dL (75-99)
[2021-05-31] MEDS: APIXABAN 5 MG TAB PO SCH ×2 (08:54→19:41)
[2021-05-31] MEDS: MAGNESIUM OXIDE 400 MG TAB PO SCH ×2 (08:55→19:42)
[2021-05-31] MEDS: FOLIC ACID 1 MG TAB PO SCH (08:55)
[2021-05-31] MEDS: MULTIVITAMINS, THERA 1 EACH TAB PO SCH (08:55)
[2021-05-31] MEDS: PANTOPRAZOLE 40 MG TABLET PO SCH (08:55)
[2021-05-31] MEDS: METOPROLOL SUCCINATE (ER) 25 MG TAB.ER.24H PO SCH (08:55)
[2021-05-31] MEDS: THIAMINE 100 MG/ML 2 ML VIAL IVP SCH (09:12)
[2021-05-31 09:55] LABS: Basophils % (A) 1 %; Eosinophils # (A) 0.1 k/uL (0-0.7); Eosinophils % (A) 2 %; HCT 33.7 % (34.0-46.0); HGB 11.2 gm/dL (11.4-16.0); Lymphocytes # (A) 1.5 k/uL (1.0-4.8); Lymphocytes % (A) 23 %; MCH 35.3 pg (25.0-35.0); MCHC 33.4 g/dL (31.0-37.0); MCV 105.8 fL (80.0-100.0); Macrocytosis Slight; Mean Platelet Volume 9.6; Monocytes # (A) 0.4 k/uL (0-1.0); Monocytes % (A) 6 %; Neutrophils # (A) 4.5 k/uL (1.3-7.7); Neutrophils % (A) 67 %; Platelet Count 194 k/uL (150-450); RBC 3.19 m/uL (3.80-5.40); RDW 13.1 % (11.5-15.5); WBC 6.8 k/uL (3.8-10.6)
[2021-05-31 10:25] LABS: Potassium 4.9 mmol/L (3.5-5.1)
[2021-05-31 11:48] LABS: Glucose,Whole Blood 142 mg/dL (75-99)
[2021-05-31 16:12] LABS: Glucose,Whole Blood 126 mg/dL (75-99)
[2021-05-31] MEDS: DOXEPIN 10 MG CAP PO SCH (19:41)
[2021-05-31 20:24] LABS: Glucose,Whole Blood 140 mg/dL (75-99)
--- NOTE | 2021-05-31 22:31 | P.PN ---
Progress Note - Text Progress Note Date: 05/31/21 Chief Complaint: Weak tired This is a 71-year-old patient who follows with visiting physicians Dr. Hendricks. Chronic stable medical conditions include DVT, GERD, hypertension, memory impairment, alcohol use disorder. Peripheral neuropathy alcoholic hepatitis, Hansen's esophagitis. Patient recently in the hospital from May 17 through May 19. Patient had been drinking anywhere from 5-8 screwdrivers a day. drinking for any years. may eat 1 meal a day. Was spending spends her time in the bed. has a bedside commode. Patient They moved from [place] few months ago. Their son and his live nearby. smokes a pack a day. Was Admitted with acute on chronic medical debility from chronic alcoholism. Protein calorie malnutrition. Alcohol use disorder. Treated with CIWA scale Valium. Given multivitamins. IV fluids. Diagnosed to have alcohol induced dementia. Lengthy discussion was held with the about complete cessation of alcohol. Patient presented to ER on this occasion weak and tired. I spoke to the patient's Ramon on the phone. Since return home patient was not asking for food but he could prepare a meal and keep him from before showed 8. She would have arguments with him about alcohol but he was not buying any for her. For last 2 days he noticed that the patient had been weak on the left side and not really communicating much. Not even taking her pills. From the patient just open her eyes but not really talk. May make some sounds. May 29: Patient really does not communicate. Not able to eat. Remains weak on the left side. and son at the bedside. Discussed with them. Patient be made DO NOT RESUSCITATE. Getting IV fluids. With bicarbonate drip. Prognosis guarded. Hypothermic. Heating blanket. Poor urine output. Blood cultures positive for gram-positive cocci in clusters. Vancomycin started May 30: Temperature better. Getting IV bicarbonate. Still lethargic. Family at the bedside. Care was discussed. Pending MRI. Blood cultures positive for gram-positive cocci and ceftriaxone added. May 31: Patient today's rather flaccid on the right side. Not even taking her medications. No family present. Unable to speak. I will request of the family to come in tomorrow for a family meeting. Prognosis poor. Getting IV fluids Active Medications Hydrocodone Bitart/Acetaminophen (Hydrocodone/Apap 5-325mg 1 Each Tab) 1 each PO Q6HR PRN PRN Reason: Pain Albuterol Sulfate (Albuterol Nebulized 2.5 Mg/3 Ml) 2.5 mg INHALATION RT-QID PRN PRN Reason: Shortness Of Breath Apixaban (Apixaban 5 Mg Tab) 5 mg PO BID [facility]; Protocol Last Admin: 05/31/21 19:41 Dose: Not Given Documented by: Doxepin HCl (Doxepin 10 Mg Cap) 10 mg PO HS [facility] Last Admin: 05/31/21 19:41 Dose: Not Given Documented by: Folic Acid (Folic Acid 1 Mg Tab) 1 mg PO DAILY [facility] Last Admin: 05/31/21 08:55 Dose: Not Given Documented by: Sodium Bicarbonate 150 ml/ (Dextrose/Water) 1,150 mls @ 100 mls/hr IV .[id number] [facility] Last Admin: 05/31/21 17:11 Dose: 100 mls/hr Documented by: Ceftriaxone Sodium 2 gm/ (Sodium Chloride) 50 mls @ 100 mls/hr IVPB Q24HR [facility] Last Admin: 05/31/21 09:12 Dose: 100 mls/hr Documented by: Insulin Aspart (Insulin Aspart (Novolog) 100 Unit/Ml Vial) 0 unit SQ ACHS [facility]; Protocol Last Admin: 05/31/21 20:58 Dose: 1 unit Documented by: Magnesium Oxide (Magnesium Oxide 400 Mg Tab) 400 mg PO BID [facility] Last Admin: 05/31/21 19:42 Dose: Not Given Documented by: Metoprolol Succinate (Metoprolol Succinate (Er) 25 Mg Tab.Er.24h) 25 mg PO DAILY [facility] Last Admin: 05/31/21 08:55 Dose: Not Given Documented by: Multivitamins (Multivitamins, Thera 1 Each Tab) 1 each PO DAILY [facility] Last Admin: 05/31/21 08:55 Dose: Not Given Documented by: Naloxone HCl (Naloxone 0.4 Mg/Ml 1 Ml Vial) 0.2 mg IV Q2M PRN PRN Reason: Opioid Reversal Nicotine (Nicotine 21mg/24hr Patch) 1 patch TRANSDERM DAILY PRN PRN Reason: Nicotine Cravings Ondansetron HCl (Ondansetron Odt 4 Mg Tab) 4 mg PO Q8HR PRN PRN Reason: Nausea Pantoprazole Sodium (Pantoprazole 40 Mg Tablet) 40 mg PO DAILY [facility] Last Admin: 05/31/21 08:55 Dose: Not Given Documented by: Thiamine HCl (Thiamine 100 Mg/Ml 2 Ml Vial) 50 mg IVP DAILY [facility] Last Admin: 05/31/21 09:12 Dose: 50 mg Documented by: Past medical history to include: DVT, GERD, hypertension, alcohol use disorder, peripheral neuropathy, hallucinations, pancytopenia, alcoholic hepatitis, Hansen's esophagitis, alcohol-induced dementia Social history: Up to a week ago was Drinks anywhere from 5-8 screwdrivers a day. Smokes a pack a day since 1967. Lives with . Uses a bedside commode. Family history: Heart problems Physical examination: VITAL SIGNS: 98.6, 120, 16, 04/21/1985, 93% room air GENERAL: Lethargic laying in bed, loss of subcutaneous fat and muscle mass. EYES: Pupils equal. Conjunctiva pale. HEENT: External appearance of nose and ears normal, oral cavity dry mucous membranes. NECK: JVD not raised; masses not palpable. HEART: First and second heart sounds are normal; no edema. LUNGS: Respiratory rate normal; decreased breath sounds. ABDOMEN: Soft, nontender, liver spleen not palpable, no masses palpable. PSYCH: Patient is noncommunicative MUSCULOSKELETAL:No Clubbing/cyanosis; loss of muscle mass. Evidence of OA NEUROLOGICAL: Patient occasionally opening her eyes. Right-sided flaccid today. Not able to talk. INVESTIGATIONS, reviewed in the clinical context: May 31: White count 6.8 hemoglobin 11.2 potassium 4.9 creatinine 1 May 30: White count 5.8 BUN 24 creatinine 1.18 May 29: White count 5.8 hemoglobin 9.7 platelets 179 potassium 3.8 BUN 27 creatinine 1.41 Blood culture positive for gram-positive clusters Carotid Doppler: Unremarkable Sodium 142 potassium 4.8 by cup 7 BUN 24 creatinine 1.51 albumin 2.6 Urine drug screen positive for oxycodone, tricyclic antidepressant, benzodiazepine EKG tracing personally reviewed by me-normal sinus rhythm. Nonspecific T-wave changes. CT abdomen pelvis without contrast: Calcification associated with visual cortex and left. CT brain without contrast: Sinus disease. Chronic small vessel ischemic changes and age-related atrophy. Chest x-ray film personally reviewed by me-hyperinflated From last admission 2-D echocardiogram: EF 55-60%. Moderate mitral regurgitation. Creatinine on May 17: 0.79 Assessment and plan: -Acute stroke with left paresis, which improved now with right-sided paresis. Dysarthria.: Worsening Neuro checks. MRI brain not to be done because or already poor condition. Patient unable to swallow -chronic medical debility from poor oral intake. Long-standing alcoholic. Poor nutritional status. Malnutrition Fall precautions. PT OT. . Bed rest. -Acute dysarthria and dysphagia likely from stroke: Not improving -Acute metabolic encephalopathy from sepsis and stroke: Not improving -Alcohol use disorder. Last drink about 10 days ago Thiamine. Multivitamin. -Sepsis with blood cultures positive for coagulase-negative staph IV ceftriaxone -Severe protein calorie malnutrition from poor oral intake Evaluate swallowing -Alcohol-induced dementia -COPD, asymptomatic and a smoker -Chronic DVT Eliquis. -Moderate mitral regurgitation Follow clinically -Macrocytic anemia secondary to poor nutritional status Element of iron deficiency anemia. Iron supplement. -GERD Protonix -Nicotine dependence Nicotine patch -Acute kidney injury, prerenal. Patient's creatinine was 0.59 on 05/17/2021: Slow to respond IV fluids -Severe metabolic acidosis Bicarbonate drip -DO NOT RESUSCITATE . Aspiration precautions. Nothing by mouth. IV fluids with bicarbonate drip. Due to patient's overall very poor condition. MRI will not change any clinical course. Patient is doing poorly. The patient come in for a family meeting tomorrow.
[2021-06-01] MEDS: DEXTROSE 5% IN WATER 1,000 ML with SODIUM BICARB (1 MEQ/ML) 150 ML IV SCH (04:48)
[2021-06-01 06:11] LABS: Glucose,Whole Blood 141 mg/dL (75-99)
[2021-06-01] MEDS: INSULIN ASPART (NovoLOG) 100 UNIT/ML VIAL SQ SCH ×2 (06:19→09:59)
[2021-06-01] MEDS: MAGNESIUM OXIDE 400 MG TAB PO SCH (09:59)
[2021-06-01] MEDS: APIXABAN 5 MG TAB PO SCH (09:59)
[2021-06-01] MEDS: FOLIC ACID 1 MG TAB PO SCH (09:59)
[2021-06-01] MEDS: MULTIVITAMINS, THERA 1 EACH TAB PO SCH (09:59)
[2021-06-01] MEDS: METOPROLOL SUCCINATE (ER) 25 MG TAB.ER.24H PO SCH (09:59)
[2021-06-01] MEDS: PANTOPRAZOLE 40 MG TABLET PO SCH (09:59)
[2021-06-01] MEDS: THIAMINE 100 MG/ML 2 ML VIAL IVP SCH (11:15)
[2021-06-01 11:33] LABS: Glucose,Whole Blood 136 mg/dL (75-99)
[2021-06-01] MEDS ORDERED: FUROSEMIDE 10 MG/ML 4 ML VIAL IV STA (14:13)
[2021-06-01] MEDS ORDERED: SCOPOLAMINE 1.5MG/72HR PATCH TRANSDERM SCH (14:15)
--- NOTE | 2021-06-01 14:18 | P.PN ---
Progress Note - Text Progress Note Date: 06/01/21 Chief Complaint: Weak tired This is a 71-year-old patient who follows with visiting physicians Dr. Hendricks. Chronic stable medical conditions include DVT, GERD, hypertension, memory impairment, alcohol use disorder. Peripheral neuropathy alcoholic hepatitis, Hansen's esophagitis. Patient recently in the hospital from May 17 through May 19. Patient had been drinking anywhere from 5-8 screwdrivers a day. drinking for any years. may eat 1 meal a day. Was spending spends her time in the bed. has a bedside commode. Patient They moved from [place] few months ago. Their son and his live nearby. smokes a pack a day. Was Admitted with acute on chronic medical debility from chronic alcoholism. Protein calorie malnutrition. Alcohol use disorder. Treated with CIWA scale Valium. Given multivitamins. IV fluids. Diagnosed to have alcohol induced dementia. Lengthy discussion was held with the about complete cessation of alcohol. Patient presented to ER on this occasion weak and tired. I spoke to the patient's Ramon on the phone. Since return home patient was not asking for food but he could prepare a meal and keep him from before showed 8. She would have arguments with him about alcohol but he was not buying any for her. For last 2 days he noticed that the patient had been weak on the left side and not really communicating much. Not even taking her pills. From the patient just open her eyes but not really talk. May make some sounds. May 29: Patient really does not communicate. Not able to eat. Remains weak on the left side. and son at the bedside. Discussed with them. Patient be made DO NOT RESUSCITATE. Getting IV fluids. With bicarbonate drip. Prognosis guarded. Hypothermic. Heating blanket. Poor urine output. Blood cultures positive for gram-positive cocci in clusters. Vancomycin started May 30: Temperature better. Getting IV bicarbonate. Still lethargic. Family at the bedside. Care was discussed. Pending MRI. Blood cultures positive for gram-positive cocci and ceftriaxone added. May 31: Patient today's rather flaccid on the right side. Not even taking her medications. No family present. Unable to speak. I will request of the family to come in tomorrow for a family meeting. Prognosis poor. Getting IV fluids June 01: Very lethargic. Barely arousable. Has not been taking medications. Medications discontinued. Edema. IV fluid cutback to 20 mL per min tenderness. 1 dose of IV Lasix 40 mg ordered. Met with the family at the bedside including the hospital and son and [id number]. Like to take the patient home tomorrow. Hospice consult to make arrangements. Scopolamine patch. Active Medications Albuterol Sulfate (Albuterol Nebulized 2.5 Mg/3 Ml) 2.5 mg INHALATION RT-QID PRN PRN Reason: Shortness Of Breath Sodium Chloride (Saline 0.9%) 1,000 mls @ 20 mls/hr IV .Q24H [facility] Scopolamine (Scopolamine 1.5mg/72hr Patch) 1 patch TRANSDERM Q72H [facility] Past medical history to include: DVT, GERD, hypertension, alcohol use disorder, peripheral neuropathy, hallucinations, pancytopenia, alcoholic hepatitis, Hansen's esophagitis, alcohol-induced dementia Social history: Up to a week ago was Drinks anywhere from 5-8 screwdrivers a day. Smokes a pack a day since 1967. Lives with . Uses a bedside commode. Family history: Heart problems Physical examination: VITAL SIGNS: 99.2, 120, 18, 131/69, 92% room air GENERAL: Lethargic laying in bed, loss of subcutaneous fat and muscle mass. Not arousable EYES: Pupils equal. Conjunctiva pale. HEENT: External appearance of nose and ears normal, oral cavity dry mucous membranes. NECK: JVD not raised; masses not palpable. HEART: First and second heart sounds are normal; edema present. LUNGS: Respiratory rate normal; decreased breath sounds. ABDOMEN: Soft, nontender, liver spleen not palpable, no masses palpable. PSYCH: Very lethargic MUSCULOSKELETAL:No Clubbing/cyanosis; loss of muscle mass. Evidence of OA NEUROLOGICAL: Does not even open eyes. Right-sided weakness. Not able to talk. INVESTIGATIONS, reviewed in the clinical context: May 31: White count 6.8 hemoglobin 11.2 potassium 4.9 creatinine 1 May 30: White count 5.8 BUN 24 creatinine 1.18 May 29: White count 5.8 hemoglobin 9.7 platelets 179 potassium 3.8 BUN 27 creatinine 1.41 Blood culture positive for gram-positive clusters Carotid Doppler: Unremarkable Sodium 142 potassium 4.8 by cup 7 BUN 24 creatinine 1.51 albumin 2.6 Urine drug screen positive for oxycodone, tricyclic antidepressant, benzodiazepine EKG tracing personally reviewed by me-normal sinus rhythm. Nonspecific T-wave changes. CT abdomen pelvis without contrast: Calcification associated with visual cortex and left. CT brain without contrast: Sinus disease. Chronic small vessel ischemic changes and age-related atrophy. Chest x-ray film personally reviewed by me-hyperinflated From last admission 2-D echocardiogram: EF 55-60%. Moderate mitral regurgitation. Creatinine on May 17: 0.79 Assessment and plan: -Acute stroke with left paresis, which improved now with right-sided paresis. Dysarthria.: Worsening Neuro checks. MRI brain not to be done because or already poor condition. Patient unable to swallow -chronic medical debility from poor oral intake. Long-standing alcoholic. Poor nutritional status. Malnutrition Fall precautions. PT OT. . Bed rest. -Acute dysarthria and dysphagia likely from stroke: Not improving -Acute metabolic encephalopathy from sepsis and stroke: Not improving -Alcohol use disorder. Last drink about 10 days ago Thiamine. Multivitamin. -Sepsis with blood cultures positive for coagulase-negative staph IV ceftriaxone -Severe protein calorie malnutrition from poor oral intake Evaluate swallowing -Alcohol-induced dementia -COPD, asymptomatic and a smoker -Chronic DVT Eliquis. -Moderate mitral regurgitation Follow clinically -Macrocytic anemia secondary to poor nutritional status Element of iron deficiency anemia. Iron supplement. -GERD Protonix -Nicotine dependence Nicotine patch -Acute kidney injury, prerenal. Patient's creatinine was 0.59 on 05/17/2021: Slow to respond IV fluids -Severe metabolic acidosis Bicarbonate drip -DO NOT RESUSCITATE -Comfort measures. DC all medications. Scopolamine patch. DC IV fluids. 1 dose of IV Lasix. Discussed with family. Plan to DC home with hospice tomorrow. Scopolamine patch. All other medications discontinued. 1 dose of IV Lasix and scopolamine patch. Otherwise patient appears comfortable Advanced care planning Comfort measures were discussed with the patient's son and [id number]. Questions answered. Patient is showing no improvement at all. Significant edema present. Has agreed to stop all fluids. Medications disco ntinued. He is scopolamine patch. Hospice consulted to get the patient home tomorrow depending how she does in the next 24 hours. Patient doing very poorly. Questions answered. Time spent for this 25 minutes
[2021-06-01] MEDS: SODIUM CHLORIDE 0.9% 1,000 ML IV SCH ×2 (14:35→17:51)
[2021-06-01 16:28] LABS: Glucose,Whole Blood 123 mg/dL (75-99)
[2021-06-01 20:16] LABS: Glucose,Whole Blood 134 mg/dL (75-99)
[2021-06-01 23:07] VITALS: TEMP 99.1
[2021-06-02 03:50] VITALS: BP 118/64; PULSE 153; RESP 24
--- NOTE | 2021-06-02 17:02 | P.DS ---
Providers Date of admission: 05/28/21 10:50 Expected date of discharge: 06/02/21 Attending physician: Todd Valderrama Primary care physician: Piyush Hendricks MD Hospital Course: Chief Complaint: Weak tired This is a 71-year-old patient who follows with visiting physicians Dr. Hendricks. Chronic stable medical conditions include DVT, GERD, hypertension, memory impairment, alcohol use disorder. Peripheral neuropathy alcoholic hepatitis, Hansen's esophagitis. Patient recently in the hospital from May 17 through May 19. Patient had been drinking anywhere from 5-8 screwdrivers a day. drinking for any years. may eat 1 meal a day. Was spending spends her time in the bed. has a bedside commode. Patient They moved from [place] few months ago. Their son and his live nearby. smokes a pack a day. Was Admitted with acute on chronic medical debility from chronic alcoholism. Protein calorie malnutrition. Alcohol use disorder. Treated with CIWA scale Valium. Given multivitamins. IV fluids. Diagnosed to have alcohol induced dementia. Lengthy discussion was held with the about complete cessation of alcohol. Patient presented to ER on this occasion weak and tired. I spoke to the patient's Ramon on the phone. Since return home patient was not asking for food but he could prepare a meal and keep him from before showed 8. She would have arguments with him about alcohol but he was not buying any for her. For last 2 days he noticed that the patient had been weak on the left side and not really communicating much. Not even taking her pills. From the patient just open her eyes but not really talk. May make some sounds. May 29: Patient really does not communicate. Not able to eat. Remains weak on the left side. and son at the bedside. Discussed with them. Patient be made DO NOT RESUSCITATE. Getting IV fluids. With bicarbonate drip. Prognosis guarded. Hypothermic. Heating blanket. Poor urine output. Blood cultures positive for gram-positive cocci in clusters. Vancomycin started May 30: Temperature better. Getting IV bicarbonate. Still lethargic. Family at the bedside. Care was discussed. Pending MRI. Blood cultures positive for gram-positive cocci and ceftriaxone added. May 31: Patient today's rather flaccid on the right side. Not even taking her medications. No family present. Unable to speak. I will request of the family to come in tomorrow for a family meeting. Prognosis poor. Getting IV fluids June 01: Very lethargic. Barely arousable. Has not been taking medications. Medications discontinued. Edema. IV fluid cutback to 20 mL per min tenderness. 1 dose of IV Lasix 40 mg ordered. Met with the family at the bedside including the hospital and son and [id number]. Like to take the patient home tomorrow. Hospice consult to make arrangements. Scopolamine patch. June 02: Patient earlier today. Past medical history to include: DVT, GERD, hypertension, alcohol use disorder, peripheral neuropathy, hallucinations, pancytopenia, alcoholic hepatitis, Hansen's esophagitis, alcohol-induced dementia Social history: Up to a week ago was Drinks anywhere from 5-8 screwdrivers a day. Smokes a pack a day since 1967. Lives with . Uses a bedside commode. Family history: Heart problems INVESTIGATIONS, reviewed in the clinical context: May 31: White count 6.8 hemoglobin 11.2 potassium 4.9 creatinine 1 May 30: White count 5.8 BUN 24 creatinine 1.18 May 29: White count 5.8 hemoglobin 9.7 platelets 179 potassium 3.8 BUN 27 creatinine 1.41 Blood culture positive for gram-positive clusters Carotid Doppler: Unremarkable Sodium 142 potassium 4.8 by cup 7 BUN 24 creatinine 1.51 albumin 2.6 Urine drug screen positive for oxycodone, tricyclic antidepressant, benzodiazepine EKG tracing personally reviewed by me-normal sinus rhythm. Nonspecific T-wave changes. CT abdomen pelvis without contrast: Calcification associated with visual cortex and left. CT brain without contrast: Sinus disease. Chronic small vessel ischemic changes and age-related atrophy. Chest x-ray film personally reviewed by me-hyperinflated From last admission 2-D echocardiogram: EF 55-60%. Moderate mitral regurgitation. Creatinine on May 17: 0.79 Cause of : Acute stroke Assessment and plan: -Acute stroke with left paresis, which improved now with right-sided paresis. Dysarthria.: Worsening Neuro checks. MRI brain not to be done because or already poor condition. Patient unable to swallow -chronic medical debility from poor oral intake. Long-standing alcoholic. Poor nutritional status. Malnutrition Fall precautions. PT OT. . Bed rest. -Acute dysarthria and dysphagia likely from stroke: Not improving -Acute metabolic encephalopathy from sepsis and stroke: Not improving -Alcohol use disorder. Last drink about 10 days ago Thiamine. Multivitamin. -Sepsis with blood cultures positive for coagulase-negative staph IV ceftriaxone -Severe protein calorie malnutrition from poor oral intake Evaluate swallowing -Alcohol-induced dementia -COPD, asymptomatic and a smoker -Chronic DVT Eliquis. -Moderate mitral regurgitation Follow clinically -Macrocytic anemia secondary to poor nutritional status Element of iron deficiency anemia. Iron supplement. -GERD Protonix -Nicotine dependence Nicotine patch -Acute kidney injury, prerenal. Patient's creatinine was 0.59 on 05/17/2021: Slow to respond IV fluids -Severe metabolic acidosis Bicarbonate drip -DO NOT RESUSCITATE -Comfort measures. DC all medications. Scopolamine patch. DC IV fluids. 1 dose of IV Lasix. Disposition: Patient Plan - Discharge Summary Discharge Rx Participant: No New Discharge Prescriptions: No Action Apixaban [Eliquis] 5 mg PO BID LORazepam [Ativan] 1 mg PO BID PRN PRN Reason: Anxiety Pantoprazole [Protonix] 40 mg PO DAILY Naltrexone HCl [Revia] 50 mg PO DAILY #30 tablet Thiamine [Vitamin B-1] 100 mg PO BID-W/MEALS #30 tab Folic Acid 1 mg PO DAILY #30 tablet Metoprolol Succinate (ER) [Toprol XL] 25 mg PO DAILY 30 Days #30 tab HYDROcodone/APAP 5-325MG [[place] 5-325] 1 tab PO Q6HR PRN PRN Reason: Pain Ondansetron Odt [Zofran ODT] 4 mg PO Q8HR PRN PRN Reason: Nausea Magnesium Oxide [Mag-Ox] 400 mg PO BID #30 tab Doxepin [SINEquan] 10 mg PO HS #30 capsule Albuterol Inhaler [Ventolin Hfa Inhaler] 2 puff INHALATION RT-QID PRN PRN Reason: Shortness Of Breath Nicotine 21Mg/24Hr Patch [Habitrol] 1 patch TRANSDERM DAILY PRN PRN Reason: Nicotine Cravings Disulfiram See Taper PO DIRECTED Multivitamins, Thera [Multivitamin (formulary)] 1 tab PO DAILY Discharge Medication List Apixaban [Eliquis] 5 mg PO BID 03/16/21 [History] Folic Acid 1 mg PO DAILY #30 tablet 03/18/21 [Rx] Metoprolol Succinate (ER) [Toprol XL] 25 mg PO DAILY 30 Days #30 tab 03/18/21 [Rx] HYDROcodone/APAP 5-325MG [[place] 5-325] 1 tab PO Q6HR PRN 05/17/21 [History] LORazepam [Ativan] 1 mg PO BID PRN 05/17/21 [History] Ondansetron Odt [Zofran ODT] 4 mg PO Q8HR PRN 05/17/21 [History] Pantoprazole [Protonix] 40 mg PO DAILY 05/17/21 [History] Doxepin [SINEquan] 10 mg PO HS #30 capsule 05/19/21 [Rx] Magnesium Oxide [Mag-Ox] 400 mg PO BID #30 tab 05/19/21 [Rx] Naltrexone HCl [Revia] 50 mg PO DAILY #30 tablet 05/19/21 [Rx] Thiamine [Vitamin B-1] 100 mg PO BID-W/MEALS #30 tab 05/19/21 [Rx] Albuterol Inhaler [Ventolin Hfa Inhaler] 2 puff INHALATION RT-QID PRN 05/28/21 [History] Disulfiram See Taper PO DIRECTED 05/28/21 [History] Multivitamins, Thera [Multivitamin (formulary)] 1 tab PO DAILY 05/28/21 [History] Nicotine 21Mg/24Hr Patch [Habitrol] 1 patch TRANSDERM DAILY PRN 05/28/21 [Histo ry] Follow up Appointment(s)/Referral(s): Piyush Hendricks MD [Primary Care Provider] - 1-2 days Discharge Disposition: - Preliminary Cause of Preliminary Cause of : Acute stroke
== END 2021-06-02 06:13 | disposition expired | DRG 871 ==
LOC: EC 07:16 → 3SCARD 10:50
PROVIDERS: ADMIT Hospitalist; ATTEND Hospitalist
DX: A41.1 Sepsis due to other specified staphylococcus (principal); G93.41 Metabolic encephalopathy; I63.9 Cerebral infarction, unspecified; E43 Unspecified severe protein-calorie malnutrition; N17.9 Acute kidney failure, unspecified; G81.94 Hemiplegia, unspecified affecting left nondominant side; F10.27 Alcohol dependence with alcohol-induced persisting dementia; E87.2 Acidosis; D61.818 Other pancytopenia; G81.01 Flaccid hemiplegia affecting right dominant side; I82.509 Chronic embolism and thrombosis of unspecified deep veins of unspecified lower extremity; Z66 Do not resuscitate; Z51.5 Encounter for palliative care; E86.0 Dehydration; D50.9 Iron deficiency anemia, unspecified; D53.9 Nutritional anemia, unspecified; E87.5 Hyperkalemia; F17.210 Nicotine dependence, cigarettes, uncomplicated; F32.A Depression, unspecified; I10 Essential (primary) hypertension; I34.0 Nonrheumatic mitral (valve) insufficiency; K21.9 Gastro-esophageal reflux disease without esophagitis; J44.9 Chronic obstructive pulmonary disease, unspecified; R47.1 Dysarthria and anarthria; R13.10 Dysphagia, unspecified; K22.70 Barrett's esophagus without dysplasia; G62.9 Polyneuropathy, unspecified; K70.10 Alcoholic hepatitis without ascites; Z68.20 Body mass index [BMI] 20.0-20.9, adult; Z79.01 Long term (current) use of anticoagulants; Z79.899 Other long term (current) drug therapy
CPT/HCPCS: 36415; 70450; 71045; 74176; 80048; 80053; 80143; 80306; 80320; 81003; 82140; 82550; 82803; 83605; 83735; 83930; 84443; 84484; 85025; 85610; 85730; 87040; 93005; 93880; 96374; 96375; 99285